=== PATIENT | male | born 1935 | race Caucasian/White ===

== ENCOUNTER 2020-02-06 06:29 | Day surgery (SDC) | payer OTHER ==
[2020-02-03 12:04] VITALS: BMI 27.9
--- NOTE | 2020-02-03 12:33 | RAD REPORT ---
EXAM DESCRIPTION: RAD - Chest Pa And Lat (2 Views) - 02/03/2020 12:27 pm CLINICAL HISTORY: pre-op Chest pain. COMPARISON: Chest Pa And Lat (2 Views) dated 12/22/2017; Abdomen Acute Series dated 04/18/2017; Chest P a And Lat (2 Views) dated 02/09/2017; Chest Pa And Lat (2 Views) dated 08/22/2016 FINDINGS: The lungs are emphysematous with linear scarring in both lung bases. Areas of pleural calc ification again noted, unchanged. The heart is normal in size. No displaced fractures. IMPRESSION: Moderate diffuse COPD.
[2020-02-03 12:54] LABS: Basophils % 0.8 % (0-1.3); Hematocrit 40.3 % (39.6-49.0); Lymphocytes % 23.6 % (15.3-44.8); MPV 8.5 fL (7.6-11.3); RBC Red Blood Cell Count 3.97 M/uL (4.33-5.43)
[2020-02-03 12:58] LABS: Protime INR 1.2
[2020-02-03 13:13] LABS: Potassium 4.6 mmol/L (3.5-5.1)
[2020-02-03 13:28] LABS: Blood Morphology Comment NOT SEEN (NOT SEEN); Platelet Estimate ADEQ; White Blood Cell Scan OK (OK)
--- OUTSIDE RECORDS SUMMARY | 2020-02-06 06:32 | XMS REPORT | Continuity of Care Document ---
:1935 Author Organization [facility] t Address 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 [place] [facility] 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 [place] of sinus[place] [facility] Mass of Mass of Problem Active Univers sinus sinus [facility] [place] [facility] Gait Gait Problem Active Univers disturbanc disturbanc it y of e e [place] [facility] Neuropathy Neuropathy Problem Active U nivers , , [place] peripheral peripheral [place] Problem Active Univers (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) Ph ysici ans Hearing Hearing Problem Active Univers loss, loss, [place]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 bilateral [place] At high At high Problem Active Univers risk for risk for ity of falls falls [place] [facility] Vertigo Vertigo Problem Active Univers [facility] [place] [facility] Otalgia of Otalgia of Problem Active U nivers both ears both ears [facility] [place] [facility] 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 ity of septum septum [place] [facility] SOB SOB Problem Active Univers (shortness (shortness it y of [place] breath[place] breath[place] exertion exertion ans History of History of Problem Resolve Univers 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 sinus[place] Phys [place] ans History of History of Problem Resolve Univers High blood High blood d it y of pressure pressure [place] [facility] Asbestos Asbestos Problem Active Unive rs exposure exposure it[facility] of [place] [facility] ans Abnormal Abnormal Problem Active Unive rs CT of the CT of the ity of chest chest [place] [facility] ans 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 [facility] [place] [facility] Sinusitis Sinusitis Problem Active Uni vers [facility] [place] [facility] Allergies, Adverse Reactions, Alerts Allergy Allergy Status Severity Reaction(s) Onset Inactive Treating Comm ents Source Name Type Date Date Clinician Demerol drug Active Univers TABS allergy [facility] [place] [facility] Penicill drug Active Univers ins allergy [facility] [place] [facility] Family History Family Member Diagnosis Comments Start Date Stop Date Source Sibling Family history of Univers [facility] of [place] allergies Physicians Mother Family history of Univers [facility] cancer Physicians Sister Family history of Univers [place] type 2 diabetes Physician s mellitus Sister Family history of Univers [place] malignant neoplasm Physic ians Social History Smoking Status Start Date Stop Date Source Former smoker [facility] xa Physicians Medications Ordered Filled Start Stop Current Ordering Indication Dosage Frequency Signature Comments Components Source Medication Medication Date Date Medication? Clinician (SIG) Name Name Teodora Araiza Yes JOS 2 QD TAKE 2 Uni vers 186 MG Oral 186 MG Oral 1-15 OSTROSKY CAPSULE ity of Capsule Capsule 00:00: M.D. DAILY [place] [facility] Spiriva Spiriva 2016-03 Yes IVETH QD INHALE 2 Uni vers Respimat Respimat 2-21 العراقي INHALATION ity of 1.25 1.25 00:00: M.D. S BY MOUTH [place] MCG/ACT MCG/ACT 00 DAILY Physici Inhalation Inhalation ans Aerosol Aerosol Solution Solution Teodora Araiza Yes JOS 2 QD TAKE 2 Uni vers 186 MG Oral 186 MG Oral 7-17 OSTROSKY CAPSULE ity of Capsule Capsule 00:00: M.D. DAILY [place] Physici ans Voriconazol Voriconazol Yes SHAE Q12H TAKE 1 Univers e 200 MG e 200 MG 2-27 ERICSSON TABLET i ty of Oral Tablet Oral Tablet 00:00: M.D. EVERY 12 [place] 00 HOURS Physici DAILY. ans Ondansetron Ondansetron 2016-0 Yes SHAE 1 Q0.3333D TAKE 1 Univers HCl - 4 MG HCl - 4 MG 2-27 ERICSSON TABLET 3 ity of Oral Tablet Oral Tablet 00:00: M.D. TIMES [place] 00 DAILY Physici ans carBAMazepi carBAMazepi 2015-03 Yes BENNIE 2 Q0.5D TAKE 2 Univers ne 100 MG ne 100 MG 1-30 GUTHIKONDA TABLET ity of Oral Tablet Oral Tablet 00:00: M.D. TWICE [place] Chewable Chewable 00 DAILY Physic i ans Lactulose Lactulose 2015-03 Yes MERRY 15 QD TAKE 15 ML Univers 10 GM/15ML 10 GM/15ML 1-02 MARS M.D. DAILY. ity of Oral Oral 00:00: [place] Solution Solution 00 Physici ans predniSONE predniSONE 2015-03 Yes MERRY take 4 Univers 10 MG Oral 10 MG Oral 1-02 AMRS M.D. tabs for 1 ity of Tablet Tablet 00:00: week [place] 00 take 2 Physici tabs for 3 ans days then 1 tab for 4 days. Diclofenac Diclofenac 2015-03 Yes MERRY 1 Q6H TAKE 1 Univers Sodium 50 Sodium 50 0-28 MARS M.D. TABLET ity of MG Oral MG Oral 00:00: EVERY 6 [place] Tablet Tablet 00 HOURS PRN Physic i Delayed Delayed pain ans Release Release Montelukast Montelukast Yes R.N. U nivers Sodium 10 Sodium 10 ity o f MG Oral MG Oral [place] Tablet Tablet Physici ans Omeprazole Omeprazole Yes R.N. Uni vers 40 MG Oral 40 MG Oral ity of Capsule Capsule [place] Delayed Delayed Physici Release Release ans Bystolic 10 Bystolic 10 Yes R.N. U nivers MG Oral MG Oral ity of Tablet Tablet [place] [facility]ici ans Vital Signs Vital Name Observation Time Observation Value Comments Source BP Systolic 2018-06-29 150 mm[Hg] Location: [facility] 11:29:00 Position: [place] Physician s Sitting BP Diastolic 2018-06-29 79 mm[Hg] Location: [facility] 11:29:00 Position: [place] Physician s Sitting Height 2018-06-29 70 [in_us] University of 11:29:00 [place] Physician s Weight 2018-06-29 163 [lb_av] University of 11:29:00 [place] [facility]ician s Body Mass Index 2018-06-29 23.39 kg/m2 University o f Calculated 11:29:00 [place] Physician s Heart Rate 2018-06-29 64 /min University of 11:29:00 [place] Phys[facility] s Respiration Rate 2018-06-29 18 /min University of 11:29:00 [place] Physician s O2 SAT 2018-06-29 98 % Source: [place] [facility] 11:29:00 [place] Physician s BP Systolic 2017-07-14 152 mm[Hg] University of 08:27:00 [place] Physician s BP Diastolic 2017-07-14 78 mm[Hg] University of 08:27:00 [place] Physician s Height 2017-07-14 70 [in_us] University of 08:27:00 [place] [facility]ician s Weight 2017-07-14 156.375 [lb_av] University o f 08:27:00 [place] [facility] s Body Mass Index 2017-07-14 22.44 kg/m2 University o f Calculated 08:27:00 [place] Physician s Temperature 2017-07-14 97.1 [degF] Method: Oral University of 08:27:00 [place] [facility] Heart Rate 2017-07-14 65 /min University of 08:27:00 [place] [facility] s Respiration Rate 2017-07-14 18 /min University of 08:27:00 [place] Phys[facility] s O2 SAT 2017-07-14 100 % Source: [facility] 08:27:00 [place] Phys[facility] s BP Systolic 2017-05-18 146 mm[Hg] University of 08:33:00 [place] Physician s BP Diastolic 2017-05-18 81 mm[Hg] University of 08:33:00 [place] [facility] s Height 2017-05-18 70 [in_us] University of 08:33:00 [place] [facility] s Weight 2017-05-18 154 [lb_av] University of 08:33:00 [place] [facility] s Body Mass Index 2017-05-18 22.1 kg/m2 University o f Calculated 08:33:00 [place] [facility] s Heart Rate 2017-05-18 56 /min University of 08:33:00 [place] Phys[facility] s BP Systolic 2017-04-30 173 mm[Hg] University of 13:21:00 [place] Phys[facility] s BP Diastolic 2017-04-30 81 mm[Hg] University of 13:21:00 [place] Physician s Height 2017-04-30 70 [in_us] University of 13:21:00 [place] [facility] s Weight 2017-04-30 165 [lb_av] University of 13:21:00 [place] [facility] s Body Mass Index 2017-04-30 23.68 kg/m2 University o f Calculated 13:21:00 [place] Phys[facility] s Heart Rate 2017-04-30 58 /min University of 13:21:00 [place] [facility] s Respiration Rate 2017-04-30 18 /min University of 13:21:00 [place] Physician s O2 SAT 2017-04-30 98 % Source: RA University of 13:21:00 [place] Physician s BP Systolic 2017-04-27 155 mm[Hg] University of 10:37:00 [place] Physician s BP Diastolic 2017-04-27 80 mm[Hg] University of 10:37:00 [place] Phys[facility] s Height 2017-04-27 70 [in_us] University of 10:37:00 [place] [facility] s Weight 2017-04-27 164 [lb_av] University of 10:37:00 [place] Phys[facility] s Body Mass Index 2017-04-27 23.53 kg/m2 University o f Calculated 10:37:00 [place] [facility] s Heart Rate 2017-04-27 65 /min University of 10:37:00 [place] Physician s BP Systolic 2017-03-30 128 mm[Hg] University of 10:54:00 [place] Physician s BP Diastolic 2017-03-30 66 mm[Hg] University of 10:54:00 [place] [facility] s Height 2017-03-30 70 [in_us] University of 10:54:00 [place] Phys[facility] s Weight 2017-03-30 163 [lb_av] University of 10:54:00 [place] [facility] s Body Mass Index 2017-03-30 23.39 kg/m2 University o f Calculated 10:54:00 [place] [facility] s Heart Rate 2017-03-30 76 /min University of 10:54:00 [place] [facility] s BP Systolic 2017-03-05 160 mm[Hg] University of 14:35:00 [place] [facility] s BP Diastolic 2017-03-05 67 mm[Hg] University of 14:35:00 [place] [facility] s Height 2017-03-05 70 [in_us] University of 14:35:00 [place] [facility] s Weight 2017-03-05 164 [lb_av] University of 14:35:00 [place] [facility] Body Mass Index 2017-03-05 23.53 kg/m2 University o f Calculated 14:35:00 [place] [facility] s Temperature 2017-03-05 97.2 [degF] Method: Oral University of 14:35:00 [place] [facility] Heart Rate 2017-03-05 56 /min University of 14:35:00 [place] [facility] s Respiration Rate 2017-03-05 18 /min University of 14:35:00 [place] [facility] s O2 SAT 2017-03-05 100 % Source: [facility] [place] [facility] 14:35:00 [place] [facility] s BP Systolic 2017-02-02 161 mm[Hg] University 11:27:00 [place] [facility] s BP Diastolic 2017-02-02 72 mm[Hg] [facility] 11:27: [place] [facility] s Height 2017-02-02 70 [in_us] [facility] 11:27: [place] [facility] s Weight 2017-02-02 164.5 [lb_av] [facility] 11:27: [place] [facility] Body Mass Index 2017-02-02 23.6 kg/m2 University o f Calculated 11:27:00 [place] [facility] s Temperature 2017-02-02 97.8 [degF] [facility] 11:27:00 [place] [facility] Heart Rate 2017-02-02 64 /min University 11:27:00 [place] [facility] Respiration Rate 2017-02-02 18 /min [facility] 11:27:00 [place] [facility] s O2 SAT 2017-02-02 100 % Source: [facility] [place] [facility] 11:27:00 [place] [facility] Procedures Procedure Date / Time Performing Clinician Source Performed [QLH] CMP W/EGFR 2018-06-29 00:00:00 [facility] Physicians [QLH] SED RATE BY 2018-06-29 00:00:00 [facility] MODIFIED [place] Physicians [QLH] C-REACTIVE PROTEIN 2018-06-29 00:00:00 [facility] Physicians [QLH] CBC (INCLUDES 2017-07-14 00:00:00 [facility] DIFF/PLT) Physicians [QLH] CMP W/EGFR 2017-07-14 00:00:00 [facility] [QLH] SED RATE BY 2017-07-14 00:00:00 [facility] MODIFIED [place] Physicians [QLH] C-REACTIVE PROTEIN 2017-07-14 00:00[facility]wo [facility] 2017-07-14 00:00:00 [facility] [id number] Chest wo contrast 2017-04-30 00:00:00 [facility] [id number] Physicians [L] GI Profile, Stool, 2017-04-23 00:00:00 [facility] PCR Physicians [QLH] CMP W/EGFR 2017-04-23 00:00:00 [facility] [QLH] CBC (INCLUDES 2017-04-23 00:00:00 [facility] DIFF/PLT) Physicians [QLH] SED RATE BY 2017-03-30 00:00:00 [facility] [QLH] HEPATIC FUNCTION 2017-03-30 00:00:00 [facility] PANEL Physicians [QLH] SED RATE BY 2017-02-02 00:00:00 [facility] MODIFIED [facility] Physicians [QL] C-REACTIVE PROTEIN 2017-02-02 00:00:00 [facility] Physicians [QLH] CBC (INCLUDES 2017-02-02 00:00:00 [facility] DIFF/PLT) Physicians [QLH] CBC (INCLUDES 2016-12-29 00:[facility] DIFF[facility]PLT[facility] Physicians [QL] COMPREHENSIVE 2016-12-29 00:00:00 [facility] METABOLIC PANEL W/O eGFR Physici ans MRI Brain w/wo contrast 2016-12-29 00:00:00 [facility] [id number] Physicians History of Cataract [facility] Surgery Physicians History of Nasal [facility] [place] septoplasty Physicians History of Sinus surgery [facility] Physicians Plan of Care Planned Activity Planned Date Details Comments Source Diagnostic Test 2017-08-28 CT Chest wo [place] [facility] Pending 00:00:00 contrast [id number] Physicians [code = 59481] Diagnostic Test 2017-08-28 CT Chest wo [place] [facility] Pending 00:00:00 contrast 64003 Physicians [code = 96508] Diagnostic Test 2017-08-28 CT Chest wo [facility] Pending 00:00:00 contrast [id number] Physicians [code = 23808] Encounters Start End Encounter Admission Attending Care Care Encounter Source Date/Time Date/Time Type Type Clinicians Facility Department ID 2018-11-08 2018-11-09 Emergency [facility]ly [facility] [id number] 22:38:50 00:51:00 Vale Martinez [id number] [place] [id number] [place] [id number] 2018-06-29 2018-06-29 AppointLENNOX G[facility] Infectious 51 [id number] Univers 11:00:00 11:00:00 t; Nita ARGUELLO Diseases [facility] [place] CHEN M.D. Physi ci ans 2017-07-14 2017-07-14 [facility]oint[facility] Infectious [id number] Univers 08:30:00 08:30:00 t; Nita ARGUELLO Diseases [facility] [place] CHEN M.D. Physi ci ans 2017-05-18 2017-05-18 [facility]oint[facility]X [facility] Infectious [id number] Univers 08:30:00 08:30:00 t; Nita ARGUELLO Diseases [facility] [place] CHEN M.D. Physi ci ans 2017-04-30 2017-04-30 AppointLENNOX [facility] & [id number] Univers 13:00:00 13:00:00 t; IVETH العراقي M.D. Sleep ity deny LAZARO M.D. [place] Physici ans 2017-04-27 2017-04-27 AppointLENNOX [facility] Infectious [id number] Univers 10:30:00 10:30:00 t; Nita ARGUELLO Diseases [facility] [place] CHEN M.D. Physi ci ans 2017-03-30 2017-03-30 AppointLENNOX [facility] Infectious [id number] Univers 10:30:00 10:30:00 t; Nita ARGUELLO Diseases [facility] [place] CHEN M.D. Physi ci ans 2017-03-05 2017-03-05 Appointmen LENNOX العراقي Pulmonary & [id number] Univers 14:00:00 14:00:00 t; IVEHT العراقي M.D. Sleep ity deny LAZARO M.D. [place] Physici ans 2017-02-02 2017-02-02 AppointLENNOX [facility] Infectious 35 [id number] Univers 10:30:00 10:30:00 t; JOS, M.D. Diseases [facility] [place] CHEN Nita ARGUELLO Physi ci ans 2016-12-29 2016-12-29 Appointmen APRIL, [facility] UTP [id number] Univers 10:30:00 10:30:00 t; Nita ARGUELLO APRIL [place] ARGEULLO M.D. Physi ci ans 2016-09-29 2016-09-29 Appointmen APRIL, [facility] UTP [id number] Univers 10:30:00 10:30:00 t; Nita ARGUELLO [place] ARGUELLO M.D. Physi ci ans 2016-07-21 2016-07-21 Appointmen APRIL, [facility] UTP [id number] Univers 08:30:00 08:30:00 t; Nita ARGUELLO [place] ARGUELLO M.D. Physi ci ans 2016-07-14 2016-07-14 Appointmen ADILSON, [facility] UTP [id number] Univers 10:40:00 10:40:00 t; celestina KAUFMAN M.D. [place] Kenisha KAUFMAN M.D. ans 2016-05-12 2016-05-12 Appointmen ADILSON, [facility] UTP [id number] Univers 08:40:00 08:40:00 t; celestina KAUFMAN M.D. [place] Kenisha KAUFMAN M.D. ans 2016-02-13 2016-02-13 Appointmen JYOTHI, [facility] UTP [id number] Univers 13:00:00 13:00:00 t; celestina AVERY M.D., LALITHA, Physi ci M.D. ans 2016-02-06 2016-02-06 Appointmen HARRISOU UTP UTP [id number] Univers 13:15:00 13:15:00 t; , Sandeep García M.D. Physici EFFROSYNI, ans MVarun 2016-01-24 2016-01-24 Appointmen MARS, LENNOX UTP [id number] Univers 14:00:00 14:00:00 t; MERRY CREWS ity o f WILLIAM, M.D. [place] M.D. Physici ans 2016-01-08 2016-01-08 Appointmen LENNOX CREWS [facility] [id number] Univers 14:00:00 14:00:00 t; MERRY CREWS ity o f WILLIAM, M.D. [place] M.D. Physic ans 2015-12-27 2015-12-27 Appointmen LENNOX CREWS UTP [id number] Univers 14:15:00 14:15:00 t; MERRY CREWS ity o f WILLIAM, M.D. [place] M.D. [facility] ans Results Test Description Test Time Test Comments Results Result Comments Source [[facility]] CBC (INCLUDES DIFF/PLT) 2018-06-29 12:25:01 Test Item Value Reference Range Interpretation Comme nts WBC (test code = 6690-2) 5.7 {K/CMM} 3.7-10.4 RBC; Below Low Threshold (test code = 789-8) 3.17 {M/CMM} 4.70-6.10 Hgb; Below Low Threshold (test code = 718-7) 11.9 g/dl 14.0-18.0 Hct; Below Low Threshold (test code = 23177-0) 35.9 % 42.0-54 .0 MCV; Above High Threshold (test code = 787-2) 113.2 fL 80.0-94. 0 MCH; Above High Threshold (test code = 785-6) 37.6 pg 27.0-31. 0 MCHC (test code = 786-4) 33.2 g/dl 32.0-36.0 RDW; Above High Threshold (test code = 788-0) 15.8 % 11.5-14. 5 Platelet (test code = 85487-7) 205 {K/CMM} 133-450 Mean Platelet Volume (test code = 05615-5) 7.4 fL 7.4-10.4 University [facility] Physicians[[facility]] CMP [id number] 12:25:01 Test Item Value Reference Range Interpretation Comments Sodium Level 142 {mEq/l} 135-145 (test code = 2951-2) Potassium Level 4.8 {mEq/l} 3.5-5.1 (test code = 2823-3) Chloride Level; 110 {mEq/l} 95-109 Above High Threshold (test code = 2074-0) Carbon Dioxide 26 {mEq/l} 24-32 (test code = 2027-9) AGAP (test code = 10.8 {mEq/l} 10.0-20.0 86339-5) Glucose Lvl; 113 mg/dl 70-99 Adult reference range Above High values reflect the Threshold (test clinical bin delinesof the code = 2345-7) [employer]. Creatinine Lvl; 1.50 mg/dl 0.50-1.40 Above High Threshold (test code = 2160-0) Blood Urea 30 mg/dl 7-22 Nitrogen; Above High Threshold (test code = 3094-0) BUN/Creatinine 20 6-25 Ratio (test code = 3097-3) Total Protein 8.2 g/dl 6.4-8.4 (test code = 2885-2) Albumin Lvl (test 3.7 g/dl 3.5-5.0 code = 1751-7) Globulin; Above 4.5 g/dl 2.7-4.2 High Threshold (test code = 84298-7) A/G Ratio (test 0.8 0.7-1.6 code = 1759-0) Calcium Level 9.3 mg/dl 8.5-10.5 Total (test code = 48587-4) ALT (test code = 18 u/l 0-65 1743-4) AST (test code = 23 u/l 0-37 73782-0) Alk Phos; Above 145 u/l 39-136 High Threshold (test code = 1783-0) Bili Total (test 0.5 mg/dl 0.2-1.3 code = 1974-2) eGFR (test code = 42 The eGFR i s calculated 00744-6) {ML/MIN/1.7} using the CKD-E PI formula. In mos t young, healthyindividu als the eGFR will be >9 0 mL/min/1.73m2. The eGFR declines with a ge. AneGFR of 60-89 may be normal in some population s, particularly th e elderly, forwhom the CKD -EPI formula has not been extensively isidra idated. Use of the eGFR isnot recommended in the following populations:Ind ividuals with unstable c reatinine concentrations, including patient s and those with seri ous co-morbid conditions.Zuri ents with extremes in mus sourav mass or diet.The gabby a above are obtained fr om the National Kidney Disease Education Progr am(NKDEP) which katelyn carcamo recommends that when the eGFR is used in patientswith ex tremes of body mass index for purposes of александр g dosing, the eGFR should be multiplied by t he estimated BMI. [facility]] C-REACTIVE [id number] 12:25:01 Test Item Value Reference Range Interpretation Comments CRP (test code = CRP) 18.9 mg/L <=2.9 [facility]] [id number] 12:25:01 Test Item Value Reference Range Interpretation Comments Segmented Neutrophils (test code 60.7 % 45.0-75.0 = 85326-1) Monocytes (test code = 86382-5) 8.6 % 2.0-12.0 Lymphocytes (test code = 37959-0) 29.0 % 20.0-40.0 Eosinophils (test code = 50882-0) 1.3 % 0.0-4.0 Basophils (test code = 706-2) 0.4 % 0.0-1.0 Segs-Bands # (test code = 3.5 {K/CMM} 1.5-8.1 94189-3) Lymphocytes # (test code = 1.7 {K/CMM} 1.0-5.5 17982-5) Monocytes # (test code = 77675-1) 0.5 {K/CMM} 0.0-0.8 Eosinophils # (test code = 0.1 {K/CMM} 0.0-0.5 15453-8) Plt Morphology (test code = Plt Normal Normal Morphology) Macrocyte (test code = Macrocyte) 3+ None Seen [facility]] SED RATE BY MODIFIED [id number] 12:25:01 Test Item Value Reference Range Interpretation Comments Sedimentation Rate; Above High 82 {mm/hr} 0-15 Threshold (test code = 17210-1) [facility] [id number] 10:13:00 Clinical Indication: J32.9 Chronic sinusitis, unspecified - J32.9 Chronicsinusitis, unspecifiedComparison: Comparison is made to the MR 01/08/2017 exam, and CT study of04/01/2016TECHNIQUE: Multiplanar pre- and post-gadolinium contrast-enhanced MRI of thebrain is performed on the 3 Florence magnet.Contrast: 10 cc of Dotarem was administered.FINDINGS:BRAIN PARENCHYMA: There is an altered marrow signalof the clivus, with aheterogenic gadolinium enhancement pattern consistent with fibroproliferativechanges. Patient with known prior invasive fungal sphenoid sinusitis. Thesphenoid sinus is non pneumatized with fibrotic changes and gadoliniumenhancement. The remaining paranasal sinuses are normally pneumatized. Patientis status post a right maxillary antrectomy and partial ethmoidectomy. There isno nasal polyposis or nasal cavity mass. There are no air-fluid levels present.The orbital fossa contents are normal. There is normal enhancement thecavernous sinus. There is normal flow from the 4th portions of both vertebralarteries, the basilar artery and intracranial carotid arteries. There is noacute cortical infarct, parenchymal hemorrhage or an intra-axial mass. There isminimal cortical atrophy. There is no cerebellar tonsillar ectopia. Thecochlea, vestibule and 7th and 8th nerve fascicles in normal. There is noabnormal leptomeningeal enhancement.VENTRICLES: There is no obstructive hydrocephalus.VESSELS: The expected intracranial flow voids are present. The venous sinusesare grossly unremarkable.IMPRESSION: There is an altered marrow signal of the clivus, with a heterogenicgadolinium enhancementpattern consistent with fibroproliferative changes.Patient with known prior invasive fungal sphenoidsinusitis. The sphenoid sinusis non pneumatized with fibrotic changes and gadolinium enhancement. Theremaining paranasal sinuses are normally pneumatized. Patient is status post aright maxillary antrectomy and partial ethmoidectomy. There is no nasalpolyposis or nasal cavity mass. There are no air-fluid levels present. Theorbital fossa contents are normal. There is normal enhancement the cavernoussinus.There is no acute cortical infarct, parenchymal hemorrhage or an intra-axialmass.SL: KHARI--Read by: Ashok Sepulvedaictated Date/time: 07/31/17 11:09Electronically Signed by: Ashok Sepulveda MD 07/31/1810:23[facility]] CMP [id number] 11:21:00 Test Item Value Reference Range Interpretation Comments GLUCOSE; Above 101 mg/dl 65-99 Fasting refer ence High Threshold interval For someone (test code = without known d lynne, 1547-9) a glucose value between 100 and 125 mg/ dL is consistent withprediabetes and should be confi rmed with afollow-up test. UREA NITROGEN 22 mg/dl 7-25 N (BUN) (test code = UREA NITROGEN (BUN)) CREATININE (test 1.33 mg/dl 0.70-1.11 For patient s >49 years code = CREATININE) of age, t he reference limitfor Creati nine is approximately 1 3% higher for peopleidentifie d as -Francisca n. eGFR NON- 49 > OR = 60 MARSHALLESE (test {ML/MIN/1.7} code = eGFR NON-) eGFR 57 > OR = 60 MARSHALLESE (test {ML/MIN/1.7} code = eGFR ) BUN/CREATININE 17 {CALC} 6-22 N RATIO (test code = BUN/CREATININE RATIO) SODIUM (test code 143 mmol/L 135-146 N = SODIUM) POTASSIUM (test 4.4 mmol/L 3.5-5.3 N code = POTASSIUM) CHLORIDE (test 107 mmol/L 98-110 N code = CHLORIDE) CARBON DIOXIDE 31 mmol/L 20-31 N (test code = CARBON DIOXIDE) CALCIUM (test code 9.0 mg/dl 8.6-10.3 N = CALCIUM) PROTEIN, TOTAL 6.9 g/dl 6.1-8.1 N (test code = PROTEIN, TOTAL) ALBUMIN (test code 3.5 g/dl 3.6-5.1 = ALBUMIN) GLOBULIN (test 3.4 {G/DL 1.9-3.7 N code = GLOBULIN) CALC} ALBUMIN/GLOBULIN 1.0 {CALC} 1.0-2.5 N RATIO (test code = ALBUMIN/GLOBULIN RATIO) BILIRUBIN, TOTAL; 0.5 mg/dl 0.2-1.2 N Normal (test code = 06214-1) ALKALINE 321 u/l 40-115 PHSPHATASE (test code = ALKALINE PHSPHATASE) AST; Normal (test 19 u/l 10-35 N code = 1916-6) ALT; Normal (test 18 u/l 9-46 N code = 1742-6) [facility]] SED RATE BY RANDOLPH [id number] 11:21:00 Test Item Value Reference Range Interpretation Comments SED RATE BY MODIFIED LANREERGREN (test 55 mm/h < OR = 20 code = SED RATE BY MODIFIED ANDREREN) [facility]] CBC (INCLUDES DIFF/PLT)2017-07-21 11:21:00 Test Item Value Reference Range Interpretation Comments WHITE BLOOD CELL COUNT 5.9 {Thousand/u} 3.8-10.8 N (test code = WHITE BLOOD CELL COUNT) RED BLOOD CELL COUNT (test 3.11 {Million/uL} 4.20-5.80 code = RED BLOOD CELL COUNT) HEMOGLOBIN; Below Low 10.4 g/dl 13.2-17.1 Threshold (test code = 46413-3) HEMATOCRIT; Below Low 31.8 % 38.5-50.0 Threshold (test code = 4544-3) MCV; Above High Threshold 102.3 fL 80.0-100.0 (test code = 787-2) MCHC; Normal (test code = 32.7 g/dl 32.0-36.0 N 68256-7) RDW; Normal (test code = 13.5 % 11.0-15.0 N 788-0) PLATELET COUNT; Normal 200 {Thousand/u} 140-400 N (test code = 777-3) MPV; Normal (test code = 10.2 fL 7.5-12.5 N 64742-6) ABSOLUTE NEUTROPHILS (test 3357 {cells/uL} 3466-6657 N code = ABSOLUTE NEUTROPHILS) ABSOLUTE LYMPHOCYTES (test 1918 {cells/uL} 850-3900 N code = ABSOLUTE LYMPHOCYTES) ABSOLUTE MONOCYTES (test 507 {cells/uL} 200-950 N code = ABSOLUTE MONOCYTES) ABSOLUTE EOSINOPHILS (test 89 {cells/uL} 15-500 N code = ABSOLUTE EOSINOPHILS) ABSOLUTE BASOPHILS (test 30 {cells/uL} 0-200 N code = ABSOLUTE BASOPHILS) NEUTROPHILS (test code = 56.9 % N NEUTROPHILS) LYMPHOCYTES (test code = 32.5 % N LYMPHOCYTES) MONOCYTES; Normal (test 8.6 % N code = 44067-1) EOSINOPHILS; Normal (test 1.5 % N code = 90751-8) BASOPHILS; Normal (test 0.5 % N code = 99793-0) [facility]] C-REACTIVE [id number] 11:21:00 Test Item Value Reference Range Interpretation Comments C-REACTIVE PROTEIN (test code = 45.2 mg/L <8.0 C-REACTIVE PROTEIN) [facility] [id number] 19:00:00 Test Item Value Reference Range Interpretation Comments Completed (test code = Completed) DONE [facility][L] GI Profile, Stool, [id number] 09:25:00 Test Item Value Reference Range Interpretation Comments Campylobacter (test code = Not Detected Not Detected Campylobacter) C difficile toxin A/B (test Not Detected Not Detected code = C difficile toxin A/B) Plesiomonas shigelloides (test Not Detected Not Detected code = Plesiomonas shigelloides) Salmonella (test code = Not Detected Not Detected Salmonella) Vibrio (test code = Vibrio) Not Detected Not Detected Vibrio cholerae (test code = Not Detected Not Detected Vibrio cholerae) Yersinia enterocolitica (test Not Detected Not Detected code = Yersinia enterocolitica) Enteroaggressive E coli (test Not Detected Not Detected code = Enteroaggressive E coli) Enteropathogenic E coli (test Not Detected Not Detected code = Enteropathogenic E coli) Enterotoxigenic E coli (test Not Detected Not Detected code = Enterotoxigenic E coli) Urfnei-fehgm-swzcmfuuu E coli Not Detected Not Detected (test code = Pwqjpi-fdodp-dpxahwrdq E coli) E coli O157 (test code = E Not applicable Not Detected coli O157) Shigella/Enteroinvasive E coli Not Detected Not Detected (test code = Shigella/Enteroinvasive E coli) Cryptosporidium (test code = Not Detected Not Detected Cryptosporidium) Cyclospora cayetanensis (test Not Detected Not Detected code = Cyclospora cayetanensis) Entamoeba histolytica (test Not Detected Not Detected code = Entamoeba histolytica) Giardia lamblia (test code = Not Detected Not Detected Giardia lamblia) Adenovirus F 40/41 (test code Not Detected Not Detected = Adenovirus F 40/41) Astrovirus (test code = Not Detected Not Detected Astrovirus) Norovirus GI/GII (test code = Not Detected Not Detected Norovirus GI/GII) Rotavirus A (test code = Not Detected Not Detected Rotavirus A) Sapovirus (test code = Not Detected Not Detected Sapovirus) [facility][] COMPREHENSIVE METABOLIC PANEL W/O eGFR 2017-04-24 09:25:00 Test Item Value Reference Range Interpretation Comments Glucose, Serum; Above High 113 mg/dL 65-99 Threshold (test code = 2345-7) BUN (test code = 3094-0) 21 mg/dL 8-27 Creatine, Serum (test code = 1.23 mg/dL 0.76-1.27 2160-0) eGFR If NonAfricn Am; Below Low 54 mL/min/1.7 >59 Threshold (test code = 63028-5) eGFR If Africn Am (test code = 62 mL/min/1.7 >59 43734-5) BUN/Creatine Ratio (test code = 17 10-24 3097-3) Sodium, Serum (test code = 142 mmol/L 091-779 8205-2) Potassium, Serum (test code = 3.7 mmol/L 3.5-5.2 2823-3) Chloride, Serum (test code = 103 mmol/L 96-106 2075-0) Carbon Dioxide, Total (test 24 mmol/L 18-29 code = 2028-9) Calcium, Serum (test code = 8.9 mg/dL 8.6-10.2 67967-4) Protein, Total, Serum (test 6.4 g/dL 6.0-8.5 code = 2885-2) Albumin, Serum (test code = 3.7 g/dL 3.5-4.7 1751-7) Globulin, Total (test code = 2.7 g/dL 1.5-4.5 84177-3) A/G Ratio (test code = 1759-0) 1.4 1.2-2.2 Bilirubin, Total (test code = 0.4 mg/dL 0.0-1.2 1975-2) Alkaline Phosphatase, S; Above 247 {IU/L} 39-117 High Threshold (test code = 6768-6) AST (SGOT) (test code = 1920-8) 27 {IU/L} 0-40 ALT (SGPT) (test code = 1742-6) 22 {IU/L} 0-44 [facility] wo contrast [id number] 09:05:00CT CHEST WITHOUT CONTRAST:HISTORY: Dyspnea on exertion, history of asbestos exposure.TECHNIQUE: Multislice axial acquisitions were done through the chest withoutcontrast. Sagittal and coronal reformatted images were also obtained. DLP 202mGy/cm.FINDINGS: There is no evidence of lung mass. There is a 1.4 cm groundglassopacity in the medial left apical region adjacent to an osteophyte from thethoracic spine.There are multiple small calcified pleural plaques on both sides with mild softtissue thickening, previously demonstrated on the chest CT of 04/08/2016. Thereis no definite associated pleural mass.There is mild septal thickening in the lung bases. There are no othersignificant pulmonary or pleural abnormalities. There has been resolution of pulmonary edema and bilateral pleural effusions since the previous CT.There is no mediastinal mass or significant lymph node enlargement. Extensiveatherosclerotic calcification in the aorta and coronary arteries is noted.There are no acute osseous abnormalit ies.IMPRESSION:1. Small groundglass opacity in the left apical region. Follow-up CT in 3-6months is recommended. There is no evidence of other lung mass.2. Bilateral calcified pleural plaques without definite pleural mass.3. No other acute CT abnormalities of the chest. [id number] by: Poli Acuña MDDictated Date/time: 04/09/17 16:48Electronically Signed by: Poli Acuña MD 04/09/1815:56FINAL [facility]PORTUn[facility] [[facility]] HEPATIC FUNCTION [id number] 13:43:00 Test Item Value Reference Range Interpretation Comments PROTEIN, TOTAL 7.3 g/dl 6.1-8.1 N (test code = PROTEIN, TOTAL) ALBUMIN (test code 3.9 g/dl 3.6-5.1 N = ALBUMIN) GLOBULIN (test code 3.4 {G/DL 1.9-3.7 N = GLOBULIN) CALC} ALBUMIN/GLOBULIN 1.1 {CALC} 1.0-2.5 N RATIO (test code = ALBUMIN/GLOBULIN RATIO) BILIRUBIN, DIRECT; 0.1 mg/dl < OR = 0.2 N Normal (test code = 57610-1) BILIRUBIN, 0.3 {MG/DL 0.2-1.2 N INDIRECT; Normal JOSHUA} (test code = 1971-1) ALKALINE PHOSPHATE 223 u/l 40-115 (test code = ALKALINE PHOSPHATE) AST; Normal (test 32 u/l 10-35 N code = 1916-6) ALT; Normal (test 26 u/l 9-46 N SPECIMEN R ECEIVED code = 1742-6) DATE AND TIME : [id number] ALKALINE PHSPHATASE 223 u/l 40-115 (test code = ALKALINE PHSPHATASE) [facility]] SED RATE BY MODIFIED [id number] 13:43:00 Test Item Value Reference Range Interpretation Comments SED RATE BY MODIFIED 74 mm/h < OR = 20 SPECIME N RECEIVED DATE HAMILTON (test code AND TI ME: [id number] = SED RATE BY MODIFIED WESTERGREN) [facility]iciansTobacco Use [id number] 20:00:00 Test Item Value Reference Range Interpretation Comments Completed (test code = Completed) DONE [facility]] SED RATE BY MODIFIED [id number] 11:26:00 Test Item Value Reference Range Interpretation Comments SED RATE BY MODIFIED 79 mm/h < OR = 20 SPECIME N RECEIVED DATE HAMILTON (test code AND TI ME: [id number] = SED RATE BY MODIFIED WESTERGREN) [facility]] CBC (INCLUDES DIFF/PLT)2017-02-03 11:26:00 Test Item Value Reference Range Interpretation Comments WHITE BLOOD CELL 9.4 3.8-10.8 N COUNT (test code = {Thousand/u} WHITE BLOOD CELL COUNT) RED BLOOD CELL COUNT 3.16 4.20-5.80 (test code = RED {Million/uL} BLOOD CELL COUNT) HEMOGLOBIN; Below 10.5 g/dl 13.2-17.1 Low Threshold (test code = 93890-6) HEMATOCRIT; Below 31.8 % 38.5-50.0 Low Threshold (test code = 4544-3) MCV; Above High 100.6 fL 80.0-100.0 Threshold (test code = 787-2) MCHC; Normal (test 33.0 g/dl 32.0-36.0 N code = 22382-3) RDW; Normal (test 14.2 % 11.0-15.0 N code = 788-0) PLATELET COUNT; 233 140-400 N Normal (test code = {Thousand/u} 777-3) MPV; Normal (test 9.8 fL 7.5-12.5 N code = 01339-7) ABSOLUTE NEUTROPHILS 6129 2641-8486 N (test code = {cells/uL} ABSOLUTE NEUTROPHILS) ABSOLUTE LYMPHOCYTES 2322 850-3900 N (test code = {cells/uL} ABSOLUTE LYMPHOCYTES) ABSOLUTE MONOCYTES 733 {cells/uL} 200-950 N (test code = ABSOLUTE MONOCYTES) ABSOLUTE EOSINOPHILS 160 {cells/uL} 15-500 N (test code = ABSOLUTE EOSINOPHILS) ABSOLUTE BASOPHILS 56 {cells/uL} 0-200 N (test code = ABSOLUTE BASOPHILS) NEUTROPHILS (test 65.2 % N code = NEUTROPHILS) LYMPHOCYTES (test 24.7 % N code = LYMPHOCYTES) MONOCYTES; Normal 7.8 % N (test code = 30695-4) EOSINOPHILS; Normal 1.7 % N (test code = 15498-9) BASOPHILS; Normal 0.6 % N SPECIMEN R ECEIVED (test code = DATE AND TIME: 50913-2) [id number] [facility]] C-REACTIVE [id number] 11:26:00 Test Item Value Reference Range Interpretation Comments C-REACTIVE PROTEIN 33.5 mg/L <8.0 SPECIMEN RECEIVED DATE (test code = AND TIME: [id number] C-REACTIVE PROTEIN) [facility]] SED RATE BY MODIFIED [id number] 14:32:00 Test Item Value Reference Range Interpretation Comments SED RATE BY MODIFIED WESTERGREN (test 58 mm/h < OR = 20 code = SED RATE BY MODIFIED WESTERGREN) [facility]] CBC (INCLUDES DIFF/PLT)2016-12-29 14:32:00 Test Item Value Reference Range Interpretation Comments WHITE BLOOD CELL COUNT 6.8 {Thousand/u} 3.8-10.8 N (test code = WHITE BLOOD CELL COUNT) RED BLOOD CELL COUNT (test 3.04 {Million/uL} 4.20-5.80 code = RED BLOOD CELL COUNT) HEMOGLOBIN; Below Low 9.7 g/dl 13.2-17.1 Threshold (test code = 01817-4) HEMATOCRIT; Below Low 29.1 % 38.5-50.0 Threshold (test code = 4544-3) MCV; Normal (test code = 95.7 fL 80.0-100.0 N 787-2) MCHC; Normal (test code = 33.3 g/dl 32.0-36.0 N 28088-9) RDW; Normal (test code = 14.2 % 11.0-15.0 N 788-0) PLATELET COUNT; Normal 224 {Thousand/u} 140-400 N (test code = 777-3) MPV; Normal (test code = 9.8 fL 7.5-12.5 N 53261-2) ABSOLUTE NEUTROPHILS (test 4005 {cells/uL} 6170-0481 N code = ABSOLUTE NEUTROPHILS) ABSOLUTE LYMPHOCYTES (test 1979 {cells/uL} 850-3900 N code = ABSOLUTE LYMPHOCYTES) ABSOLUTE MONOCYTES (test 551 {cells/uL} 200-950 N code = ABSOLUTE MONOCYTES) ABSOLUTE EOSINOPHILS (test 218 {cells/uL} 15-500 N code = ABSOLUTE EOSINOPHILS) ABSOLUTE BASOPHILS (test 48 {cells/uL} 0-200 N code = ABSOLUTE BASOPHILS) NEUTROPHILS (test code = 58.9 % N NEUTROPHILS) LYMPHOCYTES (test code = 29.1 % N LYMPHOCYTES) MONOCYTES; Normal (test 8.1 % N code = 29485-2) EOSINOPHILS; Normal (test 3.2 % N code = 95832-1) BASOPHILS; Normal (test 0.7 % N code = 99928-2) [facility]
[2020-02-06] MEDS ORDERED: NA CHLORIDE 0.9% 500 ML ONE (06:59)
[2020-02-06] MEDS ORDERED: LIDOCAINE 1% 20 ML MDV ONE (14:13)
[2020-02-06] MEDS ORDERED: HEPA 1000U/500MLS 1,000 UNIT/500 ML BAG IV ONE (14:13)
[2020-02-06] MEDS ORDERED: MIDAZOLAM HCL 2 MG/2 ML INJ ONE (14:14)
[2020-02-06] MEDS ORDERED: FENTANYL CITR 100 MCG/2 ML ONE (14:14)
[2020-02-06] MEDS ORDERED: ATROPINE SULF 1 MG/10 ML SYR IV ONE (14:14)
[2020-02-06] MEDS ORDERED: ACETYLCYST 20% 4 ML VIAL IH ONE (14:55)
[2020-02-06 18:41] VITALS: BP 123/84; TEMP 97; O2SAT 97
--- NOTE | 2020-02-07 11:39 | OP ---
Date of Procedure: 02/06/2020 Surgeon: Nicholas Mclean MD Clinical Massage Therapist: Dr. Diaz and Ember Goodwin. Procedure: Selective bilateral carotid angiogram. Indication: Bilateral CVD by carotid Doppler. Mr. Sheets is an 84-year-old male, who has had a hi story of hypertension, diabetes, dyslipidemia, cerebrovascular disease, and documented carotid stenos is by Doppler. Recently, he was scheduled for carotid angiogram today as an outpatient. Procedure In Detail: He was brought to the [employer], prepped and draped in the routine sterile fashi on, given Versed and fentanyl for IV sedation. Using the Seldinger technique, 10 cc of Xylocaine was injected in the right common femoral artery area. A 6-Chilean sheath was introduced in the right com mon femoral artery successfully. A JR4 catheter was used to select the right carotid artery initiall y. Then, he was moved to the left carotid artery to select both common carotid. The common carotids were both normal. The external carotids were both normal, but he had a 70% to 80% stenosis in both internal carotid artery right at the ostium. 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 The stenosis in the left carotid was estimated at 70% to 80% stenosis. The patient tolerated the procedure well. There were no complications. Blood Loss: 5 cc. Anesthesia: Total conscious sedation was 45 minutes. Final Impression: Severe bilateral internal carotid artery stenosis. Plan is for bilateral carotid endarterectomy by Dr. Fausto Lay at [facility] in [facility]. Plan: The plan is for him to go home today after 2 hours of bedrest. Angio-Seal was used to close t he case. The patient will continue his medications right now. He will hold his anticoagulant 2 days before his endarterectomy. KATELYN/RAYN Voice ID: [id number] Report ID: [id number]
== END 2020-02-06 18:03 | disposition home or self-care (01) ==
LOC: CCL 06:29
DX: I65.23 Occlusion and stenosis of bilateral carotid arteries (principal); I48.0 Paroxysmal atrial fibrillation; I10 Essential (primary) hypertension; E78.2 Mixed hyperlipidemia; E11.9 Type 2 diabetes mellitus without complications; J44.1 Chronic obstructive pulmonary disease with (acute) exacerbation; F17.210 Nicotine dependence, cigarettes, uncomplicated; Z88.6 Allergy status to analgesic agent; Z20.828 Contact with and (suspected) exposure to other viral communicable diseases
CPT/HCPCS: 85025; 80048; 36415; 85610; 85730; 71046; 36222; U0002; C1893; C1760; J2250; J3010; J7040; J1644

== ENCOUNTER 2020-03-30 00:15 | Emergency (ER) | payer OTHER ==
--- OUTSIDE RECORDS SUMMARY | 2020-03-30 00:18 | XMS REPORT | Clinical Summary ---
:1935 Author Organization [facility] Address [address] [place] [address] Care Team Providers Name Role Phone Peyman Strausslain Unavailable Allergies Active Allergy Reactions Severity Noted Date Comments Meperidine Hcl 11/08/2018 Other reactio n(s): Unknown - See comments Medications Medication Sig Dispensed Refills Start Date End Date Status apixaban (Eliquis) 2.5 Take 2.5 mg by 0 Active mg Tab tablet mouth 2 (two) times daily. montelukast (SINGULAIR) Take 10 mg by 0 Active 10 mg tablet mouth nightly. metoprolol tartrate Take 50 mg by 0 Active (LOPRESSOR) 50 MG tablet mouth 2 (two) times daily. atorvastatin (LIPITOR) Take 10 mg by 0 Active 10 MG tablet mouth daily. sulfaSALAzine Take 500 mg by 0 A ctive (AZULFIDINE) 500 mg mouth 3 (three) tablet times daily as needed. folic acid (FOLVITE) 1 Take 1 mg by 0 Active MG tablet mouth daily. Active Problems Problem Noted Date Stenosis of right carotid artery 02/22/2020 Carotid stenosis, right 02/22/2020 Hypertension Carotid artery occlusion Encounters Date Type Specialty Care Team Description 03/07/2020 Office Visit Cardiology Rosanne, Postoperative s danis Edmondson (Primary Dx) 02/23/2020 Travel 02/22/2020 Surgery Rosanne, ENDARTERECTOMY, Kurt Moy MD 02/22/2020 Anesthesia Event Erik Green, Kaleb Lew 02/22/2020 - Hospital Encounter Cardiology Rosanne, 02/23/2020 Fausto Edmondson MD 02/21/2020 Hospital Encounter Pre-Admission Testing 02/21/2020 Travel 02/20/2020 Office Visit Cardiology Rosanne, Pre-op testing Fausto Edmondson, (Primary Dx) Denton Hsu, JOYCE 02/20/2020 Orders Only General Internal Medicine 02/20/2020 Travel 02/15/2020 Office Visit Cardiology Rosanne, Pre-op testing (Primary Dx); Fausto Edmondson, Essential hy pertension; Bilateral carot id artery occlusion 02/15/2020 Travel after 03/30/2019 Family History Medical History Relation Name Comments Stroke Brother Emphysema Father Stroke Mother Relation Name Status Comments Brother Father Mother Social History Tobacco Use Types Packs/Day Years Used Date Former Smoker 0.25 25 Quit: 1989 Smokeless Tobacco: Current User Chew Alcohol Use Drinks/Week oz/Week Comments Not Currently Sex Assigned at Date Recorded Not on file Last Filed Vital Signs Vital Sign Reading Time Taken Comments Blood Pressure 133/68 03/07/2020 10:54 AM DUSTLESS OPERATOR Pulse 89 03/07/2020 10:54 AM DUSTLESS OPERATOR Temperature 37 C (98.6 F) 03/07/2020 10:54 AM DUSTLESS OPERATOR Respiratory Rate 18 03/07/2020 10:54 AM DUSTLESS OPERATOR Oxygen Saturation 98% 03/07/2020 10:54 AM DUSTLESS OPERATOR room a ir Inhaled Oxygen Concentration - - Weight 86.6 kg (191 lb) 03/07/2020 10:54 AM DUSTLESS OPERATOR Height 177.8 cm (5' 10") 03/07/2020 10:54 AM DUSTLESS OPERATOR Body Mass Index 27.41 03/07/2020 10:54 AM DUSTLESS OPERATOR Plan of Treatment Health Maintenance Due Date Last Done Comments PNEUMOCOCCAL 65+ YRS (1 of 1 - WERZ30_Ytdocgm PCV13) 1999 MEDICARE ANNUAL WELLNESS (YEAR 2 or FIRST YEAR if no 02/15/2000 IPPE) INFLUENZA VACCINE (#1) 2019 DEPRESSION SCREENING (12+) 03/16/2020 Implants Implanted Type Area Glass Cleaner Device Shelf Model / Identifier Expiration Serial / Date Lot Grft Hemshld Dbl Berny 0.3x3.0in [id number] - [id number] IMPLANT S Right: GETINGE 05/13/2024 [id number] / Implanted: Qty: 1 on 02/22/2020 by Fausto Fletcher MD at [facility] Neck IND:MAJAMEST:CV / [id number] Description:HEMASHIELD KNITTED DOUBLE VE LOUR CARDIOVASCULAR FABRIC PATCH FOR RIGHT CAROTID ARTERY Procedures Procedure Name Priority Date/Time Associated Comments Diagnosis MAGNESIUM Routine 02/23/2020 4:19 Results for this AM DUSTLESS OPERATOR procedure are i n the results section. BASIC METABOLIC Routine 02/23/2020 4:19 Results for this PANEL (7) AM DUSTLESS OPERATOR procedure are i n the results section. CBC (HEMOGRAM ONLY) Routine 02/23/2020 4:19 Resu lts for this AM DUSTLESS OPERATOR procedure are i n the results section. TISSUE EXAM AP Routine 02/22/2020 9:24 Results for this AM DUSTLESS OPERATOR procedure are i n the results section. ENDARTERECTOMY,BOONE 02/22/2020 7:29 Carotid stenosis, TID AM DUSTLESS OPERATOR right Special Needs (ICU BED NEEDED) TYPE AND SCREEN, AUTOMATED STAT 02/22/2020 6:34 AM DUSTLESS OPERATOR Results for this procedure are i n the results section . POCT-GLUCOSE METER Routine 02/22/2020 5:50 AM DUSTLESS OPERATOR Results for this procedure are i n the results section . ECG 12-LEAD Routine 02/20/2020 7:59 AM DUSTLESS OPERATOR Procedure Note - Interface, External Ris In - 02/20/2020 9:10 AM DUSTLESS OPERATOR Ventricular Rate 80 BPM Atrial Rate 80 BPM P-R Interval 180 ms QRS Duration 88 ms Q-T Interval 398 ms QTC Calculation(Bazett) 459 ms P [place] 78 degrees R [place] 49 degrees T [place] 39 degrees Normal sinus rhythm Nonspecific ST abnormality Abnormal ECG No previous ECGs available ECG 12-LEAD Routine 02/20/2020 7:59 AM Pre-op testing Result s for this DUSTLESS OPERATOR procedure are i n the results section. SARS-COV2/RT-PCR ([facility] Routine 02/20/2020 7:54 AM Pre-op test ing Results for this & REF LABS) DUSTLESS OPERATOR procedure are i n the results section. CBC W/PLT COUNT & AUTO Routine 02/15/2020 12:14 PM Results for this DIFFERENTIAL DUSTLESS OPERATOR procedure are i n the results section. TYPE AND SCREEN, Routine 02/15/2020 12:14 PM Resu lts for this AUTOMATED DUSTLESS OPERATOR procedure are i n the results section. BASIC METABOLIC PANEL Routine 02/15/2020 12:14 PM Results for this (7) DUSTLESS OPERATOR procedure are i n the results section. CBC W/PLT COUNT & AUTO Routine 02/15/2020 12:14 PM Results for this DIFFERENTIAL DUSTLESS OPERATOR procedure are i n the results section. PROTHROMBIN TIME/INR Routine 02/15/2020 12:13 PM Results for this DUSTLESS OPERATOR procedure are i n the results section. after 03/30/2019 Results CBC (Hemogram only) (02/23/2020 4:19 AM DUSTLESS OPERATOR) Pathologist Sig nature WBC 11.3 (H) 3.5 - 10.5 K/L [facility] RBC 3.10 (L) 4.63 - 6.08 M/L [facility] Hemoglobin 10.3 (L) 13.7 - 17.5 GM/DL [facility] Hematocrit 33.7 (L) 40.1 - 51.0 % [facility] MCV 108.7 (H) 79.0 - 92.2 fL [facility] MCH 33.2 (H) 25.7 - 32.2 pg [facility] MCHC 30.6 (L) 32.3 - 36.5 GM/DL [facility] RDW 14.6 (H) 11.6 - 14.4 % [facility] Platelets 160 150 - 450 K/CU MM [facility] MPV 10.0 9.4 - 12.4 fL [facility] nRBC 0 0 - 0 /100 WBC [facility] Specimen Blood Performing Organization Address City/[facility]/Zipcode Phone Number [address] [address] CENTER Magnesium (02/23/2020 4:19 AM DUSTLESS OPERATOR) Pathologist Sig nature Magnesium 2.1 1.6 - 2.6 mg/dL [facility] Specimen Blood Narrative Performed At Spreader Operator RAINE Davila [facility] Performing Organization Address City/State/Zipcode Phone Number [address] [address] CENTER Basic Metabolic Panel (02/23/2020 4:19 AM DUSTLESS OPERATOR)Only the most recent of2 results within the time period is included. Sodium 139 136 - 145 meq/L [facility] Potassium 5.0 3.5 - 5.1 meq/L [facility] Chloride 106 98 - 107 meq/L [facility] CO2 23 22 - 29 meq/L [facility] BUN 27 (H) 7 - 21 mg/dL [facility] Creatinine 1.48 (H) 0.57 - 1.25 [facility] mg/dL [facility] Glucose 119 (H) 70 - 105 mg/dL [facility] Calcium 8.8 8.4 - 10.2 [facility] mg/dL [facility] EGFR 45Comment: ESTIMATED mL/min/1.73 sq [facility] GFR IS NOT m [facility] ACCURATE [place] CREATININE CLEARANCE IN PREDICTING GLOMERULAR FILTRATION RATE. ESTIMATED GFR IS NOT APPLICABLE FOR DIALYSIS PATIENTS. Specimen Blood Narrative Performed At Spreader Operator ID - KYLIE M [facility] Performing Organization Address City/State/Zipcode Phone Number [facility] [address] [place] [address] CENTER Tissue Exam (02/22/2020 9:24 AM DUSTLESS OPERATOR) Case Report Surgical Pathology Report Case: [id number] [facility] Authorizing Provider: Fausto Vega, Collected: 02/22/2020 09:24 AM [facility] Ordering Location: [facility] [place] Shakir TONG Received: 02/22/2020 10:31 AM PERIOPERATIVE SERVICES Pathologist: Angelo Valdez MD Specimen: Plaque, RIGHT CAROTID PLAQUE DIAGNOSIS ARTERY, RIGHT CAROTID, ENDARTERECTOMY: [facility] Electronically CALCIFIC ATHEROSCLEROTIC PLAQUE [facility] signed by Angelo Valdez Signing Pathologist Direct Phone Line: [facility] MD Naren on 02/24/2020 at 7:08 PM CPT Code(s) 42001; [address]10 [facility] CLINICAL HISTORY Carotid stenosis, [facility] SPECIMEN SOURCE Plaque [facility] GROSS DESCRIPTION Received in formalin labeled the patient's name, accession number and "right carotid plaque" is a 3.4 cm in length by 0.5 cm in diameter raymundo-yellow tubular piece of focally calcified plaque. Representa [facility] tive sections are submitted in A1 following decalcific ation. [facility] CHRISTINA Ross, HT (ASCP) MICROSCOPIC Performed [facility] Specimen Tissue - Plaque (morphologic abnormality ) Performing Organization Address City/[facility]/[place] [address] CENTER Type and screen, automated (02/22/2020 6:34 AM DUSTLESS OPERATOR)Only the most recent of2 resultswithin the time period is included. Pathologist Sig nature ABO/RH AUTOMATED O POSITIVE [facility] Ab Scrn NEGATIVE [facility] Specimen Blood Performing Organization Address [facility]/Rustcode Phone Number [address] [phone] POC-Glucose meter (02/22/2020 5:50 AM DUSTLESS OPERATOR) POC-Glucose Meter 102 70 - 110 [facility] Comment: mg/dL [facility] : TESTED AT [address], [address] [facility] : Spreader Operator/Skilled Laborer ID = [id number] for TONO RIVERA Specimen Blood Performing Organization Address City/[facility]/Zipcode Phone Number [address] [address] CENTER ECG 12 lead (02/20/2020 7:59 AM DUSTLESS OPERATOR) Specimen Narrative Performed At This result has an attachment that is no t available. Ventricular Rate 80 BPM GE MUSE Atrial Rate 80 BPM P-R Interval 180 ms QRS Duration 88 ms Q-T Interval 398 ms QTC Calculation(Bazett) 459 ms P [place] 78 degrees R [place] 49 degrees T [place] 39 degrees Normal sinus rhythm Nonspecific ST abnormality Abnormal ECG No previous ECGs available Confirmed by MD KOWALSKI YOCHAI ([id number]) on 02/20/2020 1:25:49 PM Procedure Note Interface, External Ris In - 02/20/2020 1:26 PM DUSTLESS OPERATOR Ventricular Rate 80 BPM Atrial Rate 80 BPM P-R Interval 180 ms QRS Duration 88 ms Q-T Interval 398 ms QTC Calculation(Bazett) 459 ms P [place] 78 degrees R [place] 49 degrees T [place] 39 degrees Normal sinus rhythm Nonspecific ST abnormality Abnormal ECG No previous ECGs available Confirmed by MD KOWALSKI YOCHAI ([id number]) on 02/20/2020 1:25:49 PM Performing Organization Address City/State/Zipcode Phone Number GE MUSE SARS-CoV2/RT-PCR ([facility] Ref Labs) (02/20/2020 7:54 AM DUSTLESS OPERATOR) SARS-COV2/RT-PCR Negative Not Detected, [facility] Negative, See [facility] external report CENTER for linked test SARS-COV-2 [facility] NANI [facility] PERFORMING LAB [facility] Specimen Other - Nasopharyngeal wall structure (b cristel structure) Narrative Performed At Negative result for this test determines that [facility] SARS-CoV-2 RNA was not present in the specimen above the Limit of Detection (LOD). However, Negative results do not preclude SARS-CoV-2 infection and should not be used as the sole basis for treatment or patient management decisions. Negative results must be combined with clinical observations, patient history, and epidemiological information. A false negative result may occur if a specimen is improperly collected, transported or handled. A false negative result should be considered if patient's recent exposures or clinical presentation indicate that COVID-19 (SARS-CoV-2) is likely and diagnostic tests for other causes of illness are negative. Re-testing should be considered in cases of suspected false negatives. The limit of detection for this assay is 100 copies/mL. This SARS CoV-2 test is a real-time RT-PCR test intended for the qualitative detection of nucleic acid from SARS-CoV-2 in a nasopharyngeal swab specimen collected from individuals suspected of COVID-19 by their healthcare provider. This test has not been Food and Drug Administration (FDA) cleared or approved. This is a modified version of an approved Emergency Use Authorization (EUA) and is in the process of review by the FDA. Once authorized by the FDA, the issued EUA will be effective until the declaration that circumstances exist justifying the authorization of the emergency use of in vitro diagnostic tests for detection and/or diagnosis of COVID-19 is terminated under Section 564(b)(2) of the Act or the EUA is revoked under Section 564(g) of the Act. Testing was performed using the Qureshi SARS-CoV-2 assay. Fact Sheet for Healthcare Providers: https://www.AlloCure.GKN - GloboKasNet/chely/VK_GRME-MeC-2 _HCP_Fact_Sheet_51-471359.pdf Fact Sheet for Healthcare Patients: https://www.PeeplePass/chely/FC_RURV-NbP-7 _Patient_Fact_Sheet_EN_51-852838G1.pdf Performing Laboratory: [place] [address] Performing Organization Address City/State/[place] [address] CENTER CBC with platelet count + automated diff (02/15/2020 12:14 PM DUSTLESS OPERATOR) Pathologist Sig nature WBC 8.5 3.5 - 10.5 [facility] K/L [facility] RBC 3.82 (L) 4.63 - 6.08 [facility] M/L [facility] Hemoglobin 12.5 (L) 13.7 - 17.5 [facility] GM/DL [facility] Hematocrit 41.5 40.1 - 51.0 % [facility] MCV 108.6 (H) 79.0 - 92.2 fL [facility] MCH 32.7 (H) 25.7 - 32.2 pg [facility] MCHC 30.1 (L) 32.3 - 36.5 [facility] GM/DL [facility] RDW 14.8 (H) 11.6 - 14.4 % [facility] Platelets 207 150 - 450 K/CU [facility] MPV 9.9 9.4 - 12.4 fL [facility] nRBC 0 0 - 0 /100 WBC [facility] % Neutros 61 % [facility] % Lymphs 22 % [facility] % Monos 10 % [facility] % Eos 4 % [facility] % Baso 1 % [facility] # Neutros 5.15 1.78 - 5.38 [facility] # Lymphs 1.84 1.32 - 3.57 [facility] # Monos 0.89 (H) 0.30 - 0.82 [facility] # Eos 0.36 0.04 - 0.54 [facility] # Baso 0.08 0.01 - 0.08 [facility] Immature 2 (H) 0 - 1 % [facility] Granulocytes-Relativ [facility] e CENTER Specimen Blood Performing Organization Address City/State/Zipcode Phone Number [facility] [address] [place] [address] CENTER Prothrombin time/INR (02/15/2020 12:13 PM DUSTLESS OPERATOR) Pathologist Sig nature Protime 16.0 (H) 11.9 - 14.2 seconds [facility] INR 1.33 <=5.90 [facility] Specimen Blood Narrative Performed At Effective 08/11/2018: PT Reference Range [facility] Change New: 11.9-14.2 Previous: 11.7-14.7 RECOMMENDED COUMADIN/WARFARIN INR THERAPY RANGES STANDARD DOSE: 2.0-3.0 Includes: PROPHYLAXIS for venous thrombosis, systemic embolization; TREATMENT for venous thrombosis and/or pulmonary embolus. HIGH RISK: Target INR is 2.5-3.5 for patients wiht mechanical heart valves. Performing Organization Address City/State/Zipcode Phone Number [facility] [address] [place] [address] CENTER after 03/30/2019 Insurance Payer Benefit Plan / Subscriber ID Effective Dates Phone Addre ss Type Group MEDICARE MEDICARE A B [id number] 1999-Presen Medicare t MCR GENERIC MEDICARE [id number] 2019-Present Medigap SUPPLEMENT/ANA SUPPLEMENT [address] [place] [id number] Advance Directives For more information, please contact: [phone] Code Status Date Activated Date Inactivated Comments Full Code 02/22/2020 5:51 AM 02/23/2020 4:23 PM This code status was determined by: Patient
--- OUTSIDE RECORDS SUMMARY | 2020-03-30 00:20 | XMS REPORT | Continuity of Care Document ---
:1935 Author Organization [facility] t Address [address] [place] [address] Care Team Providers Name Role Phone Fausto Lay MD Attending Clinician [phone] ADRIENNE LAY Attending Clinician Unavailable Ovi Green DO Attending Clinician Spencer hCoe Attending Clinician Raleigh COOK Attending Clinician Unavailable Dwain Sorenson MD Attending Clinician APRIL Attending Clinician Unavailable DULCE MARIA Attending Clinician Unavailable ADILSON Attending Clinician Unavailable JYOTHI Attending Clinician Unavailable MIRELLA Attending Clinician Unavailable MARS Attending Clinician Unavailable ADRIENNE LAY Admitting Clinician Unavailable Payers Payer Name Policy Type Policy Effective Date Expiration Date Sour ce Number MEDICAREMEDICARE A [id number] 1999 BOBBY Kerr [id number] 1998- 00:00:00 - Medical PresentMedicare Center [facility] [id number] 2019 BOBBY Perera SUPPLEMENT/INDIVIDUALG 3 00:00:00 - Medical ENERIC MEDICARE Center [id number] 2019-PresentMediga p Problems Condition Condition Condition Status Onset Resolution Last Treating Co mments Source Name Details Category Date Date Treatment Clinician Date 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 BOBBY Muhammad stenosis, stenosis, 2-09 Iain s - right right 00:00: Medical Center History of History of Problem Resolve [place] sinusitis sinus[place] Phys [place] ans Asbestos Asbestos Problem Active Unive rs exposure exposure [facility] of [place] [facility] ans Abnormal Abnormal Problem Active Unive rs CT of the CT of the ity of chest chest [place] Physici ans 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 [facility] [place] [facility] Sinusitis Sinusitis Problem Active Uni vers [facility] [facility] [place] [facility] Hypertensi Hypertensi Disease Active [facility] Carotid Carotid Disease Active [facility] artery artery [facility] - occlusion occlusion [facility] Allergies, Adverse Reactions, Alerts Allergy Allergy Status Severity Reaction(s) Onset Inactive Treating Comm ents Source Name Type Date Date Clinician Meperidi Drug Active Other [facility] Hcl Allergy 8- reaction( [facility] - 00:00: s): Medical 00 Unknown - Center See comments Demerol drug Active Univers TABS allergy [facility] [place] [facility] Penicill drug Active Univers ins allergy [facility] [place] [facility] Family History Family Member Diagnosis Comments Start Date Stop Date Source Sibling Family history of [facility] [place] allergies Physicians Mother Family history of [facility] [place] cancer Phys[place] Sister Family history of [facility] [place] type 2 diabetes Physician s mellitus Sister Family history of [facility] [place] malignant neoplasm Physic ians Natural brother Stroke [facility] Natural father Emphysema [facility] Natural mother Stroke [facility] Social History Social Habit Start Date Stop Date Quantity Comments Source History of tobacco Current smoker [facility] - use [facility] Sex Assigned At [facility] Cigarettes smoked 2020-03-07 2020-03-[address] [facility] - current (pack per 00:00:00 00:00:00 [facility] Center day) - Reported Cigarette 2020-03-07 2020-03-[address] [facility] - pack-years 00:00:00 00:00:00 [facility] Tobacco use and 2020-03-07 2020-03-07 Current user [facility] - exposure 00:00:00 00:00:00 [facility] Alcohol intake 2020-03-07 2020-03-07 [facility]00 (finding) [facility] Smoking Status Start Date Stop Date Source Former smoker 2020-03-07 00:00:00 2020-03-07 00:00:00 [facility] Medications Ordered Filled Start Stop Current Ordering Indication Dosage Frequency Signature Comments Components Source Medication Medication Date Date Medication? Clinician (SIG) Name Name apixaban 2019-03 Yes 2.5mg Q.5D Take 2.[address] (Eliquis) 2-23 mg [facility] - 2.5 mg Tab 10:59: mouth 2 Medi harper tablet 33 (two) Center times daily. montelukast 2019-03 Yes 10mg QD Take [address] (SINGULAIR) 2-23 by mouth Luke s - 10 mg 10:59: nightly. Medical tablet 29 Center metoprolol 2019-03 Yes 50mg Q.5D Take [address] tartrate 2-23 by mouth 2 [facility]ukes - (LOPRESSOR) 10:59: (two) Medic al 50 MG 29 times Center tablet daily. atorvastati 2019-03 Yes 10mg QD Take [address] n (LIPITOR) 2-23 by mouth Luke s - 10 MG 10:59: daily. Medical tablet 29 Center sulfaSALAzi 2019-03 Yes 500mg Take [address] ne 2-23 mg by [facility] - (AZULFIDINE 10:59: mouth 3 Med ical ) 500 mg 29 (three) Center tablet times daily as needed. folic acid 2019-03 Yes 1mg QD Take [address] (FOLVITE) 1 2-23 by mouth Luke s - MG tablet 10:59: daily. [facility] JOS 2 QD TAKE 2 Uni vers 186 MG Oral 186 MG Oral 1-15 OSTROSKY CAPSULE ity of Capsule Capsule 00:00: M.D. DAILY [place] Physici ans Spiriva Spiriva 2016-03 Yes IVETH QD INHALE 2 Uni vers Respimat Respimat 2-21 العراقي INHALATION ity of 1.25 1.25 00:00: M.D. S BY MOUTH [place] MCG/ACT MCG/ACT 00 DAILY Physici Inhalation Inhalation ans Aerosol Aerosol Solution Solution [facility] Yes JOS 2 QD TAKE 2 Uni vers 186 MG Oral 186 MG Oral 7-17 OSTROSKY CAPSULE ity of Capsule Capsule 00:00: M.D. DAILY [place] 00 Physici ans Voriconazol Voriconazol Yes FAUSTO Q12H TAKE 1 Univers e 200 MG e 200 MG 2-27 ERICSSON TABLET i ty of Oral Tablet Oral Tablet 00:00: M.D. EVERY 12 [place] 00 HOURS Physici DAILY. ans Ondansetron Ondansetron Yes FAUSTO 1 Q0.3333D TAKE 1 Univers HCl - [...] 10 MG Oral 10 MG Oral 1-02 MARS M.D. tabs for 1 ity of Tablet [...] 40 MG Oral ity of Capsule Capsule [place] Delayed Delayed Physici Release Release ans Bystolic 10 Bystolic 10 Yes R.N. U nivers MG Oral MG Oral ity of Tablet Tablet [place] Physici ans Vital Signs Vital Name Observation Time Observation Value Comments Source Systolic blood 2020-03-07 133 mm[Hg] [facility] - pressure 10:54:00 [facility] Diastolic blood 2020-03-07 68 mm[Hg] [facility] - pressure 10:54:00 [facility] Heart rate 2020-03-07 89 /min [facility] - 10:54:00 [facility] Body temperature 2020-03-07 37 Shante [facility] - 10:54:00 [facility] Respiratory rate 2020-03-07 18 /min [facility] - 10:54:00 [facility] Body height 2020-03-[address] [facility] - 10:54:00 [facility] Body weight 2020-03-[address] [facility] - 10:54:00 [facility] BMI 2020-03-07 27.41 kg/m2 [facility] - 10:54:00 [facility] Oxygen saturation 2020-03-07 98 /min room air [facility] St Chuck es - in Arterial blood 10:54:00 Medical nter by Pulse oximetry BP Systolic 2018-06-29 150 mm[Hg] Location: [facility] :29:00 Position: [place] Physician s Sitting BP Diastolic 2018-06-29 79 mm[Hg] Location: [facility] :29:00 Position: [place] Physician s Sitting Height 2018-06-29 70 [in_us] University of 11:29:00 [place] Physician s Weight 2018-06-29 163 [lb_av] University of 11:29:00 [place] Physician s Body Mass Index 2018-06-29 23.39 kg/m2 University o f Calculated 11:29:00 [place] Physician s Heart Rate 2018-06-29 64 /min University 11:29:00 [place] Phys[place] s Respiration Rate 2018-06-29 18 /min University of 11:29:00 [place] Physician s O2 SAT 2018-06-29 98 % Source: [facility] 11:29:00 [place] Physician s BP Systolic 2017-07-14 152 mm[Hg] University 08:27:00 [place] Physician s BP Diastolic 2017-07-14 78 mm[Hg] [facility] 08:27:00 [place] Physician s Height 2017-07-14 70 [in_us] University of 08:27:00 [place] Physician s Weight 2017-07-14 156.375 [lb_av] University o f 08:27:00 [place] Physician s Body Mass Index 2017-07-14 22.44 kg/m2 University o f Calculated 08:27:00 [place] Physician s Temperature 2017-07-14 97.1 [degF] Method: Oral University of 08:27:00 [place] Physician s Heart Rate 2017-07-14 65 /min University 08:27:00 [place] Phys[facility] s Respiration Rate 2017-07-14 18 /min University of 08:27:00 [place] Physician s O2 SAT 2017-07-14 100 % Source: [facility] 08:27:00 [place] Physician s BP Systolic 2017-05-18 146 mm[Hg] University 08:33:00 [place] Physician s BP Diastolic 2017-05-18 81 mm[Hg] University 08:33:00 [place] Physician s Height 2017-05-18 70 [in_us] University of 08:33:00 [place] Physician s Weight 2017-05-18 154 [lb_av] University 08:33:00 [place] Physician s Body Mass Index 2017-05-18 22.1 kg/m2 University o f Calculated 08:33:00 [place] Physician s Heart Rate 2017-05-18 56 /min University of 08:33:00 [place] Physician s BP Systolic 2017-04-30 173 mm[Hg] University 13:21:00 [place] Physician s BP Diastolic 2017-04-30 [...] Physician s Respiration Rate 2017-03-05 18 /min [place] of 14:35:00 [place] Physician s O2 SAT 2017-03-05 100 % Source: [facility] 14:35:00 [place] Physician s BP Systolic 2017-02-02 161 mm[Hg] University of 11:27: [place] Physician s BP Diastolic 2017-02-02 72 mm[Hg] [facility] 11:: [place] Physician s Height 2017-02-02 70 [in_us] University of :: [place] Physician s Weight 2017-02-02 164.5 [lb_av] [facility] :: [place] Physician s Body Mass Index 2017-02-02 23.6 kg/m2 University o f Calculated 11:27:00 [place] Physician s Temperature 2017-02-02 97.8 [degF] [facility] 11::00 [place] Physician s Heart Rate 2017-02-02 64 /min University 11:27:00 [place] Physician s Respiration Rate 2017-02-02 18 /min [facility] 11:27:00 [place] Physician s O2 SAT 2017-02-02 100 % Source: [facility] 11:27: [place] Physician s Procedures Procedure Date / Time Performing Clinician Source Performed CBC (HEMOGRAM ONLY) 2020-02-23 04:19:00 Mihir Hinton I [facility] BASIC METABOLIC PANEL 2020-02-23 04:19:[address] [facility] (7) [facility] MAGNESIUM 2020-02-23 04:19:00 [facility] TISSUE EXAM 2020-02-22 09:24:00 Fausto Lay [facility] ENDARTERECTOMY,CAROTID 2020-02-22 07:29:[address] [facility] TYPE AND SCREEN, 2020-02-22 06:34:00 Fausto Lay [facility] es - AUTOMATED [facility] POCT-GLUCOSE METER 2020-02-22 05:50:00 Fausto Lay [facility] ECG 12-LEAD 2020-02-20 07:59:23 Unknown, Hl7 Doctor [facility] SARS-COV2/RT-PCR (HS & 2020-02-20 07:54:00 [address] [facility] - REF LABS) [facility] BASIC METABOLIC PANEL 2020-02-15 12:14:00 Fausto Lay [facility] - (7) [facility] TYPE AND SCREEN, 2020-02-15 12:14:00 Fausto Lay CHIk es - AUTOMATED [facility] CBC W/PLT COUNT & AUTO 2020-02-15 12:14:00 [facility] PROTHROMBIN TIME/INR 2020-02-15 12:13:00 Fausto Lay [facility] [QLH] CMP W/EGFR 2018-06-29 00:00:00 [facility] Physicians [QLH] SED RATE BY 2018-06-29 00:00:00 [facility] MODIFIED [facility] Physicians [QLH] C-REACTIVE PROTEIN 2018-06-29 00:00:00 [facility] Physicians [QLH] CBC (INCLUDES 2017-07-14 00:00:00 [facility] DIFF/PLT) Physicians [QLH] CMP W/EGFR 2017-07-14 00:00:00 [facility] Physicians [QLH] SED RATE BY 2017-07-14 00:00:00 [facility] MODIFIED [facility] Physicians [QLH] C-REACTIVE PROTEIN 2017-07-14 00:00:00 Uni [facility] Physicians MRI Brain w/wo contrast 2017-07-14 00:00:00 [facility] [id number] Chest wo contrast 2017-04-30 00:00:00 [facility] [id number] Physicians [L] GI Profile, Stool, 2017-04-23 00:00:00 [facility] PCR Physicians [QLH] CMP W/EGFR 2017-04-23 00:00:00 [facility] Physicians [QLH] CBC (INCLUDES 2017-04-23 00:00:00 [facility] DIFF/PLT) Physicians [QLH] SED RATE BY 2017-03-30 00:00:00 [facility] MODIFIED [facility] Physicians [[facility]] HEPATIC FUNCTION 2017-03-30 00:00[facility] [QL] SED RATE BY 2017-02-02 00:00:00 [facility] MODIFIED [facility] Physicians [QL] C-REACTIVE PROTEIN 2017-02-02 00:00:00 [facility]] CBC (INCLUDES 2017-02-02 00:00:00 [facility] DIFF/PLT) Physicians [QLH] CBC (INCLUDES 2016-12-29 00:00:00 [facility] DIFF/PLT) Physicians [QL] COMPREHENSIVE 2016-12-29 00:00:00 [facility] METABOLIC PANEL W/O eGFR Physici ans MRI Brain w/wo contrast 2016-12-29 00:00:00 [facility] [address] Physicians History of Cataract [place] [facility] [place] Surgery Physicians History of Nasal [facility] septoplasty Physicians History of Sinus surgery [facility] Physicians Plan of Care Planned Activity Planned Date Details Comments Source Future Scheduled 2020-03-[address] [facility] - Test 00:00:00 (12+) [code = [facility] DEPRESSION SCREENING (12+)] Future Scheduled 2019-11-[address] [facility] - Test 00:00:00 (#1) [code = [facility] INFLUENZA VACCINE (#1)] Diagnostic Test 2017-08-28 CT Chest wo contrast [facility] Pending 00:00:00 [id number] [code = 94440] Physici ans Diagnostic Test 2017-08-28 CT Chest wo contrast [facility] Pending 00:00:00 [id number] [code = 32800] Physici ans Diagnostic Test 2017-08-28 CT Chest wo contrast [facility] Pending 00:00:00 [id number] [code = 65112] Physici ans Future Scheduled 2000-02-[address] [facility] - Test 00:00:00 WELLNESS (YEAR 2 or Medical Center FIRST YEAR if no IPPE) [code = MEDICARE ANNUAL WELLNESS (YEAR 2 or FIRST YEAR if no IPPE)] Future Scheduled 1999 PNEUMOCOCCAL 65+ YRS [facility] - Test 00:00:00 (1 of 1 - Medical Center [id number] PCV13) [code = PNEUMOCOCCAL 65+ YRS (1 of 1 - [id number] PCV13)] Encounters Start End Encounter Admission Attending Care Care Encounter Source Date/Time Date/Time Type Type Clinicians Facility Department ID 2018-11-08 2018-11-09 Emergency Yas [facility] [id number] 22:38:50 00:51:00 Vale Martinez [id number] [place] [id number] [place] [id number] 2018-06-29 2018-06-29 AppointLENNOX Gómez Infectious 51 [id number] Univers 11:00:00 11:00:00 t; Nita AGRUELLO [facility] [place] CHEN M.D. Physi ci ans 2017-07-14 2017-07-14 AppointLENNOX G[facility]mez Infectious 41 [id number] Univers 08:30:00 08:30:00 t; Nita ARGUELLO [facility] [place] CHEN M.D. Physi ci ans 2017-05-18 2017-05-18 AppointLENNOX Gómez Infectious 38 [id number] Univers 08:30:00 08:30:00 t; Nita ARGUELLO [facility] [place] CHEN M.D. Physi ci ans 2017-04-30 2017-04-30 AppointLENNOX Hicks [facility] & [id number] Univers 13:00:00 13:00:00 t; IVETH العراقي M.D. Sleep [facility] [place] LAZARO [place] Physici ans 2017-04-27 2017-04-27 AppointLENNOX Gómez Infectious 39 [id number] Univers 10:30:00 10:30:00 t; Nita ARGUELLO [facility] [place] CHEN M.D. Physi ci ans 2017-03-30 2017-03-30 LENNOX [place] Infectious 37 [id number] Univers 10:30:00 10:30:00 t; Nita ARGUELLO [facility] [place] CHEN M.D. Physi ci ans 2017-03-05 2017-03-05 AppointLENNOX [facility] & 372 [id number] Univers 14:00:00 14:00:00 t; IVETH العراقي M.D. Sleep ity deny LAZARO M.D. [place] Physici ans 2017-02-02 2017-02-02 Appointmen APRIL [facility] Infectious 35 [id number] Univers 10:30:00 10:30:00 t; Nita ARGUELLO Diseases [place] ARGUELLO Physi ci ans 2016-12-29 2016-12-29 Appointmen ROSSMARQUIS, [facility] UTP [id number] Univers 10:30:00 10:30:00 t; [place] Nita ARGUELLO Physi ci ans 2016-09-29 2016-09-29 [facility] [id number] Univers 10:30:00 10:30:00 t; [place] Nita ARGUELLO Physi ci ans 2016-07-21 2016-07-21 [facility] ROSSMARQUIS, [facility] UTP [id number] Univers 08:30:00 08:30:00 t; [place] Nita ARGUELLO Physi ci ans 2016-07-14 2016-07-14 [facility] [id number] Univers 10:40:00 10:40:00 t; celestina KAUFMAN M.D. [place] Kenisha KAUFMAN M.D. ans 2016-05-12 2016-05-12 [facility] ADILSON, [facility] UTP [id number] Univers 08:40:00 08:40:00 t; celestina KAUFMAN M.D. [place] Kenisha KAUFMAN M.D. ans 2016-02-13 2016-02-13 Appointmen JYOTHI, [facility] UTP [id number] Univers 13:00:00 13:00:00 t; celestina AVERY M.D., LALITHA, Physi ci M.D. ans 2016-02-06 2016-02-06 Appointmen MIRELLA [facility] UTP [id number] Univers 13:15:00 13:15:00 t; , celestina barclay APOSTOLIDO [address] L[address] M.D. Physici EFFROSYNI, ans M.D. 2016-01-24 2016-01-24 Appointmen MARS LENNOX [facility] [id number] Univers 14:00:00 14:00:00 t; MERRY CREWS ity o f WILLIAM, M.D. [facility] 2016-01-08 2016-01-08 Appointmen MARS LENNOX [facility] [id number] Univers 14:00:00 14:00:00 t; MERRY CREWS ity o f WILLIAM, M.D. [facility] ans 2015-12-27 2015-12-27 [facility] MARS LENNOX [facility] [id number] Univers 14:15:00 14:15:00 t; MERRY CREWS ity o f WILLIAM, M.D. [place] Varun Physicthony ans Results Test Description Test Time Test Comments Results Result Comments Source Tissue Exam 2020-02-24 19:08:00 Test Item Value Reference Range Interpretation Comme nts Case Report (test code = 104) Surgical Pathology Report Case: [id number] Authorizing Provider: Fausto Lay, Collected: 02/22/2020 09:24 AM Ordering Location: [facility] Received: 02/22/2020 10:31 AM PERIOPERATIVE SERVICES Pathologist: Angelo Valdez MD Specimen: Plaque, RIGHT CAROTID PLAQUE DIAGNOSIS (test code = 3220) m7ejfKUwYAKed6niJWHqlASrSgHwUcDmDoYzTs pc dWMxIHtccnRmMVxlcGljOTIwMFxhbnNpXHNwbHRw C8NaeytfVXhgSR6wKC4xiFxsgLXloZBfWXZnLvGt p3ixy654qPXkg9qlDORGylwzxUb4kDjwP16zh9S8 OzgoQ56yoIZqMMxfhGMoggfiwvQfIQREYXNMTAwl SlkCQSGpH7BZW1EFNZunDF3VJBWQIMGES3CKFSu3 RRYdayOXBEjYUOXJMzEQIUqFRu3KD8xOTz4SFZEd FGpNWFYJBDsuLXV8u4wufPPwWSWvwYEwGUDwXNst znCmBAAhIkfssobdLJVtPRY4dkRyQTUgGQqxJZKz UCblXe4azDKniPprFxOkRIWvb0zwveNCoqhfwAh6 c0isZUErRzU6gZEhUKtaZ7rkpfYkyZYqZIWyTIo5 fE03OAHweB0sqFPsODdlulDuIcI8THppWNMkOkT1 PCKxoBFjHCTiB5lvWFHeNXvdMEGkMChpaEGgQKT6 yHjca6M3xGOavEIcvMipUmTwMdMqRbEOj6IpTEb0 yKxnC1JrHWTjJxB0hVUfIFYeHBrxYQJdFISgrmB5 hU29OVsowzH2gWMwv0Oid86ih943oQ4qpWXsZMO9 ABHxCBPpxULvQCWgNQO8JDUcvHTrG6fnLIIiUM7s dpcjKLrkGEdcJAAemFT7OKZqbJOwG6KsRKRrXWsi FXIpugy2LjBoUg8anNMjkEbgNEono2hji1zxfIOf Pvc3GXBxOaOcUxhmUXumi2Jrb8rbCDOmxn0mSLS2 hPTsdMqah8T2wDNuJXQjlNZuLAHwOM7hePZzNEPn wG8ssdylVDBqKfZtdapyXWVyuGcpgmSkRy5wfTvb YKE9XMrrS5agbC0rWdO0GExqU5ybiS7oMXa5SQhm IBAfcVF0rnI3MNNrcDYoY4WleJ5jRVFiIE3hdnw5 m5nnJAU5GAkkQQKrAjT1fpK6NXOldNMiOLHbuQdp HBkiv882OCP1TxAlRMIkm8GiX1LuxPabU18mqUao R85tDEHrgLspbF4xeNgvcI9zShOqKgWiIHcusWbh DO0zHTHqX9xyhNJhMJSoPKBbI2zmOxKvuQ2uaIuw XJzwjvOjENEhXbq5BLJagQBkGVOqZap0HDPiSQZf U75cnzqlHFX0sW5ul7sto2HrPPprFRO9AIEyh99h KJrebsB8TLylIl5iLKRmYPs4OGjjFSH3zK== CPT Code(s) (test code = 3357) h7jaeRSqVAAwsDE3HrGdTXNti1xle8WnvXFj cGFy YIcwkOWwcwWdvc55gKZ0dY27ZV9lVFIqTnS6AULt nbG4Fbb7HLOsFKKgeYWfZ207n5dlv9ddboOebKQ6 yKwcEVWvMMXzTErdPDAxRnZiCLwyYSJ5LZa4UpYh XHBhcn0= CLINICAL HISTORY (test code = 3356) p1rwxVUvZXGsxNH2MaAvPZJbk5ssv6Q sdHBncGFy FIziwSGcwgFqox05vYN6hO03QU4tIFJrKwU9CPHg rtX6Str3VIYgYANcrRHbJ520g8mxg0vkmhQylHR6 tZmxZTJnBQBlPCxpTDBrPaWpQ1Msr0EzJOXehXVx e1YmvuyupbpefSBkJOKltt7= SPECIMEN SOURCE (test code = 3377) i7kuxLOjXDXvkMR4YhEaYSUrl0vny0Eb dHBncGFy AWmvaHVuloDrsb79tFI0oE78JH2cEYMsEoD1HSIz wpY3Vmn4ENCzOONqcIDwJ939s7eex5vyabBcfLA7 fVxwYXJkXHBsYWluXGZzMjAgUGxhcXVlXHBhcn0= GROSS DESCRIPTION (test code = 3366) i7faeOPdSZIwfWWdLtCbXGAsRAEgx2 lcZGVmbGFu [file] ZXMsIFBBLCBIVCAoQVNDUClccGFyfQ== MICROSCOPIC DESCRIPTION (test code = d7vmjANlIPPneGN3XdRmTZYhn5jbm8 BsdHBncGFy 3371) NVujdDRzacSqsh91iFH9rX39HR5lKXBjBgR7UZOj udW5Bhk0RPOuUKOuyYAaU672p4rio2cljaQqgMF2 fIvzCHBgBUYeVQahMCIzMlGkHTAgEb5vbWPxTEMh cn0= [facility] [id number] 19:08:00Surgical Pathology Report Case: [id number] Authorizing Provider: Fausto Lay, Collected: 02/22/2020 09:24 AM OrderingLocation: [facility] Received: 02/22/2020 10:31 AM PERIOPERATIVE SERVICES Pathologist: Angelo Valdez MD Specimen: Plaque, RIGHT CAROTID PLAQUE ARTERY, RIGHT CAROTID, ENDARTERECTOMY:CALCIFIC ATHEROSCLEROTIC PLAQUE Signing Pathologist Direct Phone Line: [phone] signed by Angelo Valdez MD on 02/24/2020 at 7:08 [id number]; [id number] stenosis, right PlaqueReceived in formalin labeled the patient's name, accession number and "right carotidplaque" is a 3.4 cm in length by 0.5 cm in diameter raymundo-yellow tubular piece of focally calcified plaque. Retail Warehouse Supervisor sections are submitted in A1 following decalcification.CHRISTINA Ross, ( [facility])PerformedBasic Metabolic [id number] 06:51:00 Test Item Value Reference Range Interpretation Comments Sodium (test code = 139 meq/L 064-728 7568-2) Potassium (test code = 5.0 meq/L 3.5-5.1 2823-3) Chloride (test code = 106 meq/L 98-107 2075-0) CO2 (test code = 23 meq/L 22-29 2028-9) BUN (test code = 27 mg/dL 7-21 H 3094-0) Creatinine (test code 1.48 mg/dL 0.57-1.25 H = 2160-0) Glucose (test code = 119 mg/dL 70-105 H 2345-7) Calcium (test code = 8.8 mg/dL 8.4-10.2 12484-8) EGFR (test code = 45 mL/min/1.73 [place] [address]-6) NOT ACCURATE CREATININE CLEARANCE IN PREDICTING GLOMERULAR FILTRATION RATE . ESTIMATED GFR I S NOT APPLICABLE FOR DIALYSIS PATIENTS. JUAN J (test code = JUAN J) Analyst Programmer ID - KYLIE M Lab Interpretation Abnormal (test code = 71387-8) [facility]51[facility]00 Test Item Value Reference Range Interpretation Comments Magnesium (test code = 2.1 mg/dL 1.6-2.6 33078-6) JUAN J (test code = JUAN J) Analyst Programmer ID - KYLIE M Lab Interpretation (test Normal code = 66407-5) [facility]OLIC [id number] 06:51:00 Test Item Value Reference Range Interpretation Comments SODIUM (BEAKER) 139 meq/L 136-145 (test code = 381) POTASSIUM (BEAKER) 5.0 meq/L 3.5-5.1 (test code = 379) CHLORIDE (BEAKER) 106 meq/L 98-107 (test code = 382) CO2 (BEAKER) (test 23 meq/L 22-29 code = 355) BLOOD UREA NITROGEN 27 mg/dL 7-21 H (BEAKER) (test code = 354) CREATININE (BEAKER) 1.48 mg/dL 0.57-1.25 H (test code = 358) GLUCOSE RANDOM 119 mg/dL 70-105 H (BEAKER) (test code = 652) CALCIUM (BEAKER) 8.8 mg/dL 8.4-10.2 (test code = 697) EGFR (BEAKER) (test 45 mL/min/1.73 ESTIMA RAVI GFR IS code = 1092) sq m NOT ACCURATE CREATININE CLEARANCE IN PREDICTING GLOMERULAR FILTRATION RATE . ESTIMATED GFR I S NOT APPLICABLE FOR DIALYSIS PATIEN TS. Analyst Programmer ID - KYLIE [id number] 06:51:00 Test Item Value Reference Range Interpretation Comments MAGNESIUM (BEAKER) (test code = 2.1 mg/dL 1.6-2.6 627) Analyst Programmer ID - KYLIE [facility] (Hemogram only)2020-02-23 06:12:00 Test Item Value Reference Range Interpretation Comments WBC (test code = 6690-2) 11.3 3.5- 10.5 K/L H RBC (test code = 789-8) 3.10 4.63- 6.08 M/L L MCHC (test code = 786-4) 30.6 32.3- 36.5 GM/DL L Hematocrit (test code = 4544-3) 33.7 % 40.1-51 L MCV (test code = 787-2) 108.7 fL 79-92.2 H MCH (test code = 785-6) 33.2 pg 25.7-32.2 H RDW (test code = 788-0) 14.6 % 11.6-14.4 H Platelets (test code = 777-3) 160 150- 450 K/CU MM MPV (test code = 83333-0) 10.0 fL 9.4-12.4 nRBC (test code = 413) 0 0- 0 /100 WBC Lab Interpretation (test code = Abnormal 15113-0) [facility] (HEMOGRAM ONLY)2020-02-23 06:12:00 Test Item Value Reference Range Interpretation Comments WHITE BLOOD CELL COUNT (BEAKER) 11.3 K/ L 3.5-10.5 H (test code = 775) RED BLOOD CELL COUNT (BEAKER) 3.10 M/ L 4.63-6.08 L (test code = 761) HEMOGLOBIN (BEAKER) (test code = 10.3 GM/DL 13.7-17.5 L 410) HEMATOCRIT (BEAKER) (test code = 33.7 % 40.1-51.0 L 411) MEAN CORPUSCULAR VOLUME (BEAKER) 108.7 fL 79.0-92.2 H (test code = 753) MEAN CORPUSCULAR HEMOGLOBIN 33.2 pg 25.7-32.2 H (BEAKER) (test code = 751) MEAN CORPUSCULAR HEMOGLOBIN CONC 30.6 GM/DL 32.3-36.5 L (BEAKER) (test code = 752) RED CELL DISTRIBUTION WIDTH 14.6 % 11.6-14.4 H (BEAKER) (test code = 412) PLATELET COUNT (BEAKER) (test 160 K/CU MM 150-450 code = 756) MEAN PLATELET VOLUME (BEAKER) 10.0 fL 9.4-12.4 (test code = 754) NUCLEATED RED BLOOD CELLS 0 /100 WBC 0-0 (BEAKER) (test code = 413) Type and screen, [id number] 07:27:00 Test Item Value Reference Range Interpretation Comments ABO/RH AUTOMATED (BEAKER) (test O POSITIVE code = 2260) Ab Scrn (test code = 890-4) NEGATIVE [facility] [id number] 06:03:00 Test Item Value Reference Range Interpretation Comments POC-Glucose Meter (test 102 mg/dL 70-110 : TE STED AT [facility] code = 1538) [address] [place], [address]: Analyst Programmer/Techni karen ID = [id number] for BEKA RIVERA AL Lab Interpretation (test Normal code = 69803-3) [facility] [id number] 06:03:00 Test Item Value Reference Range Interpretation Comments POC-GLUCOSE METER 102 mg/dL 70-110 : TESTED Bryn Burnette [facility] [address] (FOXAKER) (test code KATHY [facility], = 1538) [address]: Analyst Programmer/Techni karen ID = [id number] for JORD AN, LACRYSTAL SARS-CoV2/RT-PCR ([facility])2020-02-20 22:57:00 Test Item Value Reference Range Interpretation Comments SARS-COV2/RT-PCR Negative Not Detected, (test code = Negative, See 54131-7) external report for linked test SARS-COV-2 [facility] NANI PERFORMING LAB (test code = 60306-9) JUAN J (test code = Negative result for this JUAN J) test determines that SARS-CoV-2 RNA was not present in the [...] Qureshi SARS-CoV-2 assay. Fact Sheet for Healthcare Providers:https://www.erlinda daniel.qureshi/chely/RT_SA TD-IxG-5_IME_Dnwo_Zkxjj_ 51-332603.pdf Fact Sheet for Healthcare Patients:https://www.morteza golden.qureshi/chely/RT_SAR V-ChH-1_Npjkdhx_Oupm_Fnx et_EN_51-893349M4.pdf Performing Laboratory:[facility] [place] [address] [facility] ([facility])2020-02-20 22:57:00 Test Item Value Reference Range Interpretation Comments SARS-COV2/RT-PCR (test Negative Not Detected, Negative, code = 7764942) See external report for linked test SARS-COV-[address] [facility] NANI (test code = 7728661) Negative result for this test determines that SARS-CoV-2 RNA was not present in the specimen above the Limit of Detection (LOD). However, Negative results do not preclude SARS-CoV-2 infection and should not be used as the sole basis for treatment or patient management decisions. Negative results mustbe combined with clinical observations, patient history, and epidemiological information. A false negative result may occur if a specimen is improperly collected, transported or handled. A false negative result should be considered if patient's recent exposures or clinical presentation indicate that COVID-19 (SARS-CoV-2) is likely and diagnostic tests for other causes of illness are negative. Re-testing should be considered in cases of suspected false negatives.The limit of detection for this assay is 100 copies/mL.This SARS CoV-2 test is a real-time RT-PCR test intended for the qualitative detection of nucleic acid from SARS-CoV-2 in a nasopharyngeal swab specimen collected from individuals susp ected of COVID-19 by their healthcare provider.This test has not been Food and Drug [...] is revoked under Section 564(g) of the Act.Testing was performed using the Qrueshi SARS-CoV-2 assay.Fact Sheet for Healthcare Providers:https://www.DataCentred.qureshi/chely/ MK_ZHBC-GbA-7_XWF_Zqra_Orhmh_10-852537.pdfFact Sheet for Healthcare Patients:https://www.DataCentred.[employer] justin/chely/KX_YFDM-EuZ-0_Kvbivcm_Wicd_Onssi_UO_31-113670G7.pdfPerforming Laboratory:[facility] [place], [place] [address]XJD 12 [id number] 13:25:55Interface, External Ris In - 02/20/2020 1:26 PM CSTVentricular Rate 80 BPMAtrial Rate 80 BPMP-R Interval 180 msQRS Duration 88 msQ-T Interval 398 msQTC Calculation(Bazett) 459 msP Cooper 78 degreesR Cooper 49 degreesT Cooper [address] abnormalityAbnormal ECGNo previous ECGs availableConfirmed by MD KOWALSKI YOCHAI ([id number]) on 02/20/2020 1:25:49 [facility]OL[facility] [id number] 12:39:00 Test Item Value Reference Range Interpretation Comments SODIUM (BEAKER) 139 meq/L 136-145 (test code = 381) POTASSIUM (BEAKER) 5.0 meq/L 3.5-5.1 (test code = 379) CHLORIDE (BEAKER) 105 meq/L 98-107 (test code = 382) CO2 (BEAKER) (test 25 meq/L 22-29 code = 355) BLOOD UREA NITROGEN 29 mg/dL 7-21 H (BEAKER) (test code = 354) CREATININE (BEAKER) 1.53 mg/dL 0.57-1.25 H (test code = 358) GLUCOSE RANDOM 115 mg/dL 70-105 H (BEAKER) (test code = 652) CALCIUM (BEAKER) 9.3 mg/dL 8.4-10.2 (test code = 697) EGFR (BEAKER) (test 43 mL/min/1.73 ESTIMA RAVI GFR IS code = 1092) sq m NOT ACCURATE CREATININE CLEARANCE IN PREDICTING GLOMERULAR FILTRATION RATE . ESTIMATED GFR I S NOT APPLICABLE FOR DIALYSIS PATIEN TS. Analyst Programmer ID - AAHAMIDProthrombin time/[id number] 12:32:00 Test Item Value Reference Range Interpretation Comments Protime (test code = 16.0 11.9- 14.2 H 5902-2) seconds INR (test code = 1.33 <=5.90 6301-6) JUAN J (test code = JUAN J) Effective 08/11/2018: PT Reference Range ChangeNew: 11.9-14.2 Previous: 11.7-14.7 RECOMMENDED COUMADIN/WARFARIN INR THERAPY RANGESSTANDARD DOSE: 2.0-3.0 Includes: PROPHYLAXIS for venous thrombosis, systemic embolization; TREATMENT for venous thrombosis and/or pulmonary embolus.HIGH RISK: Target INR is 2.5-3.5 for patients wiht mechanical heart valves. Lab Interpretation Abnormal (test code = 89521-0) [facility] HospitalPROTHROMBIN TIME/[id number] 12:32:00 Test Item Value Reference Range Interpretation Comments PROTIME (BEAKER) (test code = 16.0 seconds 11.9-14.2 H 759) INR (BEAKER) (test code = 370) 1.33 <=5.90 Effective 08/11/2018: PT Reference Range ChangeNew: 11.9-14.2 Previous: 11.7- 14.7RECOMMENDED COUMADIN/WARFARIN INR THERAPY RANGESSTANDARD DOSE: 2.0-3.0 Includes: PROPHYLAXIS for venous thrombosis, systemic embolization; TREATMENT for venous thrombosis and/or pulmonary embolus.HIGH RISK: Target INR is2.5-3.5 for patients wiht mechanical heart valves.CBC with platelet count + automated [id number] 12:25:00 Test Item Value Reference Range Interpretation Comments WBC (test code = 6690-2) 8.5 3.5- 10.5 K/L RBC (test code = 789-8) 3.82 4.63- 6.08 M/L L MCHC (test code = 786-4) 30.1 32.3- 36.5 GM/DL L Hematocrit (test code = 4544-3) 41.5 % 40.1-51 MCV (test code = 787-2) 108.6 fL 79-92.2 H MCH (test code = 785-6) 32.7 pg 25.7-32.2 H RDW (test code = 788-0) 14.8 % 11.6-14.4 H Platelets (test code = 777-3) 207 150- 450 K/CU MM MPV (test code = 41901-8) 9.9 fL 9.4-12.4 nRBC (test code = 413) 0 0- 0 /100 WBC % Neutros (test code = 429) 61 % % Lymphs (test code = 430) 22 % % Monos (test code = 431) 10 % % Eos (test code = 432) 4 % % Baso (test code = 437) 1 % # Neutros (test code = 670) 5.15 1.78- 5.38 K/L # Lymphs (test code = 414) 1.84 1.32- 3.57 K/L # Monos (test code = 415) 0.89 0.30- 0.82 K/L H # Eos (test code = 416) 0.36 0.04- 0.54 K/L # Baso (test code = 417) 0.08 0.01- 0.08 K/L Immature Granulocytes-Relative 2 % 0-1 H (test code = 2801) Lab Interpretation (test code = Abnormal 28793-3) [facility] W/PLT COUNT & AUTO [id number] 12:25:00 Test Item Value Reference Range Interpretation Comments WHITE BLOOD CELL COUNT (BEAKER) 8.5 K/ L 3.5-10.5 (test code = 775) RED BLOOD CELL COUNT (BEAKER) 3.82 M/ L 4.63-6.08 L (test code = 761) HEMOGLOBIN (BEAKER) (test code = 12.5 GM/DL 13.7-17.5 L 410) HEMATOCRIT (BEAKER) (test code = 41.5 % 40.1-51.0 411) MEAN CORPUSCULAR VOLUME (BEAKER) 108.6 fL 79.0-92.2 H (test code = 753) MEAN CORPUSCULAR HEMOGLOBIN 32.7 pg 25.7-32.2 H (BEAKER) (test code = 751) MEAN CORPUSCULAR HEMOGLOBIN CONC 30.1 GM/DL 32.3-36.5 L (BEAKER) (test code = 752) RED CELL DISTRIBUTION WIDTH 14.8 % 11.6-14.4 H (BEAKER) (test code = 412) PLATELET COUNT (BEAKER) (test 207 K/CU MM 150-450 code = 756) MEAN PLATELET VOLUME (BEAKER) 9.9 fL 9.4-12.4 (test code = 754) NUCLEATED RED BLOOD CELLS 0 /100 WBC 0-0 (BEAKER) (test code = 413) NEUTROPHILS RELATIVE PERCENT 61 % (BEAKER) (test code = 429) LYMPHOCYTES RELATIVE PERCENT 22 % (BEAKER) (test code = 430) MONOCYTES RELATIVE PERCENT 10 % (BEAKER) (test code = 431) EOSINOPHILS RELATIVE PERCENT 4 % (BEAKER) (test code = 432) BASOPHILS RELATIVE PERCENT 1 % (BEAKER) (test code = 437) NEUTROPHILS ABSOLUTE COUNT 5.15 K/ L 1.78-5.38 (BEAKER) (test code = 670) LYMPHOCYTES ABSOLUTE COUNT 1.84 K/ L 1.32-3.57 (BEAKER) (test code = 414) MONOCYTES ABSOLUTE COUNT (BEAKER) 0.89 K/ L 0.30-0.82 H (test code = 415) EOSINOPHILS ABSOLUTE COUNT 0.36 K/ L 0.04-0.54 (BEAKER) (test code = 416) BASOPHILS ABSOLUTE COUNT (BEAKER) 0.08 K/ L 0.01-0.08 (test code = 417) IMMATURE GRANULOCYTES-RELATIVE 2 % 0-1 H PERCENT (BEAKER) (test code = 2801) [[facility]] CBC (INCLUDES DIFF/PLT)2018-06-29 12:25:01 Test Item Value Reference Range Interpretation Comments WBC (test code = 6690-2) 5.7 {K/CMM} 3.7-10.4 RBC; Below Low Threshold (test 3.17 {M/CMM} 4.70-6.10 code = 789-8) Hgb; Below Low Threshold (test 11.9 g/dl 14.0-18.0 code = 718-7) Hct; Below Low Threshold (test 35.9 % 42.0-54.0 code = 08439-9) MCV; Above High Threshold (test 113.2 fL 80.0-94.0 code = 787-2) MCH; Above High Threshold (test 37.6 pg 27.0-31.0 code = 785-6) MCHC (test code = 786-4) 33.2 g/dl 32.0-36.0 RDW; Above High Threshold (test 15.8 % 11.5-14.5 code = 788-0) Platelet (test code = 03649-4) 205 {K/CMM} 133-450 Mean Platelet Volume (test code 7.4 fL 7.4-10.4 = 01280-5) [facility]] CMP [id number] 12:25:01 Test Item Value Reference Range Interpretation Comments Sodium Level 142 {mEq/l} 135-145 (test code = 2951-2) Potassium Level 4.8 {mEq/l} 3.5-5.1 (test code = 2823-3) Chloride Level; 110 {mEq/l} 95-109 Above High Threshold (test code = 5-0) Carbon Dioxide 26 {mEq/l} 24-32 (test code = 8-9) AGAP (test code = 10.8 {mEq/l} 10.0-20.0 76604-4) Glucose Lvl; 113 mg/dl 70-99 Adult reference range Above High values reflect the Threshold (test clinical bin delinesof the code = 2345-7) [employer]. Creatinine Lvl; 1.50 mg/dl [...] g/dl 2.7-4.2 High Threshold (test code = 09273-9) A/G Ratio (test 0.8 0.7-1.6 code = 1759-0) Calcium Level 9.3 mg/dl 8.5-10.5 Total (test code = 47051-7) ALT (test code = 18 u/l 0-65 1743-4) AST (test code = 23 u/l 0-37 67976-6) Alk Phos; Above 145 u/l 39-136 High Threshold (test code = 1783-0) Bili Total (test 0.5 mg/dl 0.2-1.3 code = 1974-) eGFR (test code = 42 The eGFR i s calculated 10615-9) {ML/MIN/1.7} using the CKD-E PI formula. In [...] be multiplied by t he estimated BMI. [facility]] C-REACTIVE [id number] 12:25:01 Test Item Value Reference Range Interpretation Comments CRP (test code = CRP) 18.9 mg/L <=2.9 [facility]] [id number] 12:25:01 Test Item Value Reference Range Interpretation Comments Segmented Neutrophils (test code 60.7 % 45.0-75.0 = 80923-8) Monocytes (test code = 66791-9) 8.6 % 2.0-12.0 Lymphocytes (test code = 70711-8) 29.0 % 20.0-40.0 Eosinophils (test code = 49025-4) 1.3 % 0.0-4.0 Basophils (test code = 706-2) 0.4 % 0.0-1.0 Segs-Bands # (test code = 3.5 {K/CMM} 1.5-8.1 88542-9) Lymphocytes # (test code = 1.7 {K/CMM} 1.0-5.5 25763-7) Monocytes # (test code = 42520-5) 0.5 {K/CMM} 0.0-0.8 Eosinophils # (test code = 0.1 {K/CMM} 0.0-0.5 62965-6) Plt Morphology (test code = Plt Normal Normal Morphology) Macrocyte (test code = Macrocyte) 3+ None Seen [facility]] SED RATE BY MODIFIED [id number] 12:25:01 Test Item Value Reference Range Interpretation Comments Sedimentation Rate; Above High 82 {mm/hr} 0-15 Threshold (test code = 05464-7) [facility] [id number] 10:13:00 Clinical Indication: J32.9 Chronic sinusitis, unspecified [...] hemorrhage or an intra-axialmass.SL: KHARI--Read by: Ashok Sepulveda MDDictated Date/time: 07/31/17 11:09Electronically Signed by: Ashok Sepulveda MD 07/31/1810:23FINAL REPORTUnOgden [facility]] CMP [id number] 11:21:00 Test Item Value Reference Range Interpretation Comments GLUCOSE; Above 101 mg/dl 65-99 Fasting refer ence High Threshold interval For someone (test code = without known d iabetes, 1547-9) a glucose value between 100 and [...] eGFR NON- 49 > OR = 60 ECUADOREAN (test {ML/MIN/1.7} code = eGFR NON-) eGFR 57 > OR = 60 ECUADOREAN (test {ML/MIN/1.7} code = eGFR ) BUN/CREATININE [...] mg/dl 0.2-1.2 N Normal (test code = 09970-4) ALKALINE 321 u/l 40-115 PHSPHATASE (test code = ALKALINE PHSPHATASE) AST; Normal (test 19 u/l 10-35 N code = 1916-6) ALT; Normal (test 18 u/l 9-46 N code = 1742-6) [facility]] SED RATE BY MODIFIED [id number] 11:21:00 Test Item Value Reference Range Interpretation Comments SED RATE BY MODIFIED WESTERGREN (test 55 mm/h < OR = 20 code = SED RATE BY MODIFIED WESTERGREN) [facility]] CBC (INCLUDES DIFF/PLT)2017-07-21 11:21:00 Test Item Value Reference Range Interpretation Comments WHITE BLOOD CELL COUNT 5.9 {Thousand/u} 3.8-10.8 N (test code = WHITE BLOOD CELL COUNT) RED BLOOD CELL COUNT (test 3.11 {Million/uL} 4.20-5.80 code = RED BLOOD CELL COUNT) HEMOGLOBIN; Below Low 10.4 g/dl 13.2-17.1 Threshold (test code = 04708-7) HEMATOCRIT; Below Low 31.8 % 38.5-50.0 Threshold (test code = 4544-3) MCV; Above High Threshold 102.3 fL 80.0-100.0 (test code = 787-2) MCHC; Normal (test code = 32.7 g/dl 32.0-36.0 N 86953-2) RDW; Normal (test code = 13.5 % 11.0-15.0 N 788-0) PLATELET COUNT; Normal 200 {Thousand/u} 140-400 N (test code = 777-3) MPV; Normal (test code = 10.2 fL 7.5-12.5 N 73980-3) ABSOLUTE NEUTROPHILS (test 3357 {cells/uL} 4154-4211 N code = ABSOLUTE NEUTROPHILS) ABSOLUTE LYMPHOCYTES [...] Normal (test 8.6 % N code = 70952-6) EOSINOPHILS; Normal (test 1.5 % N code = 74985-7) BASOPHILS; Normal (test 0.5 % N code = 35731-4) [facility]] C-REACTIVE [id number] 11:21:00 Test Item Value Reference Range Interpretation Comments C-REACTIVE PROTEIN (test code = 45.2 mg/L <8.0 C-REACTIVE PROTEIN) [facility]iciansTob[facility] Use [id number] 19:00:00 Test Item Value Reference Range Interpretation Comments Completed (test code = Completed) DONE [facility][L] GI Profile, Stool, [id number] 09:25:00 Test Item Value Reference Range Interpretation [...] Not Detected code = Enterotoxigenic E coli) Ihlyoo-rsuce-cegosewad E coli Not Detected Not Detected (test code = Zadbac-bbykw-olqoycvky E coli) E coli O157 (test code [...] code = Not Detected Not Detected Sapovirus) [facility][QL] COMPREHENSIVE METABOLIC PANEL W/O eGFR 2017-04-24 09:25:00 Test Item Value Reference Range Interpretation Comments Glucose, Serum; Above High 113 mg/dL 65-99 Threshold (test code = 2345-7) BUN (test code = 3094-0) 21 mg/dL 8-27 Creatine, Serum (test code = 1.23 mg/dL 0.76-1.27 2160-0) eGFR If NonAfricn Am; Below Low 54 mL/min/1.7 >59 Threshold (test code = 76829-3) eGFR If Africn Am (test code = 62 mL/min/1.7 >59 30705-2) BUN/Creatine Ratio (test code = 17 10-24 3097-3) Sodium, Serum (test code = 142 mmol/L 170-814 1525-2) Potassium, Serum (test code = 3.7 mmol/L 3.5-5.2 2823-3) Chloride, Serum (test code = 103 mmol/L 96-106 2075-0) Carbon Dioxide, Total (test 24 mmol/L 18-29 code = 2028-9) Calcium, Serum (test code = 8.9 mg/dL 8.6-10.2 16259-0) Protein, Total, Serum (test 6.4 g/dL 6.0-8.5 code = 2885-2) Albumin, Serum (test code = 3.7 g/dL 3.5-4.7 1751-7) Globulin, Total (test code = 2.7 g/dL 1.5-4.5 35802-7) A/G Ratio (test code = 1759-0) 1.4 1.2-2.2 Bilirubin, Total (test code = 0.4 mg/dL 0.0-1.2 1974-2) Alkaline Phosphatase, S; Above 247 {IU/L} 39-117 High Threshold (test code = 6768-6) AST (SGOT) (test code = 1920-8) 27 {IU/L} 0-40 ALT (SGPT) (test code = 1742-6) 22 {IU/L} 0-44 [facility] [id number] 09:05:00CT CHEST WITHOUT CONTRAST:HISTORY: Dyspnea on exertion, [...] other acute CT abnormalities of the chest. [id number]--Sdev by: Poli Acuña MDDictated Date/time: 04/09/17 16:48Electronically Signed by: Poli Acuña MD 04/09/1815:56FINAL REPORTUnLakeview Hospital [[facility]] HEPATIC FUNCTION [id number] 13:43:00 Test Item Value Reference Range Interpretation Comments PROTEIN, TOTAL 7.3 g/dl 6.1-8.1 N (test code = PROTEIN, TOTAL) ALBUMIN (test code 3.9 g/dl 3.6-5.1 N = ALBUMIN) GLOBULIN (test code 3.4 {G/DL 1.9-3.7 N = GLOBULIN) CALC} ALBUMIN/GLOBULIN 1.1 {CALC} 1.0-2.5 N RATIO (test code = ALBUMIN/GLOBULIN RATIO) BILIRUBIN, DIRECT; 0.1 mg/dl < OR = 0.2 N Normal (test code = 35677-7) BILIRUBIN, 0.3 {MG/DL 0.2-1.2 N INDIRECT; Normal HARPER} (test code = 1971-) ALKALINE PHOSPHATE 223 u/l 40-115 (test code = ALKALINE PHOSPHATE) AST; Normal (test 32 u/l 10-35 N code = 1916-6) ALT; Normal (test 26 u/l 9-46 N SPECIMEN R ECEIVED code = 1742-6) DATE AND TIME : [id number] ALKALINE PHSPHATASE 223 u/l 40-115 (test code = ALKALINE PHSPHATASE) [facility]] SED RATE BY MODIFIED [id number] 13:43:00 Test Item Value Reference Range Interpretation Comments SED RATE BY MODIFIED 74 mm/h < OR = 20 SPECIME N RECEIVED DATE HAMILTON (test code AND TI ME: [id number] = SED RATE BY MODIFIED ANDREREN) [facility]iciansTobacco Use [id number] 20:00:00 Test Item Value Reference Range Interpretation Comments Completed (test code = Completed) DONE [facility]] SED RATE BY MODIFIED [id number] 11:26:00 Test Item Value Reference Range Interpretation Comments SED RATE BY MODIFIED 79 mm/h < OR = 20 SPECIME N RECEIVED DATE HAMILTON (test code AND TI ME: [id number] = SED RATE BY MODIFIED HAMILTON) [facility]] CBC (INCLUDES DIFF/PLT)2017-02-03 11:26:00 Test Item Value Reference Range Interpretation Comments WHITE BLOOD CELL 9.4 3.8-10.8 N COUNT (test code = {Thousand/u} WHITE BLOOD CELL COUNT) RED BLOOD CELL COUNT 3.16 4.20-5.80 (test code = RED {Million/uL} BLOOD CELL COUNT) HEMOGLOBIN; Below 10.5 g/dl 13.2-17.1 Low Threshold (test code = 78601-5) HEMATOCRIT; Below 31.8 % 38.5-50.0 Low Threshold (test code = 4544-3) MCV; Above High 100.6 fL 80.0-100.0 Threshold (test code = 787-2) MCHC; Normal (test 33.0 g/dl 32.0-36.0 N code = 65462-8) RDW; Normal (test 14.2 % 11.0-15.0 N code = 788-0) PLATELET COUNT; 233 140-400 N Normal (test code = {Thousand/u} 777-3) MPV; Normal (test 9.8 fL 7.5-12.5 N code = 87267-2) ABSOLUTE NEUTROPHILS 6129 4342-2722 N (test code = {cells/uL} ABSOLUTE NEUTROPHILS) [...] Normal 7.8 % N (test code = 38220-4) EOSINOPHILS; Normal 1.7 % N (test code = 89459-4) BASOPHILS; Normal 0.6 % N SPECIMEN R ECEIVED (test code = AND TIME: 67561-9) [id number] [facility]] C-REACTIVE [id number] 11:26:00 Test Item Value Reference Range Interpretation Comments C-REACTIVE PROTEIN 33.5 mg/L <8.0 SPECIMEN RECEIVED DATE (test code = AND TIME: [id number] C-REACTIVE PROTEIN) [facility]] SED RATE BY MODIFIED [id number] 14:32:00 Test Item Value Reference Range Interpretation Comments SED RATE BY MODIFIED WESTERGREN (test 58 mm/h < OR = 20 code = SED RATE BY MODIFIED WESTERGREN) [facility]] CBC (INCLUDES DIFF/PLT)2016-12-29 14:32:00 Test Item Value Reference Range Interpretation Comments WHITE BLOOD CELL COUNT 6.8 {Thousand/u} 3.8-10.8 N (test code = WHITE BLOOD CELL COUNT) RED BLOOD CELL COUNT (test 3.04 {Million/uL} 4.20-5.80 code = RED BLOOD CELL COUNT) HEMOGLOBIN; Below Low 9.7 g/dl 13.2-17.1 Threshold (test code = 30815-5) HEMATOCRIT; Below Low 29.1 % 38.5-50.0 Threshold (test code = 4544-3) MCV; Normal (test code = 95.7 fL 80.0-100.0 N 787-2) MCHC; Normal (test code = 33.3 g/dl 32.0-36.0 N 34260-4) RDW; Normal (test code = 14.2 % 11.0-15.0 N 788-0) PLATELET COUNT; Normal 224 {Thousand/u} 140-400 N (test code = 777-3) MPV; Normal (test code = 9.8 fL 7.5-12.5 N 34867-9) ABSOLUTE NEUTROPHILS (test 4005 {cells/uL} 5171-4877 N code = ABSOLUTE NEUTROPHILS) ABSOLUTE LYMPHOCYTES [...] Normal (test 8.1 % N code = 81627-8) EOSINOPHILS; Normal (test 3.2 % N code = 93567-0) BASOPHILS; Normal (test 0.7 % N code = 62061-3) [facility]
[2020-03-30] MEDS ORDERED: BENZONATATE 100 MG CAP PO ONE (01:11)
[2020-03-30] MEDS ORDERED: ALBUTEROL INHALER 60 PUFF/8 GM IH ONE (01:13)
[2020-03-30] MEDS ORDERED: predniSONE 20 MG TAB ONE (01:13)
[2020-03-30 01:47] LABS: SARS-COV-2 RT PCR NEGATIVE (NEGATIVE)
--- NOTE | 2020-03-30 01:59 | ER ---
Nurse's Notes [facility] Name: Sly Sheets Age: 85 yrs Sex: Male : 1935 Arrival Date: 03/30/2020 Time: 00:18 Bed 6 Private MD: Diagnosis: Acute bronchitis Presentation: 03/30 00:23 Onset of symptoms was March 30, 2020. Care prior to arrival: None. rv 00:23 Acuity: BRENDAN 3 rv 01:00 Chief complaint: Patient states: Reports cough and congestion. Coronavirus screen: At ea this time, the client does not indicate any symptoms associated with coronavirus-19. Ebola Screen: No symptoms or risks identified at this time. Initial Sepsis Screen: Does the patient meet any 2 criteria? No. Patient's initial sepsis screen is negative. Does the patient have a suspected source of infection? No. Patient's initial sepsis screen is negative. Risk Assessment: Do you want to hurt yourself or someone else? Patient reports no desire to harm self or others. 01:00 Method Of Arrival: Wheelchair ea Historical: - Allergies: 00:23 Demerol; rv - PMHx: 00:23 Atrial Fib; BPH; fungal meningitis; rv - PSHx: 00:23 Hernia repair; rv - Immunization history:: Adult Immunizations up to date. - Social history:: Smoking status: Patient denies any tobacco usage or history of. Screenin:25 Abuse screen: Denies threats or abuse. Denies injuries from another. Nutritional sg screening: No deficits noted. Tuberculosis screening: No symptoms or risk factors identified. Never had TB. Fall Risk None identified. Assessment: 00:25 General: Appears in no apparent distress. well groomed, well developed, well nourished, sg Behavior is calm, cooperative, appropriate for age. 00:25 Pain: Pain: Denies pain. sg 00:25 Neuro: Level of Consciousness is awake, alert, obeys commands, Oriented to person, sg place, time, Moves all extremities. Gait is steady, Speech is normal, Facial symmetry appears normal. Cardiovascular: Patient's skin is warm and dry. Chest pain is denied. Respiratory: Airway is patent Respiratory effort is even, unlabored, Respiratory pattern is regular, symmetrical, Breath sounds are clear. GI: Abdomen is round non-distended. : No signs and/or symptoms were reported regarding the genitourinary system. EENT: No signs and/or symptoms were reported regarding the EENT system. Derm: Skin is pink, warm \T\ dry. Musculoskeletal: Circulation, motion, and sensation intact. Range of motion: intact in all extremities. 00:31 Reassessment: Claudia VASQUEZ at bedside at this time. sg 02:02 Reassessment: Patient and/or family updated on plan of care and expected duration. Pain ea level reassessed. Patient is alert, oriented x 3, equal unlabored respirations, skin warm/dry/pink. Vital Signs: 00:30 BP 128 / 93; Pulse 76; Resp 20 S; Temp 97.8; Pulse Ox 96% on R/A; Weight 102.06 kg (R); sg 01:30 BP 125 / 83; Pulse 79; Resp 16; Pulse Ox 95% on R/A; sg 02:02 BP 125 / 83; Pulse 80; Resp 18; Pulse Ox 98% ; ea ED Course: 00:18 Patient arrived in ED. am2 00:22 Gelnn Saxena PA is PHCP. cp 00:22 Glenn Pate MD is Attending Physician. cp 00:23 Triage completed. rv 00:23 Arm band placed on. rv 00:25 No provider procedures requiring assistance completed. Patient did not have IV access sg during this emergency room visit. 00:52 Yonas Miles, RN is Primary Nurse. sg 00:56 XRAY Chest (1 view) In Process Unspecified. EDMS 01:00 Patient has correct armband on for positive identification. Bed in low position. Call ea light in reach. Side rails up X2. Adult w/ patient. Administered Medications: 01:02 Drug: Tessalon Perle 200 mg Route: PO; ea 02:10 Follow up: Response: No adverse reaction ea 01:02 Drug: Albuterol HFA Inhaler 2 puffs Route: Inhalation; ea 01:02 Drug: predniSONE 60 mg Route: PO; ea 02:10 Follow up: Response: No adverse reaction ea Outcome: 01:59 Discharge ordered by . cp 02:11 Patient left the ED. ea 02:14 Discharged to home via wheelchair, with family. ea 02:14 Condition: stable 02:14 Discharge instructions given to patient, Instructed on discharge instructions, follow up and referral plans. medication usage, Demonstrated understanding of instructions, follow-up care, medications, Prescriptions given X 4. Signatures: Dispatcher [employer] Yonas Patel RN RN Glenn Harvey PA PA cp Moreno, Amanda am2 Antunez, Elena RN RN Harshal Pham RN RN rv Corrections: (The following items were deleted from the chart) 01:58 00:25 General: Appears in no apparent distress. well groomed, well developed, well sg nourished, Behavior is calm, cooperative, appropriate for age, sg
--- NOTE | 2020-03-30 02:00 | EDPHYS ---
Physician Documentation [facility] Name: Sly Sheets Age: 85 yrs Sex: Male : 1935 Arrival Date: 03/30/2020 Time: 00:18 Bed 6 Private MD: ED Physician Glenn Pate HPI: 03/30 00:40 This 85 yrs old Male presents to ER via Unassigned with complaints of Cough, cp Congestion. 00:40 The patient or guardian reports cough, that is intermittent, with productive sputum. cp Onset: The symptoms/episode began/occurred yesterday. Historical: - Allergies: 00:23 Demerol; rv - PMHx: 00:23 Atrial Fib; BPH; fungal meningitis; rv - PSHx: 00:23 Hernia repair; rv - Immunization history:: Adult Immunizations up to date. - Social history:: Smoking status: Patient denies any tobacco usage or history of. ROS: 00:50 Constitutional: Negative for body aches, chills, fever, poor PO intake. cp 00:50 Eyes: Negative for injury, pain, redness, and discharge. cp 00:50 ENT: Positive for sore throat, Negative for drainage from ear(s), ear pain, difficulty swallowing, difficulty handling secretions. 00:50 Cardiovascular: Negative for chest pain. 00:50 Respiratory: Positive for cough, wheezing. 00:50 Abdomen/GI: Negative for abdominal pain, nausea, vomiting, and diarrhea. Exam: 00:55 Constitutional: The patient appears in no acute distress, alert, awake, cp non-diaphoretic, non-toxic, well developed, well nourished. 00:55 Head/Face: Normocephalic, atraumatic. cp 00:55 Eyes: Periorbital structures: appear normal, Conjunctiva: normal, no exudate, no injection, Sclera: no appreciated abnormality, Lids and lashes: appear normal, bilaterally. 00:55 ENT: External ear(s): are unremarkable, Nose: is normal, Posterior pharynx: Airway: no evidence of obstruction, patent. 00:55 Neck: ROM/movement: is normal, is supple, no meningismus, no nuchal rigidity, Lymph nodes: no appreciated lymphadenopathy. 00:55 Chest/axilla: Inspection: normal, Palpation: is normal, no crepitus, no tenderness. 00:55 Cardiovascular: Rate: normal, Rhythm: regular, Edema: is not appreciated, JVD: is not appreciated. 00:55 Respiratory: the patient does not display signs of respiratory distress, Respirations: normal, no use of accessory muscles, no retractions, labored breathing, is not present, Breath sounds: bronchial sounds, that are moderate, are heard diffusely, stridor, is not appreciated, wheezing: that is mild, is heard diffusely. 00:55 Abdomen/GI: Inspection: abdomen appears normal, Palpation: abdomen is soft and non-tender, in all quadrants. 00:55 Skin: no rash present. 00:55 Neuro: Orientation: to person, place \T\ time. Mentation: is normal. Vital Signs: 00:30 BP 128 / 93; Pulse 76; Resp 20 S; Temp 97.8; Pulse Ox 96% on R/A; Weight 102.06 kg (R); sg 01:30 BP 125 / 83; Pulse 79; Resp 16; Pulse Ox 95% on R/A; sg 02:02 BP 125 / 83; Pulse 80; Resp 18; Pulse Ox 98% ; ea MDM: 00:37 Patient medically screened. cp 00:50 Differential Diagnosis: Bronchitis Influenza Upper Respiratory Infection Pneumonia. cp 01:53 Data reviewed: vital signs, nurses notes, lab test result(s), radiologic studies, plain cp films. Test interpretation: by ED physician or midlevel provider: chest xray negative for focal pneumonia. Counseling: I had a detailed discussion with the patient and/or guardian regarding: the historical points, exam findings, and any diagnostic results supporting the discharge/admit diagnosis, lab results, radiology results, the need for outpatient follow up, a family practitioner, to return to the emergency department if symptoms worsen or persist or if there are any questions or concerns that arise at home. Response to treatment: the patient's symptoms have markedly improved after treatment, and as a result, I will discharge patient. 03/30 00:39 Order name: COVID-19 cp 03/30 00:39 Order name: Influenza Screen (a \T\ B) cp 03/30 00:39 Order name: Strep cp 03/30 00:40 Order name: Group A Streptococcus Rapid Sc; Complete Time: 01:50 EDMS 03/30 00:39 Order name: XRAY Chest (1 view) 03/30 01:46 Order name: Throat Culture EDMS 03/30 01:48 Order name: COVID-19/FLU A+B; Complete Time: 01:50 EDMS Administered Medications: 01:02 Drug: Tessalon Perle 200 mg Route: PO; ea 02:10 Follow up: Response: No adverse reaction ea 01:02 Drug: Albuterol HFA Inhaler 2 puffs Route: Inhalation; ea 01:02 Drug: predniSONE 60 mg Route: PO; ea 02:10 Follow up: Response: No adverse reaction ea Disposition: 05:44 Co-signature as Attending Physician, Glenn Pate MD I agree with the assessment and [facility] plan of care. Disposition: 03/30/20 01:59 Discharged to Home. Impression: Acute bronchitis. - Condition is Stable. - Discharge Instructions: Acute Bronchitis, Adult. - Prescriptions for Tessalon Perles 100 mg Oral Capsule - take 2 capsule by ORAL route every 8 hours As needed; 20 capsule. Albuterol Sulfate 2.5 mg /3 mL (0.083 %) Inhalation Solution for Nebulization - inhale 1 unit by NEBULIZATION route every 8 hours As needed; 1 box. Zithromax Z- Lucius 250 mg Oral Tablet - take 1 tablet by ORAL route as directed for 5 days Day 1 - take two (2) tablets one time. Day 2, 3, 4 , 5 take one (1) tablet once daily.; 6 tablet. Prednisone 20 mg Oral Tablet - take 2 tablet by ORAL route once daily for 5 days; 10 tablet. Albuterol Sulfate 90 mcg/actuation - inhale 1-2 puff by INHALATION route every 4-6 hours; 1 Inhaler. - Medication Reconciliation Form, Thank You Letter, Antibiotic Education, Prescription Opioid Use form. - Follow up: Private Physician; When: 2 - 3 days; Reason: Recheck today's complaints. - Problem is new. - Symptoms have improved. Signatures: Dispatcher [employer] Glenn Lugo MD MD cha Page, Corey, PA PA cp Antunez, Elena, RN RN Harshal Pham RN RN rv Corrections: (The following items were deleted from the chart) 01:05 00:40 CORONAVIRUS ordered. EDKY EDMS 01:05 00:40 Influenza Screen (A ordered. EDKY EDMS 02:11 01:59 03/30/2020 01:59 Discharged to Home. Impression: Acute bronchitis. Condition is ea Stable. Forms are Medication Reconciliation Form, Thank You Letter, Antibiotic Education, Prescription Opioid Use. Follow up: Private Physician; When: 2 - 3 days; Reason: Recheck today's complaints. Problem is new. Symptoms have improved. cp
[2020-03-30 02:18] VITALS: TEMP 97.8
[2020-03-30 02:20] VITALS: BP 125/83
[2020-03-30 02:21] VITALS: O2SAT 98
--- NOTE | 2020-03-30 07:57 | RAD REPORT ---
EXAM DESCRIPTION: Jassi Single View03/30/2020 12:56 am CLINICAL HISTORY: Cough COMPARISON: January 2020 FINDINGS: The lungs are hyperaerated. Calcified pleural plaques are present The lungs appear clear of acute infiltrate. The heart is normal size IMPRESSION: No acute abnormalities displayed
== END 2020-03-30 02:11 | disposition home or self-care (01) ==
LOC: ER 00:15
DX: J20.9 Acute bronchitis, unspecified (principal); Z20.822 Contact with and (suspected) exposure to COVID-19; Z88.5 Allergy status to narcotic agent
CPT/HCPCS: 87070; 87081; 0240U; 71045; 99284; J7512

== ENCOUNTER 2020-11-15 17:43 | Emergency (ER) | payer OTHER ==
--- OUTSIDE RECORDS SUMMARY | 2020-11-15 17:48 | XMS REPORT | Continuity of Care Document ---
:1935 Author Organization [facility] t Address [address] [place] [address] Care Team Providers Name Role Phone Fausto Lay MD Attending Clinician [phone] Shai COOK Attending Clinician ADRIENNE LAY Attending Clinician Unavailable Phoenix Jaramillo MD Attending Clinician Kingsley COOK, S Attending Clinician Unavailable Ovi Green DO Attending Clinician Spencer Choe Attending Clinician Raleigh COOK Attending Clinician Unavailable Yas MORAN, S Attending Clinician APRIL Attending Clinician Unavailable DULCE MARIA Attending Clinician Unavailable ADILSON Attending Clinician Unavailable JYOTHI Attending Clinician Unavailable MIRELLA Attending Clinician Unavailable MARS Attending Clinician Unavailable ADRIENNE LAY Admitting Clinician Unavailable Payers Payer Name Policy Type Policy Number Effective Date Expiration Date S ource Problems Condition Condition Condition Status Onset Resolution Last Treating Co mments Source Name Details Category Date Date Treatment Clinician Date Left Left Disease Active 2020- [facility] carotid carotid [facility]-08 [facility] artery artery 00:00: Medical stenosis stenosis 00 Center Stenosis Stenosis Disease Active 2019-03 [facility] right of right 2-09 [facility] - carotid carotid 00:00: Medical artery artery 00 Center History of History of Problem Resolve [...] Disease Active [facility] on on [facility] Carotid Carotid Disease Active [facility] artery artery [facility] - occlusion occlusion [facility] Allergies, Adverse Reactions, Alerts Allergy Allergy Status Severity Reaction(s) Onset Inactive Treating Comm ents Source Name Type Date Date Clinician Meperidi Drug Active Other [facility] ne Hcl Allergy 8- reaction( [facility] - 00:00: s): Medical 00 Unknown - Center See comments Demerol drug Active Univers TABS allergy [facility] [place] [facility] Penicill drug Active Univers ins [facility] [place] [facility] Family History Family Member Diagnosis Comments Start Date Stop Date Source Sibling Family history of [facility] [place] allergies Physicians Mother Family history of [facility] [place] cancer Physicians Sister Family history of [facility] [place] type 2 diabetes Physician s mellitus Sister Family history of [facility] malignant neoplasm Physic ians Natural brother Stroke [facility] Natural father Emphysema [facility] Natural mother Stroke [facility] Social History Social Habit Start Date Stop Date Quantity Comments Source History of tobacco [facility] Sex Assigned At [facility] Cigarettes smoked 2020-06-04 2020-06-04 [facility] current (pack per 00:00:00 00:00:00 [facility] day) - Reported Cigarette 2020-06-04 2020-06-04 [facility] Cirilo - pack-years 00:00:00 00:00:00 [facility] Tobacco use and 2020-06-04 2020-06-04 Current user [facility] Cirilo - exposure 00:00:00 00:00:00 [facility] Alcohol intake 2020-06-04 2020-06-04 Ex-drinker [facility] - 00:00:00 00:00:00 (finding) [facility] Smoking Status Start Date Stop Date Source Former smoker 2020-06-04 00:00:00 2020-06-04 00:00:00 [facility] Medications Ordered Filled Start Stop Current Ordering Indication Dosage Frequency Signature Comments Components Source Medication Medication Date Date Medication? Clinician (SIG) Name Name apixaban Yes 2.5mg Q.5D Take 2.[address] (Eliquis) 3-22 mg by [facility] - 2.5 mg Tab 11:09: mouth 2 Medi joshua tablet 50 (two) Center times daily. montelukast Yes 10mg QD Take [address] (SINGULAIR) 3-22 by mouth Luke s - 10 mg 11:09: nightly. Medical tablet 50 Center metoprolol Yes 50mg Q.5D Take [address] tartrate 3-22 by mouth 2 [facility] - (LOPRESSOR) 11:09: (two) Medic al 50 MG 50 times Center tablet daily. atorvastati Yes 10mg QD Take [address] n (LIPITOR) 3-22 by mouth Luke s - 10 MG 11:09: daily. Medical tablet 50 Center sulfaSALAzi Yes 500mg Take [address] ne 3-22 mg by [facility] - (AZULFIDINE 11:09: mouth 3 Med ical ) 500 mg 50 (three) Center tablet times daily as needed. folic acid Yes 1mg QD Take [address] (FOLVITE) 1 3-22 by mouth Luke s - MG tablet 11:09: daily. Medica l 50 Center tamsulosin Yes .4mg QD Take 1 [facility] (FLOMAX) 09 capsule [facility] - 0.4 mg Cap 00:00: (0.4 mg Medi joshua 24 hr 00 total) by Center capsule mouth daily. traMADoL No 50mg Take [address] (ULTRAM) 50 05-22 03-19 tablet (50 L ukes - mg tablet 00:00: 23:59 mg total) Me dical 00 :00 by mouth Center every 8 (eight) hours as needed for Pain for up to 10 days. Max Daily Amount: 150 mg pantoprazol Yes 40mg QD Take [address] e 1-28 by mouth [facility] - (PROTONIX) 00:00: daily. Medic al 40 MG 00 Center tablet albuterol Yes [facility] HFA 1-15 [facility] - (VENTOLIN 00:00: Medical HFA) 90 00 [place] mcg/actuati on inhaler Kaylyna Kyleremba Yes JOS 2 QD TAKE 2 Uni vers 186 MG Oral 186 MG Oral 1-15 OSTROSKY CAPSULE ity of Capsule Capsule 00:00: M.D. DAILY [place] [address] Physici ans Spiriva Spiriva 2016-03 Yes IVETH QD INHALE 2 Uni vers Respimat Respimat 2-21 العراقي INHALATION ity of 1.25 1.25 00:00: M.D. S BY MOUTH [place] MCG/ACT MCG/ACT 00 DAILY Physici Inhalation Inhalation ans Aerosol Aerosol Solution Solution Cresemba Cresemba Yes JOS 2 QD TAKE 2 Uni vers 186 MG Oral 186 MG Oral 7-17 OSTROSKY CAPSULE ity of Capsule Capsule 00:00: M.D. DAILY [place] [address] Physici ans Voriconazol Voriconazol Yes FAUSTO Q12H [...] 40 MG Oral ity of Capsule Capsule [place] Delayed Delayed Physici Release Release ans Bystolic 10 Bystolic 10 Yes R.N. U nivers MG Oral MG Oral ity of Tablet Tablet [place] Physici ans Vital Signs Vital Name Observation Time Observation Value Comments Source Systolic blood 2020-06-04 109 mm[Hg] [facility] - pressure 11:05:00 [facility] Diastolic blood 2020-06-04 58 mm[Hg] [facility] - pressure 11:05:00 [facility] Heart rate 2020-06-04 85 /min [facility] - 11:05:00 [facility] Body temperature 2020-06-[address] [facility] - 11:05:00 [facility] Respiratory rate 2020-06-04 18 /min [facility] - 11:05:00 [facility] Body height 2020-06-[address] [facility] - 11:05:00 [facility] Body weight 2020-06-[address] [facility] - 11:05: [facility] BMI 2020-06-04 26.69 kg/m2 [facility] - 11:05:00 [facility] Oxygen saturation 2020-06-04 96 /min room air BOBBY [place] [facility] - in Arterial blood 11:05:00 Medical nter by Pulse oximetry BP Systolic 2018-06-29 150 mm[Hg] Location: [facility] 11:29:00 Position: [place] Physician s Sitting BP Diastolic 2018-06-29 79 mm[Hg] Location: [facility] 11:29:00 Position: [place] Physician s Sitting Height 2018-06-29 70 [in_us] [facility] 11:29:00 [place] Physician s Weight 2018-06-29 163 [lb_av] [facility] 11:29:00 [place] Physician s Body Mass Index 2018-06-29 23.39 kg/m2 [place] o f Calculated 11:29:00 [place] [facility] Heart Rate 2018-06-29 64 /min [facility] :29:00 [place] Physician s Respiration Rate 2018-06-29 18 /min [facility] 11:29:00 [place] Physician s O2 SAT 2018-06-29 98 % Source: [facility] 11:29:00 [place] Physician s BP Systolic 2017-07-14 152 mm[Hg] University 08:27:00 [place] Physician s BP Diastolic 2017-07-14 78 mm[Hg] [facility] 08:27:00 [place] Physician s Height 2017-07-14 [...] s O2 SAT 2017-07-14 100 % Source: RA University of 08:27:00 [place] Physician s BP Systolic 2017-05-18 [...] s O2 SAT 2017-04-30 98 % Source: University of 13:21:00 [place] Physician s BP [...] s O2 SAT 2017-03-05 100 % Source: RA University of 14:35:00 [place] Physician s BP Systolic 2017-02-02 161 mm[Hg] University of 11:27:00 [place] Phys[facility] BP Diastolic 2017-02-02 72 mm[Hg] University of 11:27:00 [place] Physician s Height 2017-02-02 70 [in_us] University of 11:27:00 [place] Physician s Weight 2017-02-02 164.5 [lb_av] University of 11:27:00 [place] Physician s Body Mass Index 2017-02-02 23.6 kg/m2 University o f Calculated 11:27:00 [place] Physician s Temperature 2017-02-02 97.8 [degF] University of 11:27:00 [place] Physician [facility] Heart Rate 2017-02-02 64 /min University of 11:27:00 [place] Physician s Respiration Rate 2017-02-02 18 /min [facility] 11:27:00 [place] Physician s O2 SAT 2017-02-02 100 % Source: [facility] 11::00 [place] Physician s Procedures Procedure Date / Time Performing Clinician Source Performed CBC W/PLT COUNT & AUTO 2020-05-22 03:27:00 [facility] BASIC METABOLIC PANEL 2020-05-22 03:27:00 [facility] () [facility] POTASSIUM 2020-05-21 10:36:00 [facility] HGB/HCT (H&H) - STAT LAB 2020-05-21 09:45:00 [facility] GLUCOSE-STAT LAB 2020-05-21 09:45:00 [facility] CALCIUM, IONIZED 2020-05-21 09:45:00 [facility] POTASSIUM-STAT LAB 2020-05-21 09:45:00 [facility] TISSUE EXAM 2020-05-21 08:57:[address] [facility] XR CHEST 1 VIEW PORTABLE 2020-05-21 07:49:00 Shahram Jaramillo [facility] / BEDSIDE [facility] ENDARTERECTOMY,CAROTID 2020-05-21 07:28:00 Fausto Lay [facility] BASIC METABOLIC PANEL 2020-05-18 10:47:00 Tory Kendall [facility] () [facility] CBC W/PLT COUNT & AUTO 2020-05-18 10:47:00 Tory Kendall [facility] PROTHROMBIN TIME/INR 2020-05-18 10:47:00 Tory Kendall [facility] TYPE AND SCREEN, 2020-05-18 10:47:00 Tory Kendall [facility] es - AUTOMATED Medical Center ECG 12-LEAD 2020-05-18 10:16:43 Tory Kendall [facility] SARS-COV2/RT-PCR ([facility] & 2020-05-18 10:00:[address] [facility] (HEMOGRAM ONLY) 2020-02-23 04:19:00 Jamaal Bonnyamari B[facility] I [facility] BASIC METABOLIC PANEL 2020-02-23 04:19:00 [facility]al [facility] - (7) [facility] MAGNESIUM 2020-02-23 04:19:00 Jamaal amari [facility] TISSUE EXAM 2020-02-22 09:24:[address] [facility] ENDARTERECTOMY,CAROTID 2020-02-22 07:29:00 Rosanne [facility] TYPE AND SCREEN, 2020-02-22 06:34:00 [facility] - AUTOMATED [facility] POCT-GLUCOSE METER 2020-02-22 05:50:00 Fausto Lay [facility] L [facility] ECG 12-LEAD 2020-02-20 07:59:[address] [facility] SARS-COV2/RT-PCR ([facility] & 2020-02-20 07:54:00 Fausto Lay [facility] - REF LABS) [facility] CBC W/PLT COUNT & AUTO 2020-02-15 12:14:00 Fausto Lay [facility] - DIFFERENTIAL [facility] BASIC METABOLIC PANEL 2020-02-15 12:14:00 [facility]ust[facility] Lay [facility] - (7) [facility] TYPE AND SCREEN, 2020-02-15 12:14:00 Fausto Lay [facility] - AUTOMATED [facility] PROTHROMBIN TIME/INR 2020-02-15 12:13:00 Fausto Lay [facility] [[facility]] CMP W/EGFR 2018-06-29 00:00:[address] [facility] Physicians [[facility]] SED RATE BY 2018-06-29 00:00:[address] [facility] MODIFIED [facility] Physicians [QLH] C-REACTIVE PROTEIN 2018-06-29 00:00:00 Uni [facility] Physicians [QLH] CBC (INCLUDES 2017-07-14 00:00:[address] [facility] DIFF/PLT) Physicians [QLH] CMP W/EGFR 2017-07-14 00:[facility]00 [facility] [QLH[facility] SED RATE BY 2017-07-14 00:00:00 [facility] MODIFIED [facility] Physicians [QLH] C-REACTIVE PROTEIN 2017-07-14 00:00:00 Uni [facility] Physicians MRI Brain w/wo contrast 2017-07-14 00:00:00 Univ [facility] [id number] Chest wo contrast 2017-04-30 00:00:00 [facility] [address] Physicians [L] GI Profile, Stool, 2017-04-23 00:00:00 [facility] PCR Physicians [QLH] CMP W/EGFR 2017-04-23 00:00:00 [facility] [QLH] CBC (INCLUDES 2017-04-23 00:00:[address] [facility] DIFF/PLT) Physicians [QLH] SED RATE BY 2017-03-30 00:00:00 [facility] MOD[facility]IED [facility] Physicians [QLH] HEPATIC FUNCTION 2017-03-30 00:00:00 [facility] PANEL Physicians [QLH] SED RATE BY 2017-02-02 00:00:00 [facility] MODIFIED [facility] Physicians [QLH] C-REACTIVE PROTEIN 2017-02-02 00:00:00 [facility] Physicians [QLH] CBC (INCLUDES 2017-02-02 00:00:[address] [facility] DIFF/PLT) Physicians [QLH] CBC (INCLUDES 2016-12-29 00:00[facility] DIFF/PLT) Physicians [QL] COMPREHENSIVE 2016-12-29 00:00:00 [facility] METABOLIC PANEL W/O eGFR Physici ans MRI Brain w/wo contrast 2016-12-29 00:00:00 Univ [facility] [address] Physicians History of Cataract [facility] [place] Surgery Physicians History of Nasal [facility] septoplasty Physicians History of Sinus surgery [facility] Physicians Plan of Care Planned Activity Planned Date Details Comments Source Future Scheduled 2020-11-[address] [facility] - Test 00:00:00 (Season Ended) [code Medical Center = INFLUENZA VACCINE (Season Ended)] Diagnostic Test 2017-08-28 CT Chest wo contrast Univ [facility] Pending 00:00:00 58394 [code = 00161] Physici ans Diagnostic Test 2017-08-28 CT Chest wo contrast Univ [facility] Pending 00:00:00 36508 [code = 77525] Physici ans Diagnostic Test 2017-08-28 CT Chest wo contrast Univ [facility] Pending 00:00:00 28189 [code = 59336] Physici ans Future Scheduled 2000-02-[address] [facility] - Test 00:00:00 WELLNESS (YEAR 2 or Medical Center FIRST YEAR if no IPPE) [code = MEDICARE ANNUAL WELLNESS (YEAR 2 or FIRST YEAR if no IPPE)] Future Scheduled 1999 PNEUMOCOCCAL 65+ YRS [facility] - Test 00:00:00 (1 of 1 - Medical Center [id number]) [code = PNEUMOCOCCAL 65+ YRS (1 of 1 - [id number] PCV13)] Future Scheduled 1984 SHINGLES VACCINES ([address] [facility] - Test 00:00:00 of 2) [code = Medical Center SHINGLES VACCINES (1 of 2)] Future Scheduled 1953 DTAP/TDAP/TD VACCINES [facility] Test 00:00:00 (1 - Tdap) [code = Medical C enter DTAP/TDAP/TD VACCINES (1 - Tdap)] Encounters Start End Encounter Admission Attending Care Care Encounter Source Date/Time Date/Time Type Type Clinicians Facility Department ID 2020-06-04 2020-06-[address] [facility] [id number] 10:57:32 11:12:32 Visit [facility] 2020-05-24 2020-05-[address] [facility] [id number] 00:[facility]00 00:00:00 [facility] 2020-05-21 2020-05-[address] [facility] [id number] 05:20:00 14:31:00 Encounter [facility] 2020-05-21 2020-05-[address] [facility] [id number] 07:30:00 10:30:00 [facility] 2020-05-21 2020-05-[address] [facility] [id number] 07:48:00 09:38:00 Event Shahram [facility] 2020-05-18 2020-05-18 Office Fausto Lay [facility] [id number] 09:35:18 09:50:18 Visit Xiomara Wynn [facility] 2020-05-18 2020-05-18 [facility] [id number] 00:00:00 00:00:00 [facility] 2020-05-18 2020-05-18 Travel [facility] [id number] [facility] 00:[facility]00 00:00:00 [facility] 2020-05-17 2020-05-17 [facility] [id number] 13:20:14 23:59:[address] [facility] 2020-05-17 2020-05-17 Travel [facility] [id number] [facility] 00:[facility]:00 00:00:00 [facility] 2020-03-07 2020-03-[address] [facility] [id number] 10:49:08 10:34:07 Visit [facility] 2020-02-22 2020-02-[address] [facility] [id number] 05:30:00 14:23:00 Encounter [facility] 2020-02-23 2020-02-23 Travel [facility] [id number] [facility] 00:[facility]00 00:00:00 [facility] 2020-02-22 2020-02-[address] [facility] [id number] 08:00:00 10:15:00 [facility] 2020-02-22 2020-02-[address] [facility] [id number] 07:49:00 10:14:00 Event Kaleb Choe [facility] 2020-02-21 2020-02-21 [facility] [id number] 10:00:00 23:59:[address] [facility] 2020-02-21 2020-02-21 Travel [facility] [id number] [facility] 00:[facility]00 00:00:00 [facility] 2020-02-20 2020-02-20 Office Fausto Lay [facility] [id number] 07:21:04 07:36:04 Visit Denton Storey [facility] 2020-02-20 2020-02-20 [facility] [id number] 00:00:00 00:00:00 Only [facility] 2020-02-20 2020-02-20 Travel [facility] [id number] [facility] 00:[facility]:00 00:00:00 [facility] 2020-02-15 2020-02-[address] [facility] [id number] 11:03:44 11:33:44 Visit [facility] 2020-02-15 2020-02-15 [facility] [id number] [facility] 00:[facility]00 00:00:00 [facility] 2018-11-08 2018-11-09 [facility] [id number] 22:38:50 00:51:00 [place] [id number] [place] [id number] [place] [id number] 2018-06-29 2018-06-29 LENNOX [place] [id number] Univers 11:00:00 11:00:00 harsh ARGUELLO M.D. [facility] [place] CHEN M.D. Physi ci ans 2017-07-14 2017-07-14 Sandra CHEN, UTP Infectious 41 [id number] Univers 08:30:00 08:30:00 t; Nita ARGUELLO [facility] [place] CHEN M.D. Physi ci ans 2017-05-18 2017-05-18 Appointjen HAWKINSMARQUISLENNOX Infectious 38 [id number] Univers 08:30:00 08:30:00 t; Nita ARGUELLO [facility] [place] CHEN M.D. Physi ci ans 2017-04-30 2017-04-30 Appointmen LENNOX العراقي Pulmonary & [id number] Univers 13:00:00 13:00:00 t; IVETH العراقي M.D. Sleep ity of Nita LAZARO [place] Physici ans 2017-04-27 2017-04-27 LENNOX [place] Infect[facility] 39 [id number] Univers 10:30:00 10:30:00 t; Nita ARGUELLO [facility] [place] CHEN M.D. Physi ci ans 2017-03-30 2017-03-30 Appointjen HAWKINSMARQUISLENNOX Infectious 37 [id number] Univers 10:30:00 10:30:00 t; Nita ARGUELLO Diseases [facility] [place] CHEN M.D. Physi ci ans 2017-03-05 2017-03-05 Appointmen LENNOX العراقي Pulmonary & 372 [id number] Univers 14:00:00 14:00:00 t; IVETH العراقي M.D. Sleep [facility]y [facility] [place] LAZARO [place] Physici ans 2017-02-02 2017-02-02 LENNOX [place] Infectious 35 [id number] Univers 10:30:00 10:30:00 t; Nita ARGUELLO Diseases [facility] [place] CHEN M.D. Physi ci ans 2016-12-29 2016-12-29 LENNOX [place] [facility] [id number] Univers 10:30:00 10:30:00 t; Nita ARGUELLO [facility] of [place] CHEN M.D. Physi ci ans 2016-09-29 2016-09-29 AppointLENNOX Gómez [facility] [id number] Univers 10:30:00 10:30:00 t; Nita [place] Nita ARGUELLO Physi ci ans 2016-07-21 2016-[facility] APRIL, [facility] UTP [id number] Univers 08:30:00 08:30:00 t; Nita ARGEULLO [place], [place] Nita ARGUELLO Physi ci ans 2016-07-14 2016-07-[facility] ADILSON, [facility] UTP [id number] Univers 10:40:00 10:40:00 t; celestina KAUFMAN M.D. [place] Kenisha KAUFMAN M.D. ans 2016-05-12 2016-05-[facility] ADILSON, [facility] UTP [id number] Univers 08:40:00 08:40:00 t; celestina KAUFMAN M.D. [place] Kenisha KAUFMAN M.D. ans 2016-02-13 2016-02-[facility] JYOTHI, [facility] UTP [id number] Univers 13:00:00 13:00:00 t; celestina AVERY M.D. [place] BENNIE Physi ci MVarun ans 2016-02-06 2016-02-[facility] MIRELLA [facility] UTP [id number] Univers 13:15:00 13:15:00 t; , MadhaviSTSandeep AZEVEDO M.D. Physicthony [facility] MDarinDDarin 2016-01-24 2016-01-24 Appointmen MARS, LENNOX UTP [id number] Univers 14:00:00 14:00:00 t; MERRY CREWS ity o f WILLIAM, M.D. [place] M.D. Physici ans 2016-01-08 2016-01-08 Appointmen MARS, LENNOX UTP [id number] Univers 14:00:00 14:00:00 t; MERRY CREWS ity o f WILLIAM, M.D. [place] M.D. Physici ans 2015-12-27 2015-12-27 Appointmen MARS, LENNOX UTP [id number] Univers 14:15:00 14:15:00 t; MERRY CREWS ity o f WILLIAM, M.D. [place] Nita Physici ans Results Test Description Test Time Test Comments Results Result Comments Source Tissue Exam 2020-06-04 11:23:00 Test Item Value Reference Range Interpretation Comme nts Case Report (test code = 104) Surgical Pathology Report Case: [id number] Authorizing Provider: Fausto Lay, Collected: 05/21/2020 08:57 AM Ordering Location: [facility] Received: 05/21/2020 10:08 AM PERIOPERATIVE SERVICES Pathologist: Angelo Valdez MD Specimen: Plaque DIAGNOSIS (test code = 3220) [id number]eVsWeOs pc dWMxIHtccnRmMVxlcGljOTIwMlxhbnNpXHNwbHRw O4YhevmxQSvrGM7gRO1kwAilbXYffMMtPEMzWhGb f1wvh655uAAte4ffKNKKxgupiSl8uOrtP65yy0I9 LfrgI17cxSFzFBklwUUovywjdgZwHTGSCGMKJVcd OFODPQGUYJWWSUrVTCSZKgTNKsUUYqYEKO5ATYbv nUBmHJBWRERNFyxRYBHDKSGYF8MFAJSOR4QAYdRS EQVDAWHdG4mBFWQQN6JNCNUHSdDXZZPVJEPCYGBL BG9UQzHVBXhRAANiyn62OQO5IgQaz9J3BXI9GHUs IYZpa3enTWYbsNUpEfBbZtXtLfNrJebmhUZiEZFv UtOnh4mls597mIUup6zfVLOqIsM5hDQrYPZwnFPu L208TMEiPXjyu0cck1IvXVSiuQLcm3W8XJTDxycb kHp1fBfnA87ng8R6RvaeF3twUJGaPIJiD7JxBF9v ORRdDhb3KNE5JMI1RXQtLDMkS3UjWF7zTQKmzWTh XQq7n8urgGquJTXzBKO9k3nzVSwgzmWwYT3ftb2c lRj3n6qcgjDgDGSpGNEbhZAJWCKoP0YnnKhwFo0k aZz2iEpcCpklSUF4Zpt1FJ4smi13dme5vLtdXMDf jyujQsL9OFazMFZkjvtaISu4BAjtOJRqcJO2RUEf uCCoH4WnFVUbMU2kiym7XRL7TJunIUZdBoO5FJOv hPBxHOYoyMadLIjci166VRJ3BnTkBN1mJ6Rqv9C8 rT3yeVNsGKCshGIzOtCeNNIbpc3brSBvYZbxd0Vz SOG2qfK3lUTotWJnHDNsOnG2ROutBD9khn84KXVg BPA8ym2nxDHhcAqydtOupWQiWInfU9TdRLDac355 YEPdT0ZqYKTsx6P1axKmMeFsURHehNI5wyO3ZOQx SW4ntydwu8jkZYkqRQsqGZAzbgK1poL6CMQmeOTf Q0GetA1mIATeJU7hjloyt7mzOEI7LZhmAOVjMPM9 QkBqNCQal0Kjonk7KmHip6WmpXKzUUigW46km942 USNjgsHjF8ktsPZjwoyjwHYihwejPNyugbG1ZVMl PEdttbxtSYTxOSqhH9afYgOaXHLpbNxlUNfnh1He GVBeDCWvQbTkoEBqSVMcIgo5SGYheNRjTQOfZzRh K5pfrzoeDwNRWOAif8poR9zwnCXZuLCzE6VlOXbi khXbQGqpDVevBIOjMRZ6OL93MmymRWUmhi08 CPT Code(s) (test code = 3357) b6eooYXaFJUweTS7YcVfUWGii7dhx5EbkDWw cGFy CQbglUIosmKzyx78uZI9rD33CE9iMGHfYvJ2CLYx kpT5Qqh7FJFjMGRysSBzG193t3jjp1ddvcRrsUD5 xClxXLPrIUIxKPhpGTEcXcTcZVfvLNS4QGz6JgBo XHBhcn0= CLINICAL HISTORY (test code = 3356) d6qpvRNfDAJveWO6ZiVoWEIyt3kuu9O sdHBncGFy HOqglAVvpjFdzt35aOX3iQ24NF6xTGQpCgD5WNJh oxI6Nxb8VHDiGEUolFCgT661u1mnk6uimtKmeYY2 pFgfRYUbBDTnDWvmEQAfJsOlA2Yob5SySZNatSHh m8SyfxRvQKD4PIWrsa5= SPECIMEN SOURCE (test code = 3377) p1knqGHxONScaNK3LbKrOPKle4bbh7Iq dHBncGFy OYbhpZAkpuHlep31fHZ7cV31PF0zOVZyZdY2AVMi bbK5Umo2YTAxRVIekLLmW864m7ssa3heccWiuGS9 fVxwYXJkXHBsYWluXGZzMjAgUGxhcXVlIFxwYXJ9 GROSS DESCRIPTION (test code = 3366) b0qnsKGgSVCkbNA0MmSnYSAgd7cdb6 BsdHBncGFy KPccmCSkvmOyxe71fUE6dG42MF2jOUSqGiF8YICm lvK1Flp5VWKnSKYecKCfT325u7jhi0qwzgQapEE5 eVyyNARfAUSkQGoyNODiJwLpWA4dDeOcPAw5UOUy KfQqe0ggvQLsTWwaPZL5kZChHLDcOATcHKCqZD26 J3WywpZiQEeiRCIhAGJreK6xRF60uQMrfbJetfFw OhJzKMQ2BUBzWFHuIFH7fsRouVyiveUnaNQehVwm eKRgbM81SZTmshtkZ9PqI2ixhCCtAKViJOX3OGXb MJYtl5c3jeQtWNPljWDdetybUh32ULppGB36ELjk HZ5uPZMqAIkhHIOnO2XdK2B4NO4mLJbuFLWpAARv vWPnZUuoTLJghflloXd0WDIjB7Qzs59wNGQ5hsJu WNMfXRuslRZgsS18JLXxm2itZHG6vQEwnWScBRVs WdBMUTTiXLEhirKomKf0JGAaBOC5uC5fnaDtehNk n1XygTv2vKFnJOvwPUIfJZMnp8wdr3zgejawGBXk CWyhpOEvA3C8dA0lJqGENg0rl4omXVG6 MICROSCOPIC DESCRIPTION (test code = j4vrbEQnRRSmcOB5SnGcKMVjw2cby5 BsdHBncGFy 3371) IEsyxGAyrqZmxa26aZP7vO37GE3iQJXpWmJ9TNGj ttE1Nip4YCHmBFSriFVqE353q4ril0azufYhdZT4 pHfyWJIvXGGlDDxfDETuFeHrHJJoMq5ppZSmGNNf cn0= [facility] [id number] 11:23:00Surgical Pathology Report Case: [id number] Authorizing Provider: Fausto Lay, Collected: 05/21/2020 08:57 AM OrderingLocation: [facility] Received: 05/21/2020 10:08 AM PERIOPERATIVE SERVICES Pathologist: Angelo Valdez MD Specimen: Plaque ARTERY, LEFT CAROTID, ENDARTERECTOMY:CALCIFIC ATHEROSCLEROTIC PLAQUE WITH FOCAL INTRAPLAQUE HEMORRHAGE Signing Pathologist Direct Phone Line: [phone] signed by Angelo Valdez MD on 06/04/2020 at 11:23 [id number]; [id number] stenosis leftPlaque A. Received fresh labeled with the patient's name, accession number and "plaque" are two cylindrical, yellow-raymundo, calcified plaque deposits measuring 3.8 x 1.4 x 1.0 cm in aggregate. The specimen is serially sectioned to reveal yellow-brown cut surface. Repr esentative sections are submitted in A1, following decalcification. [facility]formed[facility] Metabolic [id number] 04:44:00 Test Item Value Reference Range Interpretation Comments Sodium (test code = 138 meq/L 377-822 2065-2) Potassium (test code = 4.7 meq/L 3.5-5.1 2823-3) Chloride (test code = 107 meq/L 98-107 2075-0) CO2 (test code = 24 meq/L 22-29 2028-9) BUN (test code = 28 mg/dL 7-21 H 3094-0) Creatinine (test code 1.60 mg/dL 0.57-1.25 H = 2160-0) Glucose (test code = 102 mg/dL 70-105 2345-7) Calcium (test code = 8.4 mg/dL 8.4-10.2 76841-1) EGFR (test code = 41 mL/min/1.73 [place] [address]-1) NOT ACCURATE CREATININE CLEARANCE IN PREDICTING GLOMERULAR FILTRATION RATE . ESTIMATED GFR I S NOT APPLICABLE FOR DIALYSIS PATIENTS. JUAN J (test code = JUAN J) Disability Counselor ID - ADMIN Lab Interpretation Abnormal (test code = 10737-4) [facility] METABOLIC [id number] 04:44:00 Test Item Value Reference Range Interpretation Comments SODIUM (BEAKER) 138 meq/L 136-145 (test code = 381) POTASSIUM (BEAKER) 4.7 meq/L 3.5-5.1 (test code = 379) CHLORIDE (BEAKER) 107 meq/L 98-107 (test code = 382) CO2 (BEAKER) (test 24 meq/L 22-29 code = 355) BLOOD UREA NITROGEN 28 mg/dL 7-21 H (BEAKER) (test code = 354) CREATININE (BEAKER) 1.60 mg/dL 0.57-1.25 H (test code = 358) GLUCOSE RANDOM 102 mg/dL 70-105 (BEAKER) (test code = 652) CALCIUM (BEAKER) 8.4 mg/dL 8.4-10.2 (test code = 697) EGFR (BEAKER) (test 41 mL/min/1.73 ESTIMA RAVI GFR IS code = 1092) sq m NOT ACCURATE CREATININE CLEARANCE IN PREDICTING GLOMERULAR FILTRATION RATE . ESTIMATED GFR I S NOT APPLICABLE FOR DIALYSIS PATIEN TS. Disability Counselor ID - ADMINCBC with platelet count + automated [id number] 04:11:00 Test Item Value Reference Range Interpretation Comments WBC (test code = 6690-2) 8.5 See_Comment [A utomated message] The system [employer] generated this result transmitted ref erence range: 3.5 - 10 .5 K/L. The refe rence range was not u sed to interpret this result as normal/abnor mal. RBC (test code = 789-8) 3.38 See_Comment L [Au tomated message] The system [employer] generated this result transmitted ref erence range: 4.63 - 6 .08 M/L. The refe rence range was not u sed to interpret this result as normal/abnor mal. MCHC (test code = 786-4) 31.2 See_Comment L [A utomated message] The system [employer] generated this result transmitted ref erence range: 32.3 - 3 6.5 GM/DL. The refe rence range was not u sed to interpret this result as normal/abnor mal. Hematocrit (test code = 34.9 % 40.1-51 L 4544-3) MCV (test code = 787-2) 103.3 fL 79-92.2 H MCH (test code = 785-6) 32.2 pg 25.7-32.2 RDW (test code = 788-0) 15.9 % 11.6-14.4 H Platelets (test code = 142 See_Comment L [Aut omated message] 777-3) The system [employer] generated this result transmitted ref erence range: 150 - 45 0 K/CU MM. The referen ce range was not u sed to interpret this result as normal/abnor mal. MPV (test code = 10.3 fL 9.4-12.4 68540-9) nRBC (test code = 413) 0 See_Comment [Aut omated message] The system [employer] generated this result transmitted ref erence range: 0 - 0 /1 00 WBC. The refere nce range was not u sed to interpret this result as normal/abnor mal. % Neutros (test code = 67 % 429) % Lymphs (test code = 18 % 430) % Monos (test code = 11 % 431) % Eos (test code = 432) 3 % % Baso (test code = 437) 1 % # Neutros (test code = 5.64 See_Comment H [Aut omated message] 670) The system [employer] generated this result transmitted ref erence range: 1.78 - 5 .38 K/L. The refe rence range was not u sed to interpret this result as normal/abnor mal. # Lymphs (test code = 1.52 See_Comment [Auto mated message] 414) The system [employer] generated this result transmitted ref erence range: 1.32 - 3 .57 K/L. The refe rence range was not u sed to interpret this result as normal/abnor mal. # Monos (test code = 0.94 See_Comment H [Autom ated message] 415) The system [employer] generated this result transmitted ref erence range: 0.30 - 0 .82 K/L. The refe rence range was not u sed to interpret this result as normal/abnor mal. # Eos (test code = 416) 0.24 See_Comment [Au tomated message] The system [employer] generated this result transmitted ref erence range: 0.04 - 0 .54 K/L. The refe rence range was not u sed to interpret this result as normal/abnor mal. # Baso (test code = 417) 0.05 See_Comment [A utomated message] The system [employer] generated this result transmitted ref erence range: 0.01 - 0 .08 K/L. The refe rence range was not u sed to interpret this result as normal/abnor mal. Immature 1 % 0-1 Granulocytes-Relative (test code = 2801) Lab Interpretation (test Abnormal code = 14273-0) [facility] W/PLT COUNT & AUTO [id number] 04:11:00 Test Item Value Reference Range Interpretation Comments WHITE BLOOD CELL COUNT (BEAKER) 8.5 K/ L 3.5-10.5 (test code = 775) RED BLOOD CELL COUNT (BEAKER) 3.38 M/ L 4.63-6.08 L (test code = 761) HEMOGLOBIN (BEAKER) (test code = 10.9 GM/DL 13.7-17.5 L 410) HEMATOCRIT (BEAKER) (test code = 34.9 % 40.1-51.0 L 411) MEAN CORPUSCULAR VOLUME (BEAKER) 103.3 fL 79.0-92.2 H (test code = 753) MEAN CORPUSCULAR HEMOGLOBIN 32.2 pg 25.7-32.2 (BEAKER) (test code = 751) MEAN CORPUSCULAR HEMOGLOBIN CONC 31.2 GM/DL 32.3-36.5 L (BEAKER) (test code = 752) RED CELL DISTRIBUTION WIDTH 15.9 % 11.6-14.4 H (BEAKER) (test code = 412) PLATELET COUNT (BEAKER) (test 142 K/CU MM 150-450 L code = 756) MEAN PLATELET VOLUME (BEAKER) 10.3 fL 9.4-12.4 (test code = 754) NUCLEATED RED BLOOD CELLS 0 /100 WBC 0-0 (BEAKER) (test code = 413) NEUTROPHILS RELATIVE PERCENT 67 % (BEAKER) (test code = 429) LYMPHOCYTES RELATIVE PERCENT 18 % (BEAKER) (test code = 430) MONOCYTES RELATIVE PERCENT 11 % (BEAKER) (test code = 431) EOSINOPHILS RELATIVE PERCENT 3 % (BEAKER) (test code = 432) BASOPHILS RELATIVE PERCENT 1 % (BEAKER) (test code = 437) NEUTROPHILS ABSOLUTE COUNT 5.64 K/ L 1.78-5.38 H (BEAKER) (test code = 670) LYMPHOCYTES ABSOLUTE COUNT 1.52 K/ L 1.32-3.57 (BEAKER) (test code = 414) MONOCYTES ABSOLUTE COUNT (BEAKER) 0.94 K/ L 0.30-0.82 H (test code = 415) EOSINOPHILS ABSOLUTE COUNT 0.24 K/ L 0.04-0.54 (BEAKER) (test code = 416) BASOPHILS ABSOLUTE COUNT (BEAKER) 0.05 K/ L 0.01-0.08 (test code = 417) IMMATURE GRANULOCYTES-RELATIVE 1 % 0-1 PERCENT (BEAKER) (test code = 2801) [id number] 11:18:00 Test Item Value Reference Range Interpretation Comments Potassium (test code = 4.5 meq/L 3.5-5.1 2823-3) JUAN J (test code = JUAN J) Disability Counselor ID Keith ADRIAN F Lab Interpretation (test Normal code = 85923-3) [facility] 11:18:00 Test Item Value Reference Range Interpretation Comments POTASSIUM (BEAKER) (test code = 4.5 meq/L 3.5-5.1 379) Disability Counselor ID Keith ADRIAN FPotassium-Stat [id number] 09:57:00 Test Item Value Reference Range Interpretation Comments Potassium (test code = 2823-3) 6.0 meq/L 3.6-5.5 HH Lab Interpretation (test code = Abnormal 36464-8) [facility] [id number] 09:57:00 Test Item Value Reference Range Interpretation Comments POTASSIUM (BEAKER) (test code = 6.0 meq/L 3.6-5.5 HH 379) HGB/HCT (H&H)-Stat [id number] 09:54:00 Test Item Value Reference Range Interpretation Comments Hemoglobin (test code = 11.4 See_Comment L [Au tomated message] 786-4) The system [employer] generated this result transmitted ref erence range: 13.0 - 1 6.8 GM/DL. The refe rence range was not u sed to interpret this result as normal/abnor mal. Hematocrit (test code = 34.0 % 40-50 L 4544-3) Lab Interpretation (test Abnormal code = 72126-5) [facility] [id number] 09:54:00 Test Item Value Reference Range Interpretation Comments Glucose (test code = 2345-7) 121 mg/dL 70-110 H Lab Interpretation (test code = Abnormal 20100-7) [facility] - STAT [id number] 09:54:00 Test Item Value Reference Range Interpretation Comments HEMOGLOBIN (BEAKER) (test code = 11.4 GM/DL 13.0-16.8 L 410) HEMATOCRIT (BEAKER) (test code = 34.0 % 40.0-50.0 L 411) GLUCOSE-STAT [id number] 09:54:00 Test Item Value Reference Range Interpretation Comments GLUCOSE RANDOM (BEAKER) (test code 121 mg/dL 70-110 H = 652) Calcium, [id number] 09:53:00 Test Item Value Reference Range Interpretation Comments Calcium, Ion (test code = 1994-3) 1.07 mmol/L 1.12-1.27 L pH, Blood (test code = 27255-6) 7.30 Lab Interpretation (test code = Abnormal 87012-6) [facility] CenterCALCI[facility], [id number] 09:53:00 Test Item Value Reference Range Interpretation Comments CALCIUM IONIZED (BEAKER) (test 1.07 mmol/L 1.12-1.27 L code = 698) PH, BLOOD (BEAKER) (test code = 7.30 1810) RAD, CHEST, 1 VIEW, NON [id number] 08:18:00Reason for exam:->pre opShould this be performed at the bedside?->Yes [facility] : 1935 Sex: MFINAL REPORT CLINICAL HISTORY: pre op TECHNIQUE: 1 view of the chest. COMPARISON: None IMPRESSION: There are coarsened lung markings bilaterally with a basilar predominance. There are suspected bilateral pleural calcifications. There is no lobar consolidation or significant pleural fluid. There is no cardiomegaly. Signed: Maegan Palm MDReport Verified Date/Time: 05/21/2020 08:18:55 Reading Location: [facility] Reading Room XR chest 1 view portable / [id number] 08:18:00Interface, External Ris In - 05/21/2020 8:22 AM CSTFINAL REPORT CLINICAL HISTORY: pre op TECHNIQUE: 1 view of the chest. COMPARISON: None IMPRESSION: There are coarsened lung markings bilaterally with a basilar predominance. There are suspected bilateral pleural calcifications. There is no lobar consolidation or significant pleural fluid. There is no cardiomegaly. Signed: Maegan Palm MDReport Verified Date/Time: 05/21/2020 08:18:55 Reading Location: [facility] 2020-05-18 19:43:39Interface, External Ris In - 05/18/2020 7:43 PM CSTVentricular Rate 79 BPMAtrial Rate 79 BPMP-R Interval 182 msQRS Duration 86 msQ-T Interval 404 msQTC Calculation(Bazett) 463 msP [employer] 98 degreesR [employer] 18 degreesT [employer] 51 degreesNormal sinus rhythmNormal ECGWhen compared with ECG of 20-FEB-2020 07:59,No significant change was foundConfirmed by Danilo King ([id number]) on 05/18/2020 7:43:38 [facility]As[facility]omatic [facility]2020-05-18 14:13:00 Test Item Value Reference Range Interpretation Comments SARS-COV2/RT-PCR Negative Not Detected, (test code = Negative, See 94649-2) external report for linked test SARS-COV-2 [facility] NANI PERFORMING LAB (test code = 49493-8) JUAN J (test code = Negative result [...] limit of detection for this assay is 800 copies/mL. This SARS CoV-2 test is a [...] revoked under Section 564(g) of the Act. Fact Sheet for Healthcare Providers:https://www.[employer]/sites/default/f sheila/product/documents/F act_Sheet_HC_Providers_L utc_IALY-PhE-3.pdf Fact Sheet for Healthcare Patients:https://www.[employer]mex/sites/default/fi les/product/documents/Fa ct_Sheet_Patients_Lyra_S ARS-CoV-2.pdf Performing Laboratory:[facility] [place] [address] [facility])2020-05-18 14:13:00 Test Item Value Reference Range Interpretation Comments SARS-COV2/RT-PCR (test Negative Not Detected, Negative, code = 6785122) See external report for linked test SARS-COV-[address] [facility] NANI (test code = 7641024) Negative result for this test determines that [...] limit of detection for this assay is 800 copies/mL.This SARS CoV-2 test is a real-time [...] is revoked under Section 564(g) of the Act.Fact Sheet for Healthcare Providers:https://www.[employer].com/sites/default/files/product/documents/Fact_Shee v_BR_Cddhlzocm_Xflz_ZLFG-SkW-4.pdfFact Sheet for Healthcare Patients:https://www.[employer].com/sites/default/files/product/ documents/Ppkh_Zdcmk_Rwxebqyx_Qlgm_CQDU-ZmI-5.pdfPerforming Laboratory:[facility], [place] [address]Tqfz and screen, [id number] 11:54:00 Test Item Value Reference Range Interpretation Comments ABO/RH AUTOMATED (BEAKER) (test O POSITIVE code = 2260) Ab Scrn (test code = 890-4) NEGATIVE [facility]OL[facility] [id number] 11:43:00 Test Item Value Reference Range Interpretation Comments SODIUM (BEAKER) 140 meq/L 136-145 (test code = 381) POTASSIUM (BEAKER) 5.0 meq/L 3.5-5.1 (test code = 379) CHLORIDE (BEAKER) 107 meq/L 98-107 (test code = 382) CO2 (BEAKER) (test 24 meq/L 22-29 code = 355) BLOOD UREA NITROGEN 24 mg/dL 7-21 H (BEAKER) (test code = 354) CREATININE (BEAKER) 1.49 mg/dL 0.57-1.25 H (test code = 358) GLUCOSE RANDOM 98 mg/dL 70-105 (BEAKER) (test code = 652) CALCIUM (BEAKER) 9.2 mg/dL 8.4-10.2 (test code = 697) EGFR (BEAKER) (test 45 mL/min/1.73 ESTIMA RAVI GFR IS code = 1092) sq m NOT ACCURATE CREATININE CLEARANCE IN PREDICTING GLOMERULAR FILTRATION RATE . ESTIMATED GFR I S NOT APPLICABLE FOR DIALYSIS PATIMADISYN MCCORMACK. Disability Counselor ID - ENRIQUE CProthrombin time/[id number] 11:34:00 Test Item Value Reference Interpretation Comments Range Protime (test code = 14.3 See_Comment H [Autom ated 5902-2) message] The system which generated this result transmitted reference range : 11.9 - 14.2 seconds. The reference range was not used to interpret this result as normal/abnormal . INR (test code = 1.16 See_Comment [Automated 6301-6) message] The system which generated this result transmitted reference range : <=5.90. The reference range was not used to interpret this result as normal/abnormal . JUAN J (test code = Effective 08/11/2018: JUAN J) PT Reference Range ChangeNew: 11.9-14.2 Previous: 11.7-14.7 RECOMMENDED COUMADIN/WARFARIN INR THERAPY RANGESSTANDARD DOSE: 2.0-3.0 Includes: PROPHYLAXIS for venous thrombosis, systemic embolization; TREATMENT for venous thrombosis and/or pulmonary embolus.HIGH RISK: Target INR is 2.5-3.5 for patients wiht mechanical heart valves. Lab Interpretation Abnormal (test code = 31412-1) [facility] CenterPROTHROMBIN TIME/[id number] 11:34:00 Test Item Value Reference Range Interpretation Comments PROTIME (BEAKER) 14.3 seconds 11.9-14.2 H (test code = 759) INR (BEAKER) (test 1.16 See_Comment [Automat ed message] code = 370) The system [employer] generated this result transmitted ref erence range: <=5.90. The reference range was not used to int erpret this result as normal/abnormal . Effective 08/11/2018: PT Reference Range ChangeNew: 11.9-14.2 Previous: 11.7- 14.7RECOMMENDED COUMADIN/WARFARIN INR THERAPY RANGESSTANDARD DOSE: 2.0-3.0 Includes: PROPHYLAXIS for venous thrombosis, systemic embolization; TREATMENT for venous thrombosis and/or pulmonary embolus.HIGH RISK: Target INR is2.5-3.5 for patients wiht mechanical heart valves.CBC W/PLT COUNT & AUTO [id number] 11:14:00 Test Item Value Reference Range Interpretation Comments WHITE BLOOD CELL COUNT (BEAKER) 9.8 K/ L 3.5-10.5 (test code = 775) RED BLOOD CELL COUNT (BEAKER) 4.06 M/ L 4.63-6.08 L (test code = 761) HEMOGLOBIN (BEAKER) (test code = 13.1 GM/DL 13.7-17.5 L 410) HEMATOCRIT (BEAKER) (test code = 42.0 % 40.1-51.0 411) MEAN CORPUSCULAR VOLUME (BEAKER) 103.4 fL 79.0-92.2 H (test code = 753) MEAN CORPUSCULAR HEMOGLOBIN 32.3 pg 25.7-32.2 H (BEAKER) (test code = 751) MEAN CORPUSCULAR HEMOGLOBIN CONC 31.2 GM/DL 32.3-36.5 L (BEAKER) (test code = 752) RED CELL DISTRIBUTION WIDTH 15.6 % 11.6-14.4 H (BEAKER) (test code = 412) PLATELET COUNT (BEAKER) (test 174 K/CU MM 150-450 code = 756) MEAN PLATELET VOLUME (BEAKER) 10.0 fL 9.4-12.4 (test code = 754) NUCLEATED RED BLOOD CELLS 0 /100 WBC 0-0 (BEAKER) (test code = 413) NEUTROPHILS RELATIVE PERCENT 62 % (BEAKER) (test code = 429) LYMPHOCYTES RELATIVE PERCENT 23 % (BEAKER) (test code = 430) MONOCYTES RELATIVE PERCENT 10 % (BEAKER) (test code = 431) EOSINOPHILS RELATIVE PERCENT 4 % (BEAKER) (test code = 432) BASOPHILS RELATIVE PERCENT 1 % (BEAKER) (test code = 437) NEUTROPHILS ABSOLUTE COUNT 6.00 K/ L 1.78-5.38 H (BEAKER) (test code = 670) LYMPHOCYTES ABSOLUTE COUNT 2.25 K/ L 1.32-3.57 (BEAKER) (test code = 414) MONOCYTES ABSOLUTE COUNT (BEAKER) 0.94 K/ L 0.30-0.82 H (test code = 415) EOSINOPHILS ABSOLUTE COUNT 0.37 K/ L 0.04-0.54 (BEAKER) (test code = 416) BASOPHILS ABSOLUTE COUNT (BEAKER) 0.09 K/ L 0.01-0.08 H (test code = 417) IMMATURE GRANULOCYTES-RELATIVE 1 % 0-1 PERCENT (BEAKER) (test code = 2801) TISSUE [id number] 19:08:00Surgical Pathology Report Case: [id number] Authorizing Provider: Fausto Lay, Collected: 02/22/2020 09:24 AM Ordering Location: [facility] Received: 02/22/2020 10:31 AM PERIOPERATIVE SERVICES Pathologist: Angelo Valdez MD Specimen: Plaque, RIGHT CAROTID PLAQUE ARTERY, RIGHT CAROTID, ENDARTERECTOMY:CALCIFIC ATHEROSCLEROTIC PLAQUE Signing Pathologist Direct Phone Line: [phone] signed by Angelo Valdez MD on 02/24/2020 at 7:08 [id number]; [id number] stenosis, right PlaqueReceived in formalin labeled the patient's name, accession number and "right carotidplaque" is a 3.4 cm in length by 0.5 cm in diameter raymundo-yellow tubular piece of focally calcified plaque. Welding Instructor sections are submitted in A1 following decalcification.CHRISTINA Ross, HT (ASCP)MdfcogffaOyelgmbyx2400-24-25 06:51:00 Test Item Value Reference Range Interpretation Comments Magnesium (test code = 2.1 mg/dL 1.6-2.6 73233-6) JUAN J (test code = JUAN J) Disability Counselor ID - KYLIE Davila Lab Interpretation (test Normal code = 74857-2) [facility] METABOLIC [id number] 06:51:00 Test Item Value Reference Range Interpretation [...] S NOT APPLICABLE FOR DIALYSIS PATIEN TS. Disability Counselor ID - KYLIE [id number] 06:51:00 Test Item Value Reference Range Interpretation Comments MAGNESIUM (BEAKER) (test code = 2.1 mg/dL 1.6-2.6 627) Disability Counselor ID - KYLIE MCBC (Hemogram only)2020-02-23 06:12:00 Test Item Value Reference Range Interpretation Comments WBC (test code = 6690-2) 11.3 See_Comment H [A utomated message] The system [employer] generated this result transmitted ref erence range: 3.5 - 10 .5 K/L. The refe rence range was not u sed to interpret this result as normal/abnor mal. RBC (test code = 789-8) 3.10 See_Comment L [Au tomated message] The system [employer] generated this result transmitted ref erence range: 4.63 - 6 .08 M/L. The refe rence range was not u sed to interpret this result as normal/abnor mal. MCHC (test code = 786-4) 30.6 See_Comment L [A utomated message] The system [employer] generated this result transmitted ref erence range: 32.3 - 3 6.5 GM/DL. The refe rence range was not u sed to interpret this result as normal/abnor mal. Hematocrit (test code = 33.7 % 40.1-51 L 4544-3) MCV (test code = 787-2) 108.7 fL 79-92.2 H MCH (test code = 785-6) 33.2 pg 25.7-32.2 H RDW (test code = 788-0) 14.6 % 11.6-14.4 H Platelets (test code = 160 See_Comment [Aut omated message] 777-3) The system [employer] generated this result transmitted ref erence range: 150 - 45 0 K/CU MM. The referen ce range was not u sed to interpret this result as normal/abnor mal. MPV (test code = 10.0 fL 9.4-12.4 03956-2) nRBC (test code = 413) 0 See_Comment [Aut omated message] The system [employer] generated this result transmitted ref erence range: 0 - 0 /1 00 WBC. The refere nce range was not u sed to interpret this result as normal/abnor mal. Lab Interpretation (test Abnormal code = 71987-8) [facility] (HEMOGRAM ONLY)2020-02-23 06:12:00 Test Item Value Reference [...] WBC 0-0 (BEAKER) (test code = 413) POC-Glucose [id number] 06:03:00 Test Item Value Reference Range Interpretation Comments POC-Glucose Meter (test 102 mg/dL 70-110 : TE STED AT [facility] code = 1538) [address] [facility], [address]: Disability Counselor/Techni karen ID = [id number] for BEKA RIVERA AL Lab Interpretation (test Normal code = 86623-5) [facility] CenterPO[facility] [id number] 06:03:00 Test Item Value Reference Range Interpretation Comments POC-GLUCOSE METER 102 mg/dL 70-110 : TESTED A T [facility] [address] ([facility]) (test code [facility], = 1538) [address]: Disability Counselor/Techni karen ID = [id number] for ADALID REED, BEKAAL SARS-COV2/RT-PCR ([facility])2020-02-20 22:57:00 Test Item Value Reference Range Interpretation Comments SARS-COV2/RT-PCR (test Negative Not Detected, Negative, code = 0799139) See external report for linked test SARS-COV-[address] [facility] NANI (test code = 8728048) Negative result for this test determines that [...] of the Act.Testing was performed using the Q[place]hi SARS-CoV-2 assay.Fact Sheet for Healthcare Providers:https://www.[facility].qureshi/chely/ VH_UGDG-MwM-6_DTJ_Knuh_Vjrhl_95-417443.pdfFact Sheet for Healthcare Patients:https://www.[facility].[employer] justin/chely/WU_SIII-YiB-5_Ydhvefp_Phca_Uwgjc_JZ_[email or web address].pdfPerforming Laboratory:[facility] [address] [place] [address] BASIC METABOLIC [id number] 12:39:00 Test Item Value Reference Range Interpretation [...] S NOT APPLICABLE FOR DIALYSIS PATIEN TS. Disability Counselor ID - [id number] TIME/[id number] 12:32:00 Test Item Value Reference Range Interpretation [...] is2.5-3.5 for patients wiht mechanical heart valves.CBC W/PLT COUNT & AUTO [id number] 12:25:00 Test Item Value Reference Range Interpretation [...] H PERCENT (BEAKER) (test code = 2801) [[facility]] CBC (INCLUDES DIFF/PLT)2018-06-29 12:25:01 Test Item Value Reference Range Interpretation Comments WBC (test code = 6690-2) 5.7 {K/CMM} 3.7-10.4 RBC; Below Low Threshold (test 3.17 {M/CMM} 4.70-6.10 code = 789-8) Hgb; Below Low Threshold (test 11.9 g/dl 14.0-18.0 code = 718-7) Hct; Below Low Threshold (test 35.9 % 42.0-54.0 code = 29049-0) MCV; Above High Threshold (test 113.2 fL 80.0-94.0 code = 787-2) MCH; Above High Threshold (test 37.6 pg 27.0-31.0 code = 785-6) MCHC (test code = 786-4) 33.2 g/dl 32.0-36.0 RDW; Above High Threshold (test 15.8 % 11.5-14.5 code = 788-0) Platelet (test code = 59736-8) 205 {K/CMM} 133-450 Mean Platelet Volume (test code 7.4 fL 7.4-10.4 = 61903-7) [facility]] CMP [id number] 12:25:01 Test Item Value Reference Range Interpretation Comments Sodium Level 142 {mEq/l} 135-145 (test code = 2951-2) Potassium Level 4.8 {mEq/l} 3.5-5.1 (test code = 2823-3) Chloride Level; 110 {mEq/l} 95-109 Above High Threshold (test code = 5-0) Carbon Dioxide 26 {mEq/l} 24-32 (test code = 8-9) AGAP (test code = 10.8 {mEq/l} 10.0-20.0 17592-2) Glucose Lvl; 113 mg/dl 70-99 Adult reference range Above High values reflect the Threshold (test clinical bin delinesof the code = 2345-7) [employer]. Creatinine Lvl; 1.50 mg/dl [...] g/dl 2.7-4.2 High Threshold (test code = 78898-0) A/G Ratio (test 0.8 0.7-1.6 code = 1759-0) Calcium Level 9.3 mg/dl 8.5-10.5 Total (test code = 25174-7) ALT (test code = 18 u/l 0-65 1743-4) AST (test code = 23 u/l 0-37 56927-9) Alk Phos; Above 145 u/l 39-136 High Threshold (test code = 1783-0) Bili Total (test 0.5 mg/dl 0.2-1.3 code = 1974-) eGFR (test code = 42 The eGFR i s calculated 41146-0) {ML/MIN/1.7} using the CKD-E PI formula. In [...] be multiplied by t he estimated BMI. [facility]] C-REACTIVE [id number] 12:25:01 Test Item Value Reference Range Interpretation Comments CRP (test code = CRP) 18.9 mg/L <=2.9 [facility]] [id number] 12:25:01 Test Item Value Reference Range Interpretation Comments Segmented Neutrophils (test code 60.7 % 45.0-75.0 = 16389-2) Monocytes (test code = 54560-9) 8.6 % 2.0-12.0 Lymphocytes (test code = 80391-5) 29.0 % 20.0-40.0 Eosinophils (test code = 77784-7) 1.3 % 0.0-4.0 Basophils (test code = 706-2) 0.4 % 0.0-1.0 Segs-Bands # (test code = 3.5 {K/CMM} 1.5-8.1 74420-8) Lymphocytes # (test code = 1.7 {K/CMM} 1.0-5.5 12145-7) Monocytes # (test code = 00196-8) 0.5 {K/CMM} 0.0-0.8 Eosinophils # (test code = 0.1 {K/CMM} 0.0-0.5 78444-8) Plt Morphology (test code = Plt Normal Normal Morphology) Macrocyte (test code = Macrocyte) 3+ None Seen [facility]] SED RATE BY MODIFIED [id number] 12:25:01 Test Item Value Reference Range Interpretation Comments Sedimentation Rate; Above High 82 {mm/hr} 0-15 Threshold (test code = 93844-7) [facility] Brain w/wo contrast [id number] 10:13:00 Clinical Indication: J32.9 Chronic sinusitis, unspecified [...] 11:09Electronically Signed by: Ashok Sepulveda MD 07/31/1810:23FINAL [facility]PORT[facility]] CMP [id number] 11:21:00 Test Item Value Reference Range Interpretation [...] eGFR NON- 49 > OR = 60 [place] (test {ML/MIN/1.7} code = eGFR NON-) eGFR 57 > OR = 60 [place] (test {ML/MIN/1.7} code = eGFR ) BUN/CREATININE [...] mg/dl 0.2-1.2 N Normal (test code = 97951-2) ALKALINE 321 u/l 40-115 PHSPHATASE (test code = ALKALINE PHSPHATASE) AST; Normal (test 19 u/l 10-35 N code = 1916-6) ALT; Normal (test 18 u/l 9-46 N code = 1742-6) [facility]] SED RATE BY MODIFIED [id number] 11:21:00 Test Item Value Reference Range Interpretation Comments SED RATE BY MODIFIED WESTERGREN (test 55 mm/h < OR = 20 code = SED RATE BY MODIFIED WESTERGREN) [facility]] CBC (INCLUDES DIFF/PLT)2017-07-21 11:21:00 Test Item Value Reference Range Interpretation Comments WHITE BLOOD CELL COUNT 5.9 {Thousand/u} 3.8-10.8 N (test code = WHITE BLOOD CELL COUNT) RED BLOOD CELL COUNT (test 3.11 {Million/uL} 4.20-5.80 code = RED BLOOD CELL COUNT) HEMOGLOBIN; Below Low 10.4 g/dl 13.2-17.1 Threshold (test code = 11239-6) HEMATOCRIT; Below Low 31.8 % 38.5-50.0 Threshold (test code = 4544-3) MCV; Above High Threshold 102.3 fL 80.0-100.0 (test code = 787-2) MCHC; Normal (test code = 32.7 g/dl 32.0-36.0 N 66172-5) RDW; Normal (test code = 13.5 % 11.0-15.0 N 788-0) PLATELET COUNT; Normal 200 {Thousand/u} 140-400 N (test code = 777-3) MPV; Normal (test code = 10.2 fL 7.5-12.5 N 83311-4) ABSOLUTE NEUTROPHILS (test 3357 {cells/uL} 9072-8935 N code = ABSOLUTE NEUTROPHILS) ABSOLUTE LYMPHOCYTES [...] Normal (test 8.6 % N code = 65158-3) EOSINOPHILS; Normal (test 1.5 % N code = 01073-7) BASOPHILS; Normal (test 0.5 % N code = 98271-5) [facility][H] C-REACTIVE [id number] 11:21:00 Test Item Value Reference Range Interpretation Comments C-REACTIVE PROTEIN (test code = 45.2 mg/L <8.0 C-REACTIVE PROTEIN) [facility] [id number] 19:00:00 Test Item Value Reference Range Interpretation Comments Completed (test code = Completed) DONE [facility][L] GI Profile, Stool, [id number] 09:25:00 Test Item Value Reference Range Interpretation [...] Not Detected code = Enterotoxigenic E coli) Dpylxc-fxmkf-zzyzhlbun E coli Not Detected Not Detected (test code = Dpifui-jddbn-ejoulqyax E coli) E coli O157 (test code [...] code = Not Detected Not Detected Sapovirus) [facility][QL] COMPREHENSIVE METABOLIC PANEL W/O eGFR 2017-04-24 09:25:00 Test Item Value Reference Range Interpretation Comments Glucose, Serum; Above High 113 mg/dL 65-99 Threshold (test code = 2345-7) BUN (test code = 3094-0) 21 mg/dL 8-27 Creatine, Serum (test code = 1.23 mg/dL 0.76-1.27 2160-0) eGFR If NonAfricn Am; Below Low 54 mL/min/1.7 >59 Threshold (test code = 19193-8) eGFR If Africn Am (test code = 62 mL/min/1.7 >59 47907-2) BUN/Creatine Ratio (test code = 17 10- 3097-3) Sodium, Serum (test code = 142 mmol/L 052-900 6776-2) Potassium, Serum (test code = 3.7 mmol/L 3.5-5.2 2823-3) Chloride, Serum (test code = 103 mmol/L 96-106 2075-0) Carbon Dioxide, Total (test 24 mmol/L 18-29 code = 2028-9) Calcium, Serum (test code = 8.9 mg/dL 8.6-10.2 51412-6) Protein, Total, Serum (test 6.4 g/dL 6.0-8.5 code = 2885-2) Albumin, Serum (test code = 3.7 g/dL 3.5-4.7 1751-7) Globulin, Total (test code = 2.7 g/dL 1.5-4.5 70448-3) A/G Ratio (test code = 1759-0) 1.4 1.2-2.2 Bilirubin, Total (test code = 0.4 mg/dL 0.0-1.2 1974-2) Alkaline Phosphatase, S; Above 247 {IU/L} 39-117 High Threshold (test code = 6768-6) AST (SGOT) (test code = 1920-8) 27 {IU/L} 0-40 ALT (SGPT) (test code = 1742-6) 22 {IU/L} 0-44 [facility] Chest wo contrast [id number] 09:05:00CT CHEST WITHOUT CONTRAST:HISTORY: Dyspnea on exertion, [...] No other acute CT abnormalities of the chest.WILVER [id number]--Rubw by: Poli Acuña MDDictated Date/time: 04/09/17 16:48Electronically Signed by: Poli Acuña MD 04/09/1815:56FINAL REPORTUnLDS [facility]] HEPATIC FUNCTION [id number] 13:43:00 Test Item Value Reference Range Interpretation Comments PROTEIN, TOTAL 7.3 g/dl 6.1-8.1 N (test code = PROTEIN, TOTAL) ALBUMIN (test code 3.9 g/dl 3.6-5.1 N = ALBUMIN) GLOBULIN (test code 3.4 {G/DL 1.9-3.7 N = GLOBULIN) CALC} ALBUMIN/GLOBULIN 1.1 {CALC} 1.0-2.5 N RATIO (test code = ALBUMIN/GLOBULIN RATIO) BILIRUBIN, DIRECT; 0.1 mg/dl < OR = 0.2 N Normal (test code = 89354-0) BILIRUBIN, 0.3 {MG/DL 0.2-1.2 N INDIRECT; Normal JOSHUA} (test code = 1971-1) ALKALINE PHOSPHATE 223 u/l 40-115 (test code = ALKALINE PHOSPHATE) AST; Normal (test 32 u/l 10-35 N code = 1916-6) ALT; Normal (test 26 u/l 9-46 N SPECIMEN R ECEIVED code = 1742-6) DATE AND TIME : ALKALINE PHSPHATASE 223 u/l 40-115 (test code = ALKALINE PHSPHATASE) [facility]] SED RATE BY MODIFIED [id number] 13:43:00 Test Item Value Reference Range Interpretation Comments SED RATE BY MODIFIED 74 mm/h < OR = 20 SPECIME N RECEIVED DATE HAMILTON (test code AND TI ME: [id number] = SED RATE BY MODIFIED WESTERGREN) [facility] [id number] 20:00:00 Test Item Value Reference Range Interpretation Comments Completed (test code = Completed) DONE [facility]] SED RATE BY MODIFIED [id number] 11:26:00 Test Item Value Reference Range Interpretation Comments SED RATE BY MODIFIED 79 mm/h < OR = 20 SPECIME N RECEIVED DATE HAMILTON (test code AND TI ME: [id number] = SED RATE BY MODIFIED WESTERGREN) [facility]] CBC (INCLUDES DIFF/PLT)2017-02-03 11:26:00 Test Item Value Reference Range Interpretation Comments WHITE BLOOD CELL 9.4 3.8-10.8 N COUNT (test code = {Thousand/u} WHITE BLOOD CELL COUNT) RED BLOOD CELL COUNT 3.16 4.20-5.80 (test code = RED {Million/uL} BLOOD CELL COUNT) HEMOGLOBIN; Below 10.5 g/dl 13.2-17.1 Low Threshold (test code = 31043-8) HEMATOCRIT; Below 31.8 % 38.5-50.0 Low Threshold (test code = 4544-3) MCV; Above High 100.6 fL 80.0-100.0 Threshold (test code = 787-2) MCHC; Normal (test 33.0 g/dl 32.0-36.0 N code = 51376-3) RDW; Normal (test 14.2 % 11.0-15.0 N code = 788-0) PLATELET COUNT; 233 140-400 N Normal (test code = {Thousand/u} 777-3) MPV; Normal (test 9.8 fL 7.5-12.5 N code = 44349-1) ABSOLUTE NEUTROPHILS 6129 8700-7605 N (test code = {cells/uL} ABSOLUTE NEUTROPHILS) [...] Normal 7.8 % N (test code = 52897-0) EOSINOPHILS; Normal 1.7 % N (test code = 81217-8) BASOPHILS; Normal 0.6 % N SPECIMEN R ECEIVED (test code = DATE AND TIME: 16483-1) [id number] [facility]] C-REACTIVE [id number] 11:26:00 Test Item Value Reference Range Interpretation Comments C-REACTIVE PROTEIN 33.5 mg/L <8.0 SPECIMEN RECEIVED DATE (test code = AND TIME: 1126 C-REACTIVE PROTEIN) [facility]] SED RATE BY RANDOLPH [id number] 14:32:00 Test Item Value Reference Range Interpretation Comments SED RATE BY MODIFIED HAMILTON (test 58 mm/h < OR = 20 code = SED RATE BY MODIFIED HAMILTON) [facility]] CBC (INCLUDES DIFF/PLT)2016-12-29 14:32:00 Test Item Value Reference Range Interpretation Comments WHITE BLOOD CELL COUNT 6.8 {Thousand/u} 3.8-10.8 N (test code = WHITE BLOOD CELL COUNT) RED BLOOD CELL COUNT (test 3.04 {Million/uL} 4.20-5.80 code = RED BLOOD CELL COUNT) HEMOGLOBIN; Below Low 9.7 g/dl 13.2-17.1 Threshold (test code = 51761-1) HEMATOCRIT; Below Low 29.1 % 38.5-50.0 Threshold (test code = 4544-3) MCV; Normal (test code = 95.7 fL 80.0-100.0 N 787-2) MCHC; Normal (test code = 33.3 g/dl 32.0-36.0 N 65962-7) RDW; Normal (test code = 14.2 % 11.0-15.0 N 788-0) PLATELET COUNT; Normal 224 {Thousand/u} 140-400 N (test code = 777-3) MPV; Normal (test code = 9.8 fL 7.5-12.5 N 74003-6) ABSOLUTE NEUTROPHILS (test 4005 {cells/uL} 1359-7936 N code = ABSOLUTE NEUTROPHILS) ABSOLUTE LYMPHOCYTES [...] Normal (test 8.1 % N code = 59039-7) EOSINOPHILS; Normal (test 3.2 % N code = 29574-6) BASOPHILS; Normal (test 0.7 % N code = 65004-8) [facility]
--- NOTE | 2020-11-15 21:44 | RAD REPORT ---
EXAM DESCRIPTION: RAD - Chest Single View - 11/15/2020 9:38 pm CLINICAL HISTORY: SOB Chest pain. COMPARISON: Chest Single View dated 03/30/2020; Chest Pa And Lat (2 Views) dated 02/03/2020; Chest Pa And Lat (2 Views) dated 12/22/2017; Abdomen Acute Series dated 04/18/2017 FINDINGS: Portable technique limits examination quality. Mild interstitial opacities are present bilaterally which may represent mild interstitial pulmonary e justo or viral infection. The heart is moderately enlarged. No displaced fractures. IMPRESSION: Mild CHF versus viral infection pattern.
[2020-11-15 22:01] LABS: Absolute Lymphocytes (CBC) 1.1 K/uL (0.7-4.9); Basophils % 0.8 % (0-1.3); Hematocrit 42.1 % (39.6-49.0); MPV 8.3 fL (7.6-11.3); Protime INR 1.35; RBC Red Blood Cell Count 4.28 M/uL (4.33-5.43)
[2020-11-15 22:08] LABS: ALT/SGPT 116 U/L (12-78); AST/SGOT 190 U/L (15-37); Albumin 3.7 g/dL (3.4-5.0); Alkaline Phosphatase 162 U/L (45-117); BUN Blood Urea Nitrogen 25 mg/dL (7-18); Bicarbonate 27 mmol/L (21-32); Bilirubin Direct 0.2 mg/dL (0-0.2); Bilirubin Total 0.5 mg/dL (0.2-1.0); Glucose Level 104 mg/dL (74-106); Magnesium 2.6 mg/dL (1.8-2.4); NT PRO-BNP 414 pg/mL (<450); Protein, Total 9.7 g/dL (6.4-8.2); Sodium Level 138 mmol/L (136-145); Troponin (Emerg Dept Use Only) < 0.02 ng/mL (0.0-0.045)
[2020-11-15] MEDS ORDERED: NA CHLORIDE 0.9% 500 ML ONE (22:50)
[2020-11-15] MEDS ORDERED: CASIRIVIMAB/IMDEVIMAB 10 ML VIAL ONE (23:28)
[2020-11-15] MEDS ORDERED: NA CHLORIDE 0.9% 250 ML ONE (23:28)
[2020-11-16] MEDS ORDERED: NA CHLORIDE 0.9% 50 ML ONE (00:59)
--- NOTE | 2020-11-16 01:41 | ER ---
Nurse's Notes [facility] Name: Sly Sheets Age: 85 yrs Sex: Male : 1935 Arrival Date: 11/15/2020 Time: 17:45 Bed DX3 Private MD: Diagnosis: Coronavirus infection, unspecified;Pain in left foot;Pain in right foot Presentation: 11/15 18:01 Chief complaint: Patient states: Fever, chills, SOB, headache x 2 days. Coronavirus kg screen: Vaccine status: Patient reports receiving the 1st dose of the Covid vaccine. Date November 08, 2020 Moderna. Ebola Screen: Patient negative for fever greater than or equal to 101.5 degrees Fahrenheit, and additional compatible Ebola Virus Disease symptoms Patient denies exposure to infectious person. Patient denies travel to an Ebola-affected area in the 21 days before illness onset. Initial Sepsis Screen: Does the patient meet any 2 criteria? No. Patient's initial sepsis screen is negative. Does the patient have a suspected source of infection? No. Patient's initial sepsis screen is negative. Risk Assessment: Do you want to hurt yourself or someone else? Patient reports no desire to harm self or others. Onset of symptoms was November 14, 2020. 18:01 Method Of Arrival: Wheelchair kg 18:01 Acuity: BRENDAN 4 kg Triage Assessment: 18:04 General: Appears in no apparent distress. Behavior is calm, cooperative, appropriate kg for age, quiet. Pain: Complains of pain in right leg and left leg. Respiratory: Reports shortness of breath at rest on exertion cough that is productive, Onset: The symptoms/episode began/occurred gradually, the patient has mild shortness of breath. Historical: - Allergies: 18:04 Demerol; kg - Home Meds: 18:04 Eliquis 2.5 mg Oral tab 1 tab 2 times per day [Active]; montelukast 10 mg Oral tab 1 kg tab once daily [Active]; metoprolol tartrate 50 mg Oral tab 1 tab 2 times per day [Active]; atorvastatin 10 mg oral tab 1 tab [Active]; sulfasalazine 500 mg Oral TbEC 1 tab [Active]; folic acid 1 mg Oral tab 1 tab once daily [Active]; Iron CR 250 mg Oral cpER [Active]; - PMHx: 18:04 Atrial Fib; BPH; fungal meningitis; Hypertensive disorder; kg - PSHx: 18:04 Carotid endarterectomy; Hemrroid; kg - Immunization history:: Adult Immunizations up to date, Client reports receiving the 1st dose of the Covid vaccine, November 08, 2020 Julio César. - Social history:: Smoking status: Patient denies any tobacco usage or history of. Screenin:45 Abuse screen: Denies threats or abuse. Denies injuries from another. Nutritional ms4 screening: No deficits noted. Tuberculosis screening: No symptoms or risk factors identified. Fall Risk None identified. Assessment: 23:45 Reassessment: Patient appears in no apparent distress at this time. No changes from ms4 previously documented assessment. Patient and/or family updated on plan of care and expected duration. Pain level reassessed. General: Appears in no apparent distress. Behavior is calm, cooperative. Pain: Denies pain. Neuro: No deficits noted. Cardiovascular: No deficits noted. Rhythm is regular. Respiratory: Reports shortness of breath cough that is Airway is patent Respiratory effort is even, unlabored, Breath sounds are diminished bilaterally. 11/16 00:31 Reassessment: Patient appears in no apparent distress at this time. No changes from ms4 previously documented assessment. Patient and/or family updated on plan of care and expected duration. Pain level reassessed. Patient is alert, oriented x 3, equal unlabored respirations, skin warm/dry/pink. Reassessment: patient resting. no acute distress noted. infusing regencon at this time. Vital Signs: 11/15 18:01 BP 118 / 73; Pulse 95; Resp 20; Temp 98.9(TE); Pulse Ox 95% ; Weight 93.44 kg; Height 5 kg ft. 10 in. (177.80 cm); Pain 10/10; 21:08 BP 140 / 96; Pulse 106; Resp 20; Temp 98.3(TE); Pulse Ox 97% on R/A; kg 23:35 BP 178 / 97; Pulse 100; Resp 18; Temp 98.1(O); Pulse Ox 97% on R/A; ld1 11/16 00:31 BP 164 / 78; Pulse 99; Resp 16; Pulse Ox 93% on R/A; Pain 0/10; ms4 01:05 BP 184 / 84; Pulse 100; Resp 16; Temp 98.9(O); Pulse Ox 95% on R/A; tt3 01:52 BP 148 / 87; Pulse 100; Resp 16; Temp 99.0(O); Pulse Ox 96% on R/A; tt3 11/15 18:01 Body Mass Index 29.56 (93.44 kg, 177.80 cm) kg ED Course: 11/15 17:45 Patient arrived in ED. rg4 18:04 Triage completed. kg 21:06 Chuy Coleman PA is PHCP. jmm 21:06 Sonny Chacon MD is Attending Physician. jmm 21:27 Initial lab(s) drawn, by me, sent to lab. Inserted saline lock: 22 gauge in right tt3 forearm, using aseptic technique. Blood collected. 21:38 XRAY Chest (1 view) In Process Unspecified. EDMS 22:59 LFT's Sent. kg 22:59 CBC with Diff Sent. kg 22:59 Basic Metabolic Panel Sent. kg 23:46 Patient has correct armband on for positive identification. ms4 11/16 01:52 IV discontinued, intact, bleeding controlled, No redness/swelling at site. Pressure tt3 dressing applied. 01:58 No provider procedures requiring assistance completed. ms4 01:59 Patient did not have IV access during this emergency room visit. ms4 01:59 Arm band placed on. ms4 Administered Medications: 11/15 22:27 Drug: NS 0.9% 500 ml Route: IV; Rate: bolus; Site: left antecubital; ms4 22:59 Follow up: IV Status: Completed infusion; IV Intake: 500ml kg 22:59 Follow up: Response: No adverse reaction kg 23:25 Drug: REGEN-COV Dose Pack 120 mg/mL-120 mg/mL (EUA) 1 application Route: IV; Rate: ms4 calculated rate; Site: right antecubital; Intake: 22:59 IV: 500ml; Total: 500ml. kg Outcome: 11/16 01:39 Discharge ordered by . jmm 01:58 Discharged to home via wheelchair. ms4 01:58 Condition: stable 01:58 Discharge instructions given to patient, family, Instructed on discharge instructions, follow up and referral plans. Demonstrated understanding of instructions, follow-up care, medications, Prescriptions given X 2. 01:59 Patient left the ED. ms4 Signatures: Dispatcher [employer] EDMS Chuy Coleman PA PA jmm Garcia, Rubi rg4 Fernando, Jermaine tt3 Jeni Connor RN RN ld1 Ruby Chaudhari, RN RN kg Alissa Garcia RN RN ms4
--- NOTE | 2020-11-16 01:41 | EDPHYS ---
Physician Documentation [facility] Name: Sly Sheets Age: 85 yrs Sex: Male : 1935 Arrival Date: 11/15/2020 Time: 17:45 Bed DX3 Private MD: ED Physician Sonny Chacon HPI: 11/16 01:36 This 85 yrs old Male presents to ER via Wheelchair with complaints of Fever, jmm Breathing Difficulty. 01:36 Onset: The symptoms/episode began/occurred gradually, 2 day(s) ago. Modifying factors: jmm there are no obvious modifying factors. Associated signs and symptoms: Pertinent positives: cough. The patient has not experienced similar symptoms in the past. Is an 85-year-old male with a history of atrial fibrillation, hypertension that presents to the emergency department with complaints of headache, fatigue, mild cough beginning approximately 2 days ago. Patient denies chest pain or abdominal pain.. Historical: - Allergies: 11/15 18:04 Demerol; kg - Home Meds: 18:04 Eliquis 2.5 mg Oral tab 1 tab 2 times per day [Active]; montelukast 10 mg Oral tab 1 kg tab once daily [Active]; metoprolol tartrate 50 mg Oral tab 1 tab 2 times per day [Active]; atorvastatin 10 mg oral tab 1 tab [Active]; sulfasalazine 500 mg Oral TbEC 1 tab [Active]; folic acid 1 mg Oral tab 1 tab once daily [Active]; Iron CR 250 mg Oral cpER [Active]; - PMHx: 18:04 Atrial Fib; BPH; fungal meningitis; Hypertensive disorder; kg - PSHx: 18:04 Carotid endarterectomy; Hemrroid; kg - Immunization history:: Adult Immunizations up to date, Client reports receiving the 1st dose of the Covid vaccine, November 08, 2020 [facility]. - Social history:: Smoking status: Patient denies any tobacco usage or history of. ROS: 11/16 01:36 Constitutional: Positive for body aches, chills. jmm Respiratory: Positive for cough. All other systems are negative. Exam: 01:36 Constitutional: This is a well developed, well nourished patient who is awake, alert, jmm and in no acute distress. Head/Face: atraumatic. Eyes: EOMI, no conjunctival erythema appreciated ENT: Moist Mucus Membranes Neck: Trachea midline, Supple Chest/axilla: Normal chest wall appearance and motion. Cardiovascular: Regular rate and rhythm. No edema appreciated Respiratory: Normal respirations, no respiratory distress appreciated Abdomen/GI: Non distended, soft Back: Normal ROM Skin: General appearance color normal 01:36 Musculoskeletal/extremity: Full dorsalis pulses appreciated bilaterally, the first MTP tender to palpation bilaterally, no erythema. 01:36 Skin: Appearance: Color: normal in color. 01:36 Neuro: Orientation: is normal, Mentation: is normal, Memory: is normal. 01:36 Psych: Behavior/mood is pleasant, cooperative. Vital Signs: 11/15 18:01 BP 118 / 73; Pulse 95; Resp 20; Temp 98.9(TE); Pulse Ox 95% ; Weight 93.44 kg; Height 5 kg ft. 10 in. (177.80 cm); Pain 10/10; 21:08 BP 140 / 96; Pulse 106; Resp 20; Temp 98.3(TE); Pulse Ox 97% on R/A; kg 23:35 BP 178 / 97; Pulse 100; Resp 18; Temp 98.1(O); Pulse Ox 97% on R/A; ld1 11/16 00:31 BP 164 / 78; Pulse 99; Resp 16; Pulse Ox 93% on R/A; Pain 0/10; ms4 01:05 BP 184 / 84; Pulse 100; Resp 16; Temp 98.9(O); Pulse Ox 95% on R/A; tt3 01:52 BP 148 / 87; Pulse 100; Resp 16; Temp 99.0(O); Pulse Ox 96% on R/A; tt3 11/15 18:01 Body Mass Index 29.56 (93.44 kg, 177.80 cm) kg MDM: 11/15 21:48 Patient medically screened. [facility] 11/16 01:38 Data reviewed: vital signs, nurses notes. Counseling: I had a detailed discussion with maria isabel the patient and/or guardian regarding: the historical points, exam findings, and any diagnostic results supporting the discharge/admit diagnosis, lab results, radiology results, the need for outpatient follow up, to return to the emergency department if symptoms worsen or persist or if there are any questions or concerns that arise at home. ED course: Patient is alert nontoxic in appearance in the ER. No signs of respiratory distress. Patient has no O2 requirement. Patient was administered Regeneron in the ED. Patient also complains of ongoing foot pain. Will prescribe a mild muscle relaxer to help with discomfort. Patient is otherwise given strict return precautions. Patient understood and agrees to plan of care.. 11/15 18:08 Order name: COVID-19 : Document "Date of Symptom Onset" if Symptomatic. kg 11/15 20:03 Order name: SARS-COV-2 RT PCR; Complete Time: 21:26 EDMS 11/15 21:06 Order name: Basic Metabolic Panel kg 11/15 21:06 Order name: CBC with Diff kg 11/15 21:06 Order name: LFT's kg 11/15 21:06 Order name: Magnesium; Complete Time: 22:17 kg 11/15 21:06 Order name: NT PRO-BNP; Complete Time: 22:17 kg 11/15 21:06 Order name: PT-INR; Complete Time: 22:17 kg 11/15 21:06 Order name: Troponin (emerg Dept Use Only); Complete Time: 22:17 kg 11/15 21:06 Order name: XRAY Chest (1 view); Complete Time: 21:49 kg 11/15 21:06 Order name: Basic Metabolic Panel; Complete Time: 22:17 EDMS 11/15 21:06 Order name: CBC with Automated Diff; Complete Time: 22:17 EDMS 11/15 21:06 Order name: Liver (Hepatic) Function; Complete Time: 22:17 EDMS 11/15 21:06 Order name: EKG; Complete Time: 21:07 kg 11/15 21:06 Order name: Cardiac monitoring; Complete Time: 22:59 kg 11/15 21:06 Order name: EKG - Nurse/Tech; Complete Time: 21:06 kg 11/15 21:06 Order name: IV Saline Lock; Complete Time: 22:59 kg 11/15 21:06 Order name: Labs collected and sent; Complete Time: 22:59 kg 02 21:06 Order name: O2 Per Protocol; Complete Time: 22:59 kg 11/15 21:06 Order name: O2 Sat Monitoring; Complete Time: 22:59 kg Administered Medications: 11/15 22:27 Drug: NS 0.9% 500 ml Route: IV; Rate: bolus; Site: left antecubital; ms4 22:59 Follow up: IV Status: Completed infusion; IV Intake: 500ml kg 22:59 Follow up: Response: No adverse reaction kg 23:25 Drug: REGEN-COV Dose Pack 120 mg/mL-120 mg/mL (EUA) 1 application Route: IV; Rate: ms4 calculated rate; Site: right antecubital; Disposition: 11/16 06:36 Co-signature as Attending Physician, Sonny Chacon MD. pkroxy Disposition Summary: 11/16/20 01:39 Discharge Ordered Location: Home [facility] Condition: Stable jmm Diagnosis - Coronavirus infection, unspecified jmm - Pain in left foot jmm - Pain in right foot jmm Followup: [facility] - With: Private Physician - When: 2 - 3 days - Reason: Recheck today's complaints, Continuance of care, Re-evaluation by your physician Discharge Instructions: - Discharge Summary Sheet [facility] - Foot Pain jm - COVID-19 [facility] Forms: - Medication Reconciliation Form [facility] - Thank You Letter [facility] - Antibiotic Education [facility] - Prescription Opioid Use [facility] Prescriptions: - albuterol sulfate 90 mcg/actuation Inhalation HFA aerosol inhaler - inhale 2 puff by INHALATION route every 6 hours; 1 Pump; Refills: 0, Product [facility] Selection Permitted - orphenadrine citrate 100 mg Oral Tablet Sustained Release - take 1 tablet by ORAL route 2 times per day As needed; 20 tablet; Refills: 0, [facility] Product Selection Permitted Signatures: Dispatcher [employer] EDMS Sonny Chacon MD MD pkl Chuy Coleman PA PA [facility] Ruby Chaudhari, JOYCE RN kg Alissa Garcia RN RN ms4 Corrections: (The following items were deleted from the chart) 11/15 18:23 18:09 CORONAVIRUS ordered. EDOR EDMS
[2020-11-16 02:21] VITALS: BP 148/87; TEMP 99; O2SAT 96
--- NOTE | 2020-11-16 07:42 | EKG ---
Test Date: 2020-11-15 Test Time: 21:09:19 Dock Attendant: TLT MEASUREMENT RESULTS: Intervals: Rate: 108 VA: 182 QRSD: 80 QT: 338 QTc: 452 [place]: P: 88 VA: 182 QRS: 29 T: 59 INTERPRETIVE STATEMENTS: Sinus tachycardia Nonspecific ST abnormality Abnormal ECG Compared to ECG 04/18/2017 01:47:59 Sinus bradycardia no longer present Atrial premature complex(es) no longer present ST (T wave) deviation still present Electronically Signed On 11-16-20 07:41:48 CDT by Nicholas Mclean
== END 2020-11-16 01:59 | disposition home or self-care (01) ==
LOC: ER 17:43
DX: U07.1 COVID-19 (principal); M79.672 Pain in left foot; M79.671 Pain in right foot; I10 Essential (primary) hypertension; I48.91 Unspecified atrial fibrillation; Z79.01 Long term (current) use of anticoagulants; Z88.5 Allergy status to narcotic agent
CPT/HCPCS: 96361; 93005; 85025; 80048; 36415; 83735; 85610; 80076; 84484; 83880; 71045; 96374; 99284; U0003; J7050; J7040